=== PATIENT | female | born 1940 | race Caucasian/White ===

== ENCOUNTER 2018-09-24 04:52 | Inpatient (IN) ==
[2018-09-24] MEDS ORDERED: Dexmedetomidine Inj 200 MCG in Sodium Chlor 0.9% Inj 48 ML IV.CONT PRN (05:09)
[2018-09-24] MEDS ORDERED: Etomidate Inj 40 MG/20 ML Vial IV.PUSH ONE (05:09)
[2018-09-24 05:28] LABS: Baso # (Auto) 0.1 th/mm3 (0.0-0.2); Baso % (Auto) 0.2 % (0.0-2.0); Eos # (Auto) 0.9 th/mm3 (0.0-0.4); Eos % (Auto) 2.9 % (0.0-4.0); Hematocrit 51.9 % (35.0-46.0); Hemoglobin 15.9 gm/dL (11.6-15.3); Lymph # (Auto) 2.9 th/mm3 (1.0-4.8); Lymph % (Auto) 9.6 % (9.0-44.0); Mean Corpuscular Hemoglobin 23.1 pg (27.0-34.0); Mean Corpuscular Volume 75.7 fL (80.0-100.0); Mean Platelet Volume 8.3 fL (7.0-11.0); Mono # (Auto) 1.5 th/mm3 (0.0-0.9); Mono % (Auto) 4.8 % (0.0-8.0); Neut # (Auto) 25.3 th/mm3 (1.8-7.7); Neut % (Auto) 82.5 % (16.0-70.0); Platelet Count 665 th/mm3 (150-450); Red Blood Count 6.86 mil/mm3 (4.00-5.30); Red Cell Distribution Width 20.4 % (11.6-17.2); White Blood Count 30.7 th/mm3 (4.0-11.0)
[2018-09-24 05:34] LABS: Mean Corpuscular HGB Conc 30.5 % (32.0-36.0)
--- NOTE | 2018-09-24 05:43 | XR ---
EXAM DATE: 09/24/2018 5:40 AM EST AGE/SEX: 77 years / Female INDICATIONS: Cough. CLINICAL DATA: This is the patient's initial encounter. Patient reports that signs and symptoms have been present for 1 day and indicates a pain score of Nonresponsive. MEDICAL/SURGICAL HISTORY: . Carcinoma, breast. Chronic obstructive pulmonary disease. Hypertens ion. . Mastectomy, bilateral. COMPARISON: No prior exams available for comparison. FINDINGS: Single AP view the chest. Bilateral lower lung zone opacity right greater than left indicating either consolidation or asymmetric pulmonary edema. Mildly enlarged cardiac silhouette. No evidence of pleu ral effusion or pneumothorax. CONCLUSION: 1. Mild right greater than left lower lung zone pulmonary opacity. 2. Mild cardiac silhouette enlargement. Electronically signed by: Magdi Chin MD 09/24/2018 5:42 AM EST
[2018-09-24] MEDS ORDERED: Piperacil/Tazo 4.5 GM Premix 4.5 GM/100 ML BAG IV.SIG STA (05:44)
[2018-09-24 05:47] LABS: ABG Base Excess -2.1 mmol/L (-2-2); ABG PCO2 53 mmHg (38-42); ABG PO2 97 mmHg (61-120)
[2018-09-24 05:48] LABS: Alkaline Phosphatase 148 U/L (45-117); Total Protein 6.9 g/dL (6.4-8.2); Troponin I 0.08 ng/mL (0.02-0.05)
[2018-09-24] MEDS ORDERED: Sod Chloride 0.9% Inj 1,000 ML IV.SIG SCH ×2 (06:00→06:15)
[2018-09-24 06:01] LABS: Alanine Aminotransferase 65 U/L (10-53); Albumin 3.5 g/dL (3.4-5.0); Anion Gap 11 meq/L (5-15); Aspartate Aminotransferase 53 U/L (15-37); Blood Urea Nitrogen 10 mg/dL (7-18); Calcium 8.5 mg/dL (8.5-10.1); Carbon Dioxide 24.2 meq/L (21.0-32.0); Chloride 101 meq/L (98-107); Glomerular Filtration Rate 72 mL/min (>89); Glucose,Random 244 mg/dL (74-106); Potassium 4.4 meq/L (3.5-5.1); Sodium 136 meq/L (136-145)
[2018-09-24] MEDS ORDERED: Sod Chloride 0.9% Inj 100 ML IV.SIG SCH (06:15)
--- NOTE | 2018-09-24 06:23 | ED ---
HPI General Chief Complaint: Respiratory Symptoms Stated Complaint: resp Time Seen by Provider: 09/24/18 05:08 Source: patient and EMS Mode of arrival: EMS Limitations: other History of Present Illness Patient is a 77-year-old female, past medical history significant for COPD not on oxygen at home, who presents with complaint of several days of shortness of breath. She denies any chest or abdominal pain. She denies any fever or chills. EMS states that on their arrival her pulse ox was in the 70s on room air. They gave her 2 duo nebs and one albuterol en route in addition to 125 mg of Solu-Medrol. They state that she has started to appear slightly more comfortable. Patient answers yes or no to questions but is too dyspneic to provide much other information. She denies immobilization or leg swelling. MD Complaint: Reports shortness of breath and anxiety Onset (ago): day(s) Severity: severe Consistency/Duration: constant Relieving factors: nothing Exacerbating factors: nothing Known history of: Reports COPD Treatment prior to arrival: Reports bronchodilator and other Related Data Home Medications Medication Instructions Recorded Confirmed amlodipine 2.5 mg PO DAILY 09/24/18 09/24/18 aspirin 325 mg PO DAILY 09/24/18 09/24/18 atorvastatin 10 mg PO DAILY 09/24/18 09/24/18 calcium carbonate-vitamin D3 1 tab PO QAM 09/24/18 09/24/18 [Calcium 600 + D(3)] fluticasone 1 inh INHALATION Q12H 09/24/18 09/24/18 letrozole 2.5 mg PO DAILY 09/24/18 09/24/18 losartan 50 mg PO BID 09/24/18 09/24/18 magnesium oxide 40 mg PO DAILY 09/24/18 09/24/18 nebivolol [Bystolic] 5 mg PO DAILY 09/24/18 09/24/18 nitroglycerin 0.4 mg SUBLINGUAL Q5-15M PRN 09/24/18 09/24/18 omega 5-zpe-gby-fish oil [Fish Oil] 1,200 mg PO DAILY 09/24/18 09/24/18 pantoprazole [Protonix] 40 mg PO DAILY 09/24/18 09/24/18 polyethylene glycol 3350 [Miralax] 17 g PO DAILY PRN 09/24/18 09/24/18 umeclidinium-vilanterol [Anoro 1 inh INHALATION Q24H 09/24/18 09/24/18 Ellipta] wheat dextrin [Benefiber Sugar 1 packet PO DAILY 09/24/18 09/24/18 Free (dextrin)] Allergies Allergy/AdvReac Type Severity Reaction Status Date / Time No Known Allergies Allergy Uncoded 05/30/15 10:00 Review of Systems ROS Unobtainable ROS Unobtainable: other (unobtainable due to respiratory distress) [facility] Medical History Medical History COPD (chronic obstructive pulmonary disease) (Acute) Diabetes (Acute) HTN (hypertension) (Acute) Surgical History Surgical History H/O mastectomy (Acute) Social History Social History Substance History: Unable to Obtain Smoking Status: Unknown if ever smoked How Often Do You Have a Drink Containing Alcohol: Unable to Obtain Recent Travel in [facility] within the Last 8 Weeks: No Recent Out of Country Travel within the Last 8 Weeks: No Immunization History Tetanus Immunization: Unable to Assess Exam Narrative Exam Narrative: GENERAL: Elderly female in respiratory distress, sitting up and forward SKIN: Focused skin assessment warm. Diaphoretic. HEAD: Atraumatic. Normocephalic. EYES: Pupils equal and round. No scleral icterus. No injection or drainage. ENT: No nasal bleeding or discharge. Mucous membranes pink and moist. NECK: Trachea midline. No JVD. CARDIOVASCULAR: Tachycardic but regular. Intact and equal peripheral pulses. RESPIRATORY: Diminished breath sounds throughout GASTROINTESTINAL: Abdomen soft, non-tender, nondistended. Hepatic and splenic margins not palpable. MUSCULOSKELETAL: No obvious deformities. No clubbing. No cyanosis. No edema. NEUROLOGICAL: Awake and alert. No obvious cranial nerve deficits. Motor grossly within normal limits. PSYCHIATRIC: Anxious Course Initial Documented Vital Signs Pulse Rate 132 H 09/24/18 05:15 Respiratory Rate 30 H 09/24/18 05:15 Pulse Oximetry 99 09/24/18 05:15 Last Documented Vital Signs Pulse Rate 125 H 09/24/18 05:22 Respiratory Rate 30 H 09/24/18 05:22 Blood Pressure 142/95 H 09/24/18 05:22 Pulse Oximetry 97 09/24/18 05:22 Critical Care Time Critical Care Time: Yes Total Critical Care Time: 35 Attestation: Aggregate critical care time was 35 minutes. Time to perform other separately billable procedures was not included in the critical care time. My time did not include minutes spent treating any other patients simultaneously or on activities that did not directly contribute to the patient's treatment. The services I provided to this patient were to treat and/or prevent clinically significant deterioration that could result in: , disability I provided critical care services requiring my management, as noted below: Chart data review, documentation time, medication orders and management, vital sign assessments/reviewing monitor data, ordering and reviewing lab tests, ordering and interpreting/reviewing x-rays and diagnostic studies, care of the patient and discussion of the patient with the admitting physicians. Medical Decision Making MDM Narrative Medical decision making narrative: Patient is a 77-year-old female who presents in respiratory distress. She was received 3 breathing treatments and 125 mg Solu-Medrol with EMS. On arrival she continued to be in respiratory distress and when taken off oxygen brief relief from what I pressed to another her oxygen saturation dropped into the 70s and 80s. She was immediately placed on BiPAP but was exceedingly anxious. She was given 0.5 mg of Ativan after which she tolerated the BiPAP much better. She was then started on a Precedex drip. Labs revealed a markedly elevated leukocytosis and chest x-ray is concerning for pneumonia. Sepsis protocol was initiated. She has not been admitted to the hospital in the last 3 months and thus was given Zosyn for ICU community- acquired pneumonia. She has been admitted to the ICU. Medical Screen Exam Complete: Yes Emergency Medical Condition: Yes Differential Diagnosis Differential Diagnosis: Differential diagnosis includes but is not limited to pneumonia, COPD exacerbation, pulmonary edema, CHF exacerbation, acute coronary syndrome. Medical Records Medical records reviewed: Yes I reviewed the patient's medical records. Lab Data Result diagrams: 09/24/18 05:15 09/24/18 05:15 Lab Results 09/24/18 09/24/18 09/24/18 Range/Units 05:15 05:15 05:15 WBC 30.7 H (4.0-11.0) th/mm3 RBC 6.86 H (4.00-5.30) mil/mm3 Hgb 15.9 H (11.6-15.3) gm/dL Hct 51.9 H (35.0-46.0) % MCV 75.7 L (80.0-100.0) fL MCH 23.1 L (27.0-34.0) pg MCHC 30.5 L (32.0-36.0) % RDW 20.4 H (11.6-17.2) % Plt Count 665 H (150-450) th/mm3 MPV 8.3 (7.0-11.0) fL Prelim Diff (Auto) Slide review pending Neut % (Auto) 82.5 H (16.0-70.0) % Lymph % (Auto) 9.6 (9.0-44.0) % Orange % (Auto) 4.8 (0.0-8.0) % Eos % (Auto) 2.9 (0.0-4.0) % Baso % (Auto) 0.2 (0.0-2.0) % Neut # (Auto) 25.3 H (1.8-7.7) th/mm3 Lymph # (Auto) 2.9 (1.0-4.8) th/mm3 Orange # (Auto) 1.5 H (0.0-0.9) th/mm3 Eos # (Auto) 0.9 H (0.0-0.4) th/mm3 Baso # (Auto) 0.1 (0.0-0.2) th/mm3 Differential Comment . Puncture Site Patient Temperature O2 Saturation (90-100) % ABG pH (7.380-7.420) ABG pCO2 (38-42) mmHg ABG pO2 (61-120) mmHg ABG HCO3 (22-26) mmol/L ABG O2 Content (12.0-20.0) Vol % ABG Base Excess (-2-2) mmol/L ABG Methemoglobin (0-2) % Jorge Test Hemoglobin (12.0-16.0) G/DL Carboxyhemoglobin (0-4) % O2 Delivery Device Vent Setting Inspired O2 % Critical Value Sodium 136 (136-145) meq/L Potassium 4.4 (3.5-5.1) meq/L Chloride 101 (98-107) meq/L Carbon Dioxide 24.2 (21.0-32.0) meq/L Anion Gap 11 (5-15) meq/L BUN 10 (7-18) mg/dL Creatinine 0.78 (0.50-1.00) mg/dL Estimated GFR 72 L (>89) mL/min Random Glucose 244 H (74-106) mg/dL Calcium 8.5 (8.5-10.1) mg/dL Magnesium 2.0 (1.5-2.5) mg/dL Total Bilirubin 0.8 (0.2-1.0) mg/dL AST 53 H (15-37) U/L ALT 65 H (10-53) U/L Alkaline Phosphatase 148 H (45-117) U/L Troponin I 0.08 H (0.02-0.05) ng/mL B-Natriuretic Peptide 194 H (0-100) pg/mL Total Protein 6.9 (6.4-8.2) g/dL Albumin 3.5 (3.4-5.0) g/dL 09/24/18 Range/Units 05:36 WBC (4.0-11.0) th/mm3 RBC (4.00-5.30) mil/mm3 Hgb (11.6-15.3) gm/dL Hct (35.0-46.0) % MCV (80.0-100.0) fL MCH (27.0-34.0) pg MCHC (32.0-36.0) % RDW (11.6-17.2) % Plt Count (150-450) th/mm3 MPV (7.0-11.0) fL Prelim Diff (Auto) Neut % (Auto) (16.0-70.0) % Lymph % (Auto) (9.0-44.0) % Orange % (Auto) (0.0-8.0) % Eos % (Auto) (0.0-4.0) % Baso % (Auto) (0.0-2.0) % Neut # (Auto) (1.8-7.7) th/mm3 Lymph # (Auto) (1.0-4.8) th/mm3 Orange # (Auto) (0.0-0.9) th/mm3 Eos # (Auto) (0.0-0.4) th/mm3 Baso # (Auto) (0.0-0.2) th/mm3 Differential Comment Puncture Site Right radial Patient Temperature 98.6 O2 Saturation 94 (90-100) % ABG pH 7.27 L* (7.380-7.420) ABG pCO2 53 H* (38-42) mmHg ABG pO2 97 (61-120) mmHg ABG HCO3 24 (22-26) mmol/L ABG O2 Content 20.5 H (12.0-20.0) Vol % ABG Base Excess -2.1 L (-2-2) mmol/L ABG Methemoglobin 0.7 (0-2) % Jorge Test Present Hemoglobin 15.5 (12.0-16.0) G/DL Carboxyhemoglobin 1.1 (0-4) % O2 Delivery Device Bipap Vent Setting Cpap 7 Inspired O2 40 % Critical Value Yes Sodium (136-145) meq/L Potassium (3.5-5.1) meq/L Chloride (98-107) meq/L Carbon Dioxide (21.0-32.0) meq/L Anion Gap (5-15) meq/L BUN (7-18) mg/dL Creatinine (0.50-1.00) mg/dL Estimated GFR (>89) mL/min Random Glucose (74-106) mg/dL Calcium (8.5-10.1) mg/dL Magnesium (1.5-2.5) mg/dL Total Bilirubin (0.2-1.0) mg/dL AST (15-37) U/L ALT (10-53) U/L Alkaline Phosphatase (45-117) U/L Troponin I (0.02-0.05) ng/mL B-Natriuretic Peptide (0-100) pg/mL Total Protein (6.4-8.2) g/dL Albumin (3.4-5.0) g/dL Imaging Data Attestation: I personally reviewed and interpreted this imaging study as follows : My impression: Lung space opacity. Radiologist's impression: Chest X-Ray 09/24/18 05:08 CONCLUSION: 1. Mild right greater than left lower lung zone pulmonary opacity. 2. Mild cardiac silhouette enlargement. ECG Data EKG Prior to Arrival: No Attestation: I personally reviewed and interpreted this ECG as follows: (Sinus tachycardia at a rate of [address] or T wave changes. ) Discharge Plan Discharge Disposition Patient Disposition: 30 Still Patient Discharge Condition Condition: Serious Discharge Details Diagnosis: Respiratory failure, Acute exacerbation of chronic obstructive pulmonary disease (COPD), Pneumonia, Sepsis Physicians Team ED Provider: Carolina Canela Primary Care Provider: Pawel Rodriguez Attending Provider: Yolis Castellano Discharge Interventions Interventions: Vital Signs Last Done: 09/24/18 05:22 Status ED Status: Admitted Patient
[2018-09-24] MEDS ORDERED: Potassium Chlor 20 mEq Premix 20 MEQ/100 ML PIGGYBACK IV.SIG PRN ×2 (06:50)
[2018-09-24] MEDS ORDERED: Potassium Phosphate Inj 30 MMOL in Sodium Chlor 0.9% Inj 250 ML IV.SIG PRN (06:50)
[2018-09-24] MEDS ORDERED: Sodium Phosphate Inj 30 MMOL in Sodium Chlor 0.9% Inj 250 ML IV.SIG PRN (06:50)
[2018-09-24] MEDS ORDERED: Bisacodyl 10 MG Supp RECTAL PRN (06:50)
[2018-09-24] MEDS ORDERED: Magnesium Sulfate Inj 4 GM in Sodium Chlor 0.9% Inj 92 ML IV.SIG PRN (06:50)
[2018-09-24] MEDS ORDERED: Potassium Phosphate 500 MG Soluble Tablet PO PRN ×2 (06:50)
[2018-09-24] MEDS ORDERED: Potassium Chlor 40 mEq Premix 40 MEQ/100 ML PIGGYBACK IV.SIG PRN ×2 (06:50)
[2018-09-24] MEDS ORDERED: Magnesium Sulfate Inj 2 GM in Sodium Chlor 0.9% Inj 96 ML IV.SIG PRN (06:50)
[2018-09-24] MEDS ORDERED: Magnesium Oxide 400 MG Tablet PO PRN (06:50)
[2018-09-24] MEDS ORDERED: Potassium Chloride 25 MEQ Effervescent Tablet PO PRN (06:50)
[2018-09-24 06:54] LABS: Metamyelocytes 1 % (0-1); Monocytes 3 % (0-8)
[2018-09-24 06:55] LABS: Acanthocytes Occ; Lymphocytes 11 % (9-44); Ovalocytes 1+
[2018-09-24 06:56] LABS: Platelet Morphology Normal (Normal)
[2018-09-24] MEDS ORDERED: Magnesium Sulfate Inj 2 GM in Sodium Chlor 0.9% Inj 96 ML IV.SIG ONE (06:56)
--- NOTE | 2018-09-24 07:24 | P.HPCC ---
History of Present Illness Service: [facility] [place] Primary Care Physician: Pawel Rodriguez MD Chief Complaint: Shortness of breath History of Present Illness: 77yF presenting to the Emergency Department via EMS with complaint of shortness of breath and cough x 2-3 days. The patient states that she's had a productive cough and is dyspneic both and rest and on exertion, denies fever or chills, chest pain, palpitations, nausea, or myalgias. On EMS arrival, she was found to have a pulse ox in the 70s on room air, was given 125 mg solumedrol and 2 duonebs prior to arrival. In the ED, the patient was tachypneic and somewhat distressed, found to have pH of 7.27 and pCO2 of 53, bibasilar pneumonia (R>L), and appeared anxious. She was placed on bipap but had difficulty tolerating the mask due to anxiety, was given low-dose ativan and started on low-dose precedex drip with relief of anxiety and respiratory distress. No known recent sick contacts or travel. She has a history of COPD, not on home O2, not on chronic or frequent steroids, with home nebulizer/ inhalers, does not use CPAP/ BiPAP, does not follow with a pitch flaker, 1 admission for COPD in the past (no previous ICU admissions), no previous intubations. Former smoking history, quit 40 years ago. Lives at home, no hospitalizations within the past 3 months. Family history is non-contributory. - Diagnosis (1) Community acquired pneumonia (2) Respiratory failure (3) Acute exacerbation of chronic obstructive pulmonary disease (COPD) (4) Sepsis Inpatient Certification: I certify that the inpatient services were ordered in accordance with Medicare regulations governing the order. This includes certification that hospital inpatient services are reasonable and necessary and in the case of services not specified as inpatient-only under 42 CFR 419.22(n), that they are appropriately provided as inpatient services in accordance to with the 2-midnight benchmark under 43 CFR 412.3(e) Estimated Total Length of Stay (Days): 4 Plans for Post Hospital Care: Home Review of Systems All other systems reviewed negative except as stated in HPI Constitutional: Denies fever(s) Ears, Nose, Mouth, and Throat: Reports nasal congestion Cardiovascular: Denies chest pain Respiratory: Reports cough, Reports shortness of breath Gastrointestinal: Denies abdominal pain, Denies nausea Genitourinary: Denies painful urination Musculoskeletal: Denies body aches Neurologic: Denies confusion Psychiatric: Denies confusion [facility] - History History Provided By: Patient, It Operations Manager / EMT - Medical History Medical History: Medical History (Last Reviewed 09/24/18 @ 07:01 by Yolis Castellano DO) COPD (chronic obstructive pulmonary disease) Diabetes HTN (hypertension) - Surgical History Surgical History: Surgical History (Last Reviewed 09/24/18 @ 07:01 by Yolis Castellano DO) H/O mastectomy - Social History I have reviewed the patient's Social History: Yes - Tobacco History Tobacco Use In Past 30 Days: No Smoking Status: Former smoker Tobacco Type: Cigarettes - Alcohol History How Often Do You Have a Drink Containing Alcohol: 2 to 4 times a month - Substance Use History Substance History: No History of Abuse, Unable to Obtain - Travel History History of Recent Travel: No Recent Travel in the [place] Within the Last 8 Weeks: No Recent Travel Out of the Country Within the Last 8 Weeks: No - Immunization History Tetanus Immunization: Unable to Assess Medications and Allergies Active Medications: Active Medications Acetaminophen (Tylenol) 650 mg PO Q6H PRN PRN Reason: PAIN 1-10 AND/OR FEVER >101F Al Hydroxide/Mg Hydroxide (Milk Of Magnlisa Liq) 30 ml PO Q12H PRN PRN Reason: Mild Constipation Albuterol (Albuterol Neb (Ruben)) 2.5 mg NEB Q2HR NEB PRN PRN Reason: SHORTNESS OF BREATH/WHEEZING Albuterol (Duoneb Neb (Prn)) 1 ampul NEB Q4HR NEB [facility] Aspirin (Aspirin) 325 mg PO DAILY [facility] Atorvastatin Calcium (Lipitor) 10 mg PO DAILY [facility] Bisacodyl (Dulcolax Supp) 10 mg RECTAL DAILY PRN PRN Reason: SEVERE CONSITIPATION Chlorhexidine Gluconate (Chlorhexidine 2% Cloth) 3 pack TOPICAL DAILY@0400 RUBEN Stop: 09/30/18 03:59 Chlorhexidine Gluconate (Chlorhexidine 2% Cloth) 3 pack TOPICAL DAILY@0400 PRN PRN Reason: Extra cloth needed Stop: 09/30/18 03:59 Enoxaparin Sodium (Lovenox Inj) 40 mg SQ Q24H [facility] Dexmedetomidine HCl 200 mcg/ (Sodium Chloride) 50 mls @ 3.25 mls/hr IV.CONT TITRATE PRN; Protocol PRN Reason: Per Protocol Last Admin: 09/24/18 05:37 Dose: 0.2 mcg/kg/hr, 3.25 mls/hr Sodium Chloride (Ns Inj) 1,000 mls @ 0 mls/hr IV.SIG .Q0M RUBEN Sodium Chloride (Ns Inj) 1,000 mls @ 0 mls/hr IV.SIG .Q0M RUBEN Sodium Chloride (Ns Inj) 100 mls @ 0 mls/hr IV.SIG .Q0M RUBEN Magnesium Sulfate 4 gm/ Sodium (Chloride) 100 mls @ 50 mls/hr IV.SIG UNSCH PRN PRN Reason: For Magnesium 0.9 - 1.1 mg/dL Potassium Chloride (Kcl 40 Meq Premix Inj) 40 meq in 100 mls @ 25 mls/hr IV.SIG Q2H PRN PRN Reason: For Potassium 2.8 - 3.2 mEq/L Potassium Chloride (Kcl 20 Meq Premix Inj) 20 meq in 100 mls @ 50 mls/hr IV.SIG Q2H PRN PRN Reason: For Potassium 3.3 - 3.5 mEq/L Potassium Chloride (Kcl 20 Meq Premix Inj) 20 meq in 100 mls @ 50 mls/hr IV.SIG Q2H PRN PRN Reason: For Potassium 2.8 - 3.2 mEq/L Potassium Phosphate 30 mmol/ (Sodium Chloride) 260 mls @ 42 mls/hr IV.SIG UNSCH PRN PRN Reason: SEE LABEL COMMENTS Sodium Phosphate 30 mmol/ (Sodium Chloride) 260 mls @ 42 mls/hr IV.SIG UNSCH PRN PRN Reason: For Phosphorus < 2.5 mg/dL Magnesium Sulfate 2 gm/ Sodium (Chloride) 100 mls @ 50 mls/hr IV.SIG UNSCH PRN PRN Reason: For Magnesium 1.2 - 1.6 mg/dL Potassium Chloride (Kcl 40 Meq Premix Inj) 40 meq in 100 mls @ 25 mls/hr IV.SIG UNSCH PRN PRN Reason: For Potassium 3.3 - 3.5 mEq/L Magnesium Sulfate 2 gm/ Sodium (Chloride) 100 mls @ 50 mls/hr IV.SIG ONCE ONE Stop: 09/24/18 08:55 Ipratropium Parsons (Atrovent Neb) 0.5 mg NEB Q2HR NEB PRN PRN Reason: WHEEZING Lactulose (Lactulose Liq) 30 ml PO DAILY PRN PRN Reason: SEVERE CONSITIPATION Losartan Potassium (Cozaar) 50 mg PO BID [facility] Magnesium Oxide (Mag-Ox) 800 mg PO UNSCH PRN PRN Reason: For Magnesium 1.2 - 1.6 mg/dL Nebivolol (Bystolic) 5 mg PO DAILY [facility] Nitroglycerin (Nitrostat Sl (Override)) 0.4 mg SL Q5-15M PRN PRN Reason: Constipation Non-Formulary Medication (Amlodipine [Amlodipine]) 2.5 mg PO DAILY RUBEN Non-Formulary Medication (Fluticasone [Fluticasone]) 1 inh INHALATION Q12H RUBEN Non-Formulary Medication (Letrozole [Letrozole]) 2.5 mg PO DAILY [facility] Ondansetron HCl (Zofran Inj) 4 mg IV.PUSH Q6H PRN PRN Reason: NAUSEA OR VOMITING Potassium Bicarb/Potassium Chloride (K-Lyte Cl Eff) 50 meq PO UNSCH PRN PRN Reason: For Potassium 3.3 - 3.5 mEq/L Potassium Phosphate (K-Phos Original) 2,000 mg PO Q4H PRN PRN Reason: Phosphorus Less Than 2.5 mg/dL Potassium Phosphate (K-Phos Original) 2,000 mg PO UNSCH PRN PRN Reason: SEE LABEL COMMENTS Senna/Docusate Sodium (Ita-Colace) 1 tab PO BID [facility] Sennosides (Senokot) 17.2 mg PO Q12H PRN PRN Reason: Moderate Constipation Sodium Chloride (Ns Flush) 2 ml IV.FLUSH BID [facility] Sodium Chloride (Ns Flush) 2 ml IV.FLUSH PRN PRN PRN Reason: FLUSH AFTER USING IV ACCESS Umeclidinium/Vilanterol (Anoro-Ellipta 62.5/25 Mcg Inh) inhalation INH Q24H [facility] Allergies Allergy/AdvReac Type Severity Reaction Status Date / Time No Known Allergies Allergy Uncoded 05/30/15 10:00 Home Medications Medication Instructions Recorded Confirmed Type amlodipine 2.5 mg PO DAILY 09/24/18 09/24/18 History aspirin 325 mg PO DAILY 09/24/18 09/24/18 History atorvastatin 10 mg PO DAILY 09/24/18 09/24/18 History calcium carbonate-vitamin D3 1 tab PO QAM 09/24/18 09/24/18 History [Calcium 600 + D(3)] fluticasone 1 inh INHALATION Q12H 09/24/18 09/24/18 History letrozole 2.5 mg PO DAILY 09/24/18 09/24/18 History losartan 50 mg PO BID 09/24/18 09/24/18 History magnesium oxide 40 mg PO DAILY 09/24/18 09/24/18 History nebivolol [Bystolic] 5 mg PO DAILY 09/24/18 09/24/18 History nitroglycerin 0.4 mg SUBLINGUAL Q5-15M PRN 09/24/18 09/24/18 History omega 0-gic-oxy-fish oil [Fish Oil] 1,200 mg PO DAILY 09/24/18 09/24/18 History pantoprazole [Protonix] 40 mg PO DAILY 09/24/18 09/24/18 History polyethylene glycol 3350 [Miralax] 17 g PO DAILY PRN 09/24/18 09/24/18 History umeclidinium-vilanterol [Anoro 1 inh INHALATION Q24H 09/24/18 09/24/18 History Ellipta] wheat dextrin [Benefiber Sugar 1 packet PO DAILY 09/24/18 09/24/18 History Free (dextrin)] Results - Labs CBC & Chem 7: 09/24/18 05:15 09/24/18 05:15 Labs: Short CBC 09/24/18 Range/Units 05:15 WBC 30.7 H (4.0-11.0) th/mm3 Hgb 15.9 H (11.6-15.3) gm/dL Hct 51.9 H (35.0-46.0) % Plt Count 665 H (150-450) th/mm3 BMP 09/24/18 05:15 Sodium 136 Potassium 4.4 Chloride 101 Carbon Dioxide 24.2 BUN 10 Creatinine 0.78 Calcium 8.5 Cardiac Enzymes 09/24/18 Range/Units 05:15 Troponin I 0.08 H (0.02-0.05) ng/mL Liver Function 09/24/18 Range/Units 05:15 Total Bilirubin 0.8 (0.2-1.0) mg/dL AST 53 H (15-37) U/L ALT 65 H (10-53) U/L Alkaline Phosphatase 148 H (45-117) U/L Albumin 3.5 (3.4-5.0) g/dL - Imaging Impressions Chest X-Ray 09/24/18 05:08 CONCLUSION: 1. Mild right greater than left lower lung zone pulmonary opacity. 2. Mild cardiac silhouette enlargement. - ABG ABG results: 7.27/53/97/24/-2.1 Attestation: I personally reviewed and interpreted this ABG as follows: Interpretation: Acute respiratory acidosis Exam Vital signs: Vital Signs 09/24/18 05:15 09/24/18 05:22 Pulse Rate 132 H 125 H Respiratory Rate 30 H 30 H Blood Pressure 142/95 H Pulse Oximetry 99 97 Intake & Output 09/23/18 09/23/18 09/24/18 06:59 18:59 06:59 Weight 65 kg Narrative: GEN: Elderly female resting comfortably on bipap, no acute distress HEENT: NCAT, pupils 3 mm and reactive NECK: Trachea midline, no JVD CARDIO: Borderline tachy in 100s, regular, no murmurs PULM: Diminished breath sounds bilaterally, prolonged expiratory phase, no audible wheeze, mildly tachypneic but speaking in complete sentences, tolerating bipap well ABD/GI: Soft, non-tender in all quadrants, non-distended EXT/MSK: No peripheral edema SKIN: Warm and well-perfused NEURO: GCS 15, speech clear and fluent, no focal deficits PSYCH: Appears calm, currently on precedex @ 0.2 mcg/kg/min Caprini VTE Risk Assessment Caprini VTE Risk Assessment: Moderate/High Risk (score >= 2) Caprini Risk Assessment Model: Point Value = 1 Point Value = 2 Point Value = 3 Point Value = 5 Age 41-60 Minor surgery BMI > 25 kg/m2 Swollen legs Varicose veins or History of unexplained or recurrent spontaneous Oral contraceptives or hormone replacement Sepsis (< 1 month) Serious lung disease, including pneumonia (< 1 month) Abnormal pulmonary function Acute myocardial infarction Congestive heart failure (< 1 month) History of inflammatory bowel disease Medical patient at bed rest Age 61-74 Arthroscopic surgery Major open surgery (> 45 min) Laparoscopic surgery (> 45 min) Malignancy Confined to bed (> 72 hours) Immobilizing plaster cast Central venous access Age >= 75 History of VTE Family history of VTE Factor V Leiden Prothrombin [id number] Lupus anticoagulant Anticardiolipin antibodies Elevated serum homocysteine Heparin-induced thrombocytopenia Other congenital or acquired thrombophilia Stroke (< 1 month) Elective arthroplasty Hip, pelvis, or leg fracture Acute spinal cord injury (< 1 month) Prophylaxis Regimen: Total Risk Factor Score Risk Level Prophylaxis Regimen 0-1 Low Early ambulation 2 Moderate Order ONE of the following: *Sequential Compression Device (SCD) *Heparin 5000 units SQ BID 3-4 Higher Order ONE of the following medications: *Heparin 5000 units SQ TID *Enoxaparin/Lovenox 40 mg SQ daily (WT < 150 kg, CrCl > 30 mL/min) *Enoxaparin/Lovenox 30 mg SQ daily (WT < 150 kg, CrCl > 10-29 mL/min) *Enoxaparin/Lovenox 30 mg SQ BID (WT < 150 kg, CrCl > 30 mL/min) AND/OR *Sequential Compression Device (SCD) 5 or more Highest Order ONE of the following medications: *Heparin 5000 units SQ TID (Preferred with Epidurals) *Enoxaparin/Lovenox 40 mg SQ daily (WT < 150 kg, CrCl > 30 mL/min) *Enoxaparin/Lovenox 30 mg SQ daily (WT < 150 kg, CrCl > 10-29 mL/min) *Enoxaparin/Lovenox 30 mg SQ BID (WT < 150 kg, CrCl > 30 mL/min) AND *Sequential Compression Device (SCD) Assessment and Plan - Problem List (1) Community acquired pneumonia Code(s): J18.9 - Pneumonia, unspecified organism Status: Acute (2) Respiratory failure Code(s): J96.90 - Respiratory failure, unspecified, unspecified whether with hypoxia or hypercapnia Status: Acute (3) Acute exacerbation of chronic obstructive pulmonary disease (COPD) Code(s): J44.1 - Chronic obstructive pulmonary disease with (acute) exacerbation Status: Acute (4) Sepsis Code(s): A41.9 - Sepsis, unspecified organism Status: Acute - Assessment and Plan Plan: 77yF presenting with acute COPD exacerbation, sepsis secondary to community acquired pneumonia of bilateral lower lobes, acute hypoxic and hypercapneic respiratory failure requiring non-invasive ventilation NEURO: -Currently on low-dose precedex gtt for anxiety, tolerating bipap without difficulty, wean as tolerated -Delirium precautions CARDIO: -Initial trop 0.08, EKG reviewed- sinus tachycardia at 107 BPM, normal axis, normal intervals, QTc 425 ms, Q waves in V2, no T wave inversions, no ST or T wave changes -Trend trops -BNP 200, monitor for signs of fluid overload -Patient takes 324 mg aspirin daily at home, continue -Continue home doses of amlodipine, nevibolol, losartan, atorvastatin -quality assurance monitor PULM: -Given 125 mg solumedrol by EMS prior to arrival, continue 40 mg q6h -Continue PRN and scheduled nebs -Bipap for now, recheck ABG this morning * If CO2 is improved, will trial off bipap so patient can eat lunch, will place her back on bipap this afternoon/ overnight -Will give 1 time dose of MgSO4 now for smooth muscle relaxation -Incentive spirometry when not on bipap F/E/N: -Given 30 cc/kg crystalloid bolus in ED -Will hold off on maintenance fluids for now -Electrolyte replacement protocol -Cardiac diet when off bipap ID: -Community acquired pneumonia: given zosyn in ED, continue zosyn/ azithromycin for ICU CAP -Blood cultures sent and pending -UA with reflex culture pending, check urine legionella -Lactic acid 1.5 -WBCs 30K, 6% bands, trend PROPHY: -PPI (patient is on protonix at home) -SCDs, lovenox OVERALL: This patient is critically ill with sepsis secondary to community acquired pneumonia, COPD with acute exacerbation, and acute hypoxic and hypercapneic respiratory failure requiring non-invasive ventilation. She requires ICU level of care. Counseling/ Coordination of Care: This patient is critically ill with impairment of one or more vital organ systems with a high probability of imminent or life-threatening deterioration. High-complexity medical decision making was required to support vital organ function and/ or prevent deterioration in the patient's condition. Total critical care time spent is 62 minutes giving full attention to this patient. This includes examining the patient, gathering history from someone other than the patient (i.e. chart review), discussing the patient's care with other providers, managing the patient's bipap settings, reviewing radiologic studies, ordering and interpreting laboratory values, managing the patient's sedation requirements, re-evaluation at frequent intervals, and documentation. Amount of time is separate from teaching, counseling the patient and/or family, and exclusive of procedures. Code Status: Full (1) Community acquired pneumonia Qualifiers: Lung location: lower lobe of lung (2) Respiratory failure Qualifiers: Chronicity: acute on chronic Respiratory failure complication: hypoxia and hypercapnia Qualified Code(s): J96.21 - Acute and chronic respiratory failure with hypoxia; J96.22 - Acute and chronic respiratory failure with hypercapnia (4) Sepsis Qualifiers: Sepsis type: sepsis due to unspecified organism Qualified Code(s): A41.9 - Sepsis, unspecified organism
[2018-09-24 08:01] LABS: ABG Base Excess -1.9 mmol/L (-2-2); ABG PCO2 44 mmHg (38-42); ABG PO2 87 mmHg (61-120)
[2018-09-24] MEDS: Enoxaparin Inj 40 MG/0.4 ML Syringe SQ SCH (08:11)
[2018-09-24] MEDS: Azithromycin Inj 500 MG in Sodium Chlor 0.9% Inj 250 ML IV.SIG SCH (08:20)
[2018-09-24] MEDS ORDERED: LETROZOLE 2.5 MG PO SCH (09:00)
[2018-09-24] MEDS: amLODIPine 5 MG Tablet PO SCH (09:51)
[2018-09-24] MEDS: Aspirin 325 MG Tablet PO SCH (10:50)
[2018-09-24] MEDS: Senna/Docusate Sodium 8.6/50 MG Tablet PO SCH ×2 (10:56→21:06)
[2018-09-24] MEDS: Umeclindinium 62.5 MCG/Vilanterol 25 MCG Inhaler INH SCH (11:18)
[2018-09-24] MEDS: Acetaminophen 325 MG Tablet PO PRN (12:48)
[2018-09-24] MEDS: Piperacil/Tazo 4.5 GM Premix 4.5 GM/100 ML BAG IV.SIG SCH ×2 (12:49→18:01)
[2018-09-24] MEDS: MethylPREDNISolone Sod Succinate Inj 40 MG/ML Vial IV.PUSH SCH ×2 (12:50→17:56)
[2018-09-24] MEDS ORDERED: Dextrose 50% in Water 50 ML Vial IV.PUSH PRN (13:22)
[2018-09-24] MEDS ORDERED: Melatonin 5 MG Tablet PO PRN (13:23)
--- NOTE | 2018-09-24 15:13 | ECG ---
Date Performed: 09/24/2018 Time Performed: 05:16:01 PTAGE: 77 years EKG: SINUS TACHYCARDIA POOR R WAVE PROGRESSION, CANNOT EXCLUDE SEPTAL INFARCT VS LEAD PLACEMENT VENTRICULAR PREMATURE COMPLEXES NONSPECIFIC ST ABNORMALITY Compared to previous tracing, there has be en loss of R-wave in V2, but that could be lead placement. Sinus rate has increased. The ectopy is ne w. ABNORMAL ECG PREVIOUS TRACING : 05/30/2015 15.37 DOCTOR: Ruel Street Interpretating Date/Time 09/24/2018 15:13:36
--- NOTE | 2018-09-24 15:15 | ECG ---
Date Performed: 09/24/2018 Time Performed: 06:26:40 PTAGE: 77 years EKG: SINUS TACHYCARDIA SEPTAL MYOCARDIAL INFARCTION Mild nonspecific ST abnormality laterally Po ssible poor R-wave progression vs. septal infarct No change from prior tracing. ABNORMAL ECG PREVIOUS TRACING : 09/24/2018 05.16 DOCTOR: Ruel Street Interpretating Date/Time 09/24/2018 15:14:42
[2018-09-24 16:41] LABS: Bilirubin,Urine Negative (Negative); Clarity,Urine Clear (Clear); Color,Urine Yellow (Yellw/Straw); Glucose,Urine (UA) 500 or Greater mg/dL (Negative); Leukocyte Esterase,Urine Negative (Negative); Mucus,Urine Few /lpf (Occasional); Nitrite,Urine Negative (Negative); Specific Gravity,Urine 1.028 (1.002-1.035); Squamous Epithelial Cell,Urine 1 /hpf (0-5); Transitional Epi Cells,Urine <1 /hpf
--- NOTE | 2018-09-24 17:51 | ECHRPT ---
Indication: SOB, COPD, SEPSIS CONCLUSIONS Normal left ventricular size. Wall thickness is normal. The left ventricular systolic function is low normal with an estimated ejection fraction in the rang e of 50- 55%. There are distinct regional wall motion abnormalities. Mild thickening of the mitral valve leaflets. Trace mitral valve regurgitation. There is trace tricuspid valve regurgitation. The estimated pulmonary arterial pressure is 35 mmHg. There is less than 50% respiratory change in dimension of the inferior vena cava (abnormal). BP: / HR: Rhythm: Sinus MEASUREMENTS (Male / Female) Normal Values Technical Quality:Fair 2D ECHO LV Diastolic Diameter PLAX 5.1 cm 4.2 - 5.9 / 3.9 - 5.3 cm LV Systolic Diameter PLAX 4.0 cm IVS Diastolic Thickness 0.9 cm 0.6 - 1.0 / 0.6 - 0.9 cm LVPW Diastolic Thickness 0.9 cm 0.6 - 1.0 / 0.6 - 0.9 cm LV Relative Wall Thickness 0.4 RV Internal Dim ED PLAX 3.6 cm LVOT Diameter 2.1 cm Aortic Root Diameter 3.8 cm LA Systolic Diameter LX 3.6 cm 3.0 - 4.0 / 2.7 - 3.8 cm M-MODE AV Cusp Separation MM 2.2 cm DOPPLER AV Peak Velocity 96.5 cm/s AV Peak Gradient 3.7 mmHg AV Mean Gradient 2.0 mmHg AV Velocity Time Integral 17.5 cm LVOT Peak Velocity 82.7 cm/s LVOT Peak Gradient 2.7 mmHg LVOT Velocity Time Integral 15.4 cm AV Area Cont Eq vti 3.0 cm AV Area Cont Eq pk 3.0 cm LV E' Lateral Velocity 7.5 cm/s LV E' Septal Velocity 4.2 cm/s TR Peak Velocity 250.0 cm/s TR Peak Gradient 25.0 mmHg Right Atrial Pressure 10.0 mmHg Pulmonary Artery Systolic Pressu 35.0 mmHg Right Ventricular Systolic Press 35.0 mmHg PV Peak Velocity 56.0 cm/s PV Peak Gradient 1.3 mmHg FINDINGS LEFT VENTRICLE Normal left ventricular size. Wall thickness is normal. The left ventricular systolic function is low normal with an estimated ejection fraction in the rang e of 50- 55%. There are distinct regional wall motion abnormalities. RIGHT VENTRICLE Normal right ventricular size and systolic function. LEFT ATRIUM The left atrial size is normal. RIGHT ATRIUM The right atrial size is normal. ATRIAL SEPTUM No atrial level shunt is demonstrated by color flow Doppler interrogation. AORTA The aortic root and proximal ascending aorta are normal in size on limited imaging. MITRAL VALVE Mild thickening of the mitral valve leaflets. Trace mitral valve regurgitation. AORTIC VALVE Trileaflet aortic valve. No aortic valve stenosis or regurgitation. TRICUSPID VALVE There is trace tricuspid valve regurgitation. The estimated pulmonary arterial pressure is 35 mmHg. PULMONARY VALVE No pulmonary valve regurgitation or stenosis. VESSELS There is less than 50% respiratory change in dimension of the inferior vena cava (abnormal). PERICARDIUM No pericardial effusion. Brendon Maria MD, FACC, [facility] [place] (Electronically Signed) Final Date:24 September 2018 17:49
[2018-09-24] MEDS: Insulin NovoLIN Regular Correctional Sugar Inj SQ SCH ×2 (17:55→21:19)
[2018-09-25] MEDS ORDERED: Chlorhexidine Gluconate 2% 1 Pack (2 Cloths) TOPICAL PRN (04:00)
[2018-09-25] MEDS: MethylPREDNISolone Sod Succinate Inj 40 MG/ML Vial IV.PUSH SCH ×5 (04:16→23:55)
[2018-09-25] MEDS: Chlorhexidine Gluconate 2% 1 Pack (2 Cloths) TOPICAL SCH (04:17)
[2018-09-25] MEDS: Piperacil/Tazo 4.5 GM Premix 4.5 GM/100 ML BAG IV.SIG SCH ×4 (04:17→18:06)
[2018-09-25 04:36] LABS: Baso % (Auto) 0.2 % (0.0-2.0); Eos % (Auto) 0.1 % (0.0-4.0); Hematocrit 45.6 % (35.0-46.0); Hemoglobin 14.4 gm/dL (11.6-15.3); Lymph # (Auto) 0.5 th/mm3 (1.0-4.8); Lymph % (Auto) 2.5 % (9.0-44.0); Mean Corpuscular HGB Conc 31.6 % (32.0-36.0); Mean Corpuscular Hemoglobin 23.5 pg (27.0-34.0); Mean Corpuscular Volume 74.5 fL (80.0-100.0); Mean Platelet Volume 8.6 fL (7.0-11.0); Mono # (Auto) 0.5 th/mm3 (0.0-0.9); Mono % (Auto) 2.7 % (0.0-8.0); Neut # (Auto) 19.4 th/mm3 (1.8-7.7); Neut % (Auto) 94.5 % (16.0-70.0); Platelet Count 456 th/mm3 (150-450); Red Blood Count 6.12 mil/mm3 (4.00-5.30); Red Cell Distribution Width 19.4 % (11.6-17.2); White Blood Count 20.5 th/mm3 (4.0-11.0)
[2018-09-25 05:04] LABS: Albumin 3.2 g/dL (3.4-5.0); Anion Gap 10 meq/L (5-15); Aspartate Aminotransferase 69 U/L (15-37); Blood Urea Nitrogen 10 mg/dL (7-18); Calcium 8.5 mg/dL (8.5-10.1); Carbon Dioxide 24.5 meq/L (21.0-32.0); Chloride 101 meq/L (98-107); Glomerular Filtration Rate 74 mL/min (>89); Glucose,Random 210 mg/dL (74-106); Sodium 135 meq/L (136-145)
[2018-09-25 05:06] LABS: Alanine Aminotransferase 110 U/L (10-53); Phosphorus 2.6 mg/dL (2.5-4.9)
[2018-09-25 05:09] LABS: Alkaline Phosphatase 130 U/L (45-117); Total Protein 6.3 g/dL (6.4-8.2); Troponin I 0.42 ng/mL (0.02-0.05)
[2018-09-25] MEDS: Azithromycin Inj 500 MG in Sodium Chlor 0.9% Inj 250 ML IV.SIG SCH (08:06)
[2018-09-25] MEDS: Insulin NovoLIN Regular Correctional Sugar Inj SQ SCH ×4 (08:07→20:42)
[2018-09-25] MEDS: Umeclindinium 62.5 MCG/Vilanterol 25 MCG Inhaler INH SCH (08:07)
[2018-09-25] MEDS: Enoxaparin Inj 40 MG/0.4 ML Syringe SQ SCH (08:08)
[2018-09-25] MEDS: Aspirin 325 MG Tablet PO SCH (08:12)
[2018-09-25] MEDS: Senna/Docusate Sodium 8.6/50 MG Tablet PO SCH ×2 (08:12→20:15)
[2018-09-25] MEDS: amLODIPine 5 MG Tablet PO SCH (08:15)
--- NOTE | 2018-09-25 13:26 | P.PNCC ---
Subjective Subjective Remarks/Hospital Course: 77yF presenting to the Emergency Department via EMS with complaint of shortness of breath and cough x 2-3 days. The patient states that she's had a productive cough and is dyspneic both and rest and on exertion, denies fever or chills, chest pain, palpitations, nausea, or myalgias. On EMS arrival, she was found to have a pulse ox in the 70s on room air, was given 125 mg solumedrol and 2 duonebs prior to arrival. In the ED, the patient was tachypneic and somewhat distressed, found to have pH of 7.27 and pCO2 of 53, bibasilar pneumonia (R>L), and appeared anxious. She was placed on bipap but had difficulty tolerating the mask due to anxiety, was given low-dose ativan and started on low-dose precedex drip with relief of anxiety and respiratory distress. No known recent sick contacts or travel. 09/25: Patient eating lunch, on nasal cannula, reports that she slept well last night and offers no complaints. Objective Vital Signs / I&O: Vital Signs 09/24/18 14:00 09/24/18 15:00 09/24/18 16:00 Temperature 98.6 F Pulse Rate 98 H 90 91 H Respiratory Rate 39 H 23 41 H Blood Pressure 133/82 130/86 140/86 Pulse Oximetry 98 96 96 09/24/18 17:00 09/24/18 18:00 09/24/18 20:00 Temperature 98.2 F Pulse Rate 95 H 87 92 H Respiratory Rate 29 H 38 H 23 Blood Pressure 138/83 128/83 129/76 Pulse Oximetry 97 97 97 09/24/18 20:52 09/24/18 22:00 09/24/18 23:00 Temperature Pulse Rate 84 83 77 Respiratory Rate 19 18 25 H Blood Pressure 116/69 102/53 L Pulse Oximetry 95 94 L 95 09/25/18 00:00 09/25/18 00:48 09/25/18 01:00 Temperature Pulse Rate 89 90 93 H Respiratory Rate 16 24 25 H Blood Pressure 99/58 L 126/74 Pulse Oximetry 96 96 09/25/18 02:00 09/25/18 04:00 09/25/18 05:00 Temperature Pulse Rate 90 87 74 Respiratory Rate 17 17 Blood Pressure 114/59 L 98/54 L Pulse Oximetry 94 L 96 09/25/18 06:00 09/25/18 07:00 09/25/18 07:42 Temperature Pulse Rate 73 70 89 Respiratory Rate 17 16 36 H Blood Pressure 109/57 L 102/58 L Pulse Oximetry 96 97 96 09/25/18 08:00 09/25/18 08:10 09/25/18 08:11 Temperature 98.7 F Pulse Rate 86 89 Respiratory Rate 36 H Blood Pressure 107/71 Pulse Oximetry 96 93 L 09/25/18 09:00 09/25/18 10:00 09/25/18 11:00 Temperature Pulse Rate 78 83 76 Respiratory Rate 27 H 35 H 29 H Blood Pressure 137/64 122/71 123/63 Pulse Oximetry 96 97 96 09/25/18 11:16 09/25/18 12:00 09/25/18 13:00 Temperature 98.9 F Pulse Rate 77 91 H 84 Respiratory Rate 20 26 H 23 Blood Pressure 116/61 119/66 Pulse Oximetry 94 L 93 L 96 Intake & Output 09/24/18 09/25/18 09/25/18 18:59 06:59 18:59 Intake Total 650 / 650 340 / 340 400 / 400 Balance 650 / 650 340 / 340 400 / 400 Weight 79.5 kg Intake: IV 650 / 650 100 / 100 400 / 400 Precedex Inj 200 MCG In NS Inj 50 / 50 48 ML @ 0.2 MCG/KG/HR 3.25 mls/ hr IV.CONT TITRATE PRN Rx#: [id number] Azithromycin Inj 500 MG In NS 250 / 250 250 / 250 Inj 250 ML @ 250 mls/hr IV.SIG Q24H [facility] Rx#:[id number] Magnesium Sulfate Inj 2 GM In 100 / 100 NS Inj 96 ML @ 50 mls/hr IV.SIG ONCE ONE Rx#:[id number] Zosyn 4.5 GM Premix 4.5 gm In 300 / 300 100 / 100 100 / 100 100 ml @ 200 mls/hr IV.SIG Q6H [facility] Rx#:[id number] Oral 240 / 240 Other: # Voids 2 2 Date of Last Bowel Movement 09/23/18 09/24/18 09/24/18 # Bowel Movements 0 Result Diagrams: 09/25/18 02:57 09/25/18 02:57 Objective Remarks: GEN: Elderly female sitting up at side of bed, no acute distress HEENT: NCAT, PERRL NECK: Trachea midline CARDIO: Regular rate and rhythm PULM: Improved air entry bilaterally, no respiratory distress, no wheezing or rhonchi, normal work of breathing ABD/GI: Soft, non-tender in all quadrants, non-distended EXT/MSK: No peripheral edema SKIN: Warm and well-perfused NEURO: GCS 15, speech clear and fluent, no focal deficits PSYCH: Calm, no agitation Assessment and Plan - Problem List (1) Community acquired pneumonia Code(s): J18.9 - Pneumonia, unspecified organism Status: Acute (2) Respiratory failure Code(s): J96.90 - Respiratory failure, unspecified, unspecified whether with hypoxia or hypercapnia Status: Acute (3) Acute exacerbation of chronic obstructive pulmonary disease (COPD) Code(s): J44.1 - Chronic obstructive pulmonary disease with (acute) exacerbation Status: Acute (4) Sepsis Code(s): A41.9 - Sepsis, unspecified organism Status: Acute - Assessment and Plan Plan: 77yF presenting with acute COPD exacerbation, sepsis secondary to community acquired pneumonia of bilateral lower lobes, acute hypoxic and hypercapneic respiratory failure requiring non-invasive ventilation NEURO: -Off precedex, no agitation -Delirium precautions CARDIO: -Trop peaked at 0.77, now trending down, no ST/T wave changes on EKG, likely Type 2 NSTEMI/ demand ischemia secondary to PNA and COPD exacerbation -Echo shows EF 50-55%, trace MR/TR, PAP 35 mmHg, with wall motion abnormalities noted * Will consult cardio as patient may need ischemic workup prior to discharge or as outpatient -Patient takes 324 mg aspirin daily at home, continue -Continue home doses of amlodipine, nevibolol, losartan, atorvastatin -satellite project site monitor PULM: -Given 125 mg solumedrol by EMS prior to arrival, continue 40 mg q6h -Continue PRN and scheduled nebs -Incentive spirometry -Supplemental O2 PRN, check ambulatory pulse ox F/E/N: -Electrolyte replacement protocol -Cardiac diet ID: -Community acquired pneumonia: given zosyn in ED, continue zosyn/ azithromycin for ICU CAP, narrow based on culture results -Blood cultures- no growth at 1 day -UA negative -Urine legionella antigen negative -Leukocytosis improving, afebrile overnight PROPHY: -PPI (patient is on protonix at home) -SCDs, lovenox OVERALL: Patient is overall much improved, no respiratory distress at present, can be transferred to hospitalist service/ out of [facility] Level 2 follow up To help prompt me to consider important information that might be impacting today's encounter and assessment, information from prior notes written by myself or my colleagues may have been "brought forward" into today's note. My signature on this note, however, is an attestation that I personally performed the exam, history, and/or decision-making noted today, and, unless otherwise indicated, the interactions with patient, family, and staff as well as the review of records all occurred today. I also attest that the listed assessment and stated plan reflect my best clinical judgment today based on the combination of historical information, prior notes, and today's exam/ interactions. Code Status: Full (1) Community acquired pneumonia Qualifiers: Lung location: lower lobe of lung (2) Respiratory failure Qualifiers: Chronicity: acute on chronic Respiratory failure complication: hypoxia and hypercapnia Qualified Code(s): J96.21 - Acute and chronic respiratory failure with hypoxia; J96.22 - Acute and chronic respiratory failure with hypercapnia (4) Sepsis Qualifiers: Sepsis type: sepsis due to unspecified organism Qualified Code(s): A41.9 - Sepsis, unspecified organism
--- NOTE | 2018-09-25 17:34 | MB ---
cc: Ruel Street MD DATE: 09/25/2018 REASON FOR CONSULTATION: Evaluation of elevated troponin. HISTORY OF PRESENT ILLNESS: Rajni Randolph is a 77-year-old woman admitted with severe COPD exacerbation. She had saturations on room air down to the 70s and was profoundly short of breath. She has a history of shortness of breath walking just minimal distances. She has COPD, having quit smoking 35-40 years ago, but had radiation therapy extensively a few years ago. She has dyspnea with minimal exertion. She has other risk factors including diabetes, hypertension, family history of aneurysm and elevated cholesterol, for which she takes medications. She really does not have any typical angina. She had a little heaviness in her chest apparently yesterday, does not have any today. With her physical activity she gets short of breath, but no chest pain. Her troponin was significantly elevated when she came in, but as mentioned, she was severely hypoxic. PAST MEDICAL HISTORY: She has had lung cancer with bilateral mastectomy, which was radical on the left side. She had 6 chemotherapy treatments and 33 radiation therapy treatments. She has diabetes, hypertension, COPD. There is also a history of cerebral aneurysm. SOCIAL HISTORY: She quit smoking 35-40 years ago. 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 FAMILY HISTORY: Mother of abdominal aortic aneurysm. Father of leukemia. PHYSICAL EXAMINATION: GENERAL: Well-developed, well-nourished female, in no acute distress. She is wearing oxygen nasal cannula. VITAL SIGNS: Charted. Her amlodipine was held due to low blood pressures. HEENT: Unremarkable. NECK: Negative for JVD or bruits. CHEST: Shows severely diminished breath sounds throughout. CARDIAC: Shows distant S1, S2. Regular rate and rhythm without murmurs or gallops. ABDOMEN: Obese, soft, nontender. EXTREMITIES: Show no peripheral edema. I can feel her left posterior tibial pulse easily. I could not feel any of the other pedal pulses well. Femoral pulses, however, strong with no bruits. Radial artery pulses are strong. Her echocardiogram was reported as showing preserved LV function. EKG shows sinus rhythm, poor R-wave progression, cannot exclude anteroseptal SC with nonspecific ST-T wave changes. LABORATORY DATA: Troponin was 0.77 yesterday afternoon and has subsequently come down some. It was 0.27 last night, 0.42 earlier this morning. AST and ALT are elevated at 69 and 110 respectively. Alkaline phosphatase is elevated. Albumin is only 3.2, creatinine 0.76. CBC was notable for polycythemia on admission, hematocrit 51.9, now normal at 45.6. White count was markedly elevated. IMPRESSION: A 77-year-old female with very severe lung disease, oxygen level was only in the 70s when she presented. Troponins are elevated, but seems most likely to be a type 2 infarct from the hypoxia. Likelihood of having underlying coronary disease is elevated; however, she is not particularly troubled by angina. We discussed the options of treating her conservatively, doing a nuclear stress test or going so far as doing a cardiac catheterization. My bias would be to treat her medically, considering the severity of her lung disease, but I did give her the option of cardiac catheterization. For now, she would like to try medical management. I am going to check a lipid profile, but currently can not go up on her statin because of the elevated liver tests. I am going to add Imdur 30 mg more every morning to her regimen. The amlodipine was held due to low blood pressure. I will put parameters on it, but I suspect she will not be able to receive this due to low blood pressure readings. Further therapy to be determined. MD ALAP Hill/lenard/holly , 04:56 PM , 05:04 PM
--- NOTE | 2018-09-25 22:37 | ECG ---
Date Performed: 09/25/2018 Time Performed: 07:36:01 PTAGE: 77 years EKG: Sinus rhythm WITH FIRST DEGREE AV BLOCK WITH OCCASIONAL VENTRICULAR PREMATURE COMPLEXES ANTEROSEPTAL MYOCARDIAL I NFARCTION , OF INDETERMINATE AGE MODERATE T-WAVE ABNORMALITY, CONSIDER LATERAL ISCHEMIA ABNORMAL ECG PREVIOUS TRACING : 09/24/2018 20.56 DOCTOR: Gurpreet Storey Interpretating Date/Time 09/25/2018 22:35:58
--- NOTE | 2018-09-25 23:14 | ECG ---
Date Performed: 09/24/2018 Time Performed: 20:56:31 PTAGE: 77 years EKG: Sinus rhythm WITH OCCASIONAL VENTRICULAR PREMATURE COMPLEXES ANTEROSEPTAL MYOCARDIAL INFARCTION , OF INDETERMINAT E AGE ABNORMAL ECG PREVIOUS TRACING : 09/24/2018 17.28 Since the previous tracing, no significant change noted DOCTOR: Gurpreet Storey Interpretating Date/Time 09/25/2018 23:12:05
--- NOTE | 2018-09-25 23:18 | ECG ---
Date Performed: 09/24/2018 Time Performed: 17:28:18 PTAGE: 77 years EKG: Sinus rhythm LOW QRS VOLTAGE IN EXTREMITY LEADS ANTEROSEPTAL MYOCARDIAL INFARCTION , OF INDETERMINATE AGE ABNORMA L ECG PREVIOUS TRACING : 09/24/2018 14.15 DOCTOR: Gurpreet Storey Interpretating Date/Time 09/25/2018 23:17:59
[2018-09-26] MEDS ORDERED: Digoxin Inj 500 MCG/2 ML Ampul IV.PUSH ONE ×2 (00:57→07:00)
[2018-09-26] MEDS: Chlorhexidine Gluconate 2% 1 Pack (2 Cloths) TOPICAL SCH (04:06)
[2018-09-26 04:51] LABS: Baso # (Auto) 0.1 th/mm3 (0.0-0.2); Baso % (Auto) 0.3 % (0.0-2.0); Eos % (Auto) 0.1 % (0.0-4.0); Hematocrit 45.1 % (35.0-46.0); Hemoglobin 14.2 gm/dL (11.6-15.3); Lymph # (Auto) 0.5 th/mm3 (1.0-4.8); Lymph % (Auto) 1.9 % (9.0-44.0); Mean Corpuscular HGB Conc 31.5 % (32.0-36.0); Mean Corpuscular Hemoglobin 23.3 pg (27.0-34.0); Mean Corpuscular Volume 73.9 fL (80.0-100.0); Mean Platelet Volume 8.2 fL (7.0-11.0); Mono # (Auto) 0.4 th/mm3 (0.0-0.9); Mono % (Auto) 1.6 % (0.0-8.0); Neut # (Auto) 24.7 th/mm3 (1.8-7.7); Neut % (Auto) 96.1 % (16.0-70.0); Platelet Count 521 th/mm3 (150-450); Red Cell Distribution Width 20.3 % (11.6-17.2); White Blood Count 25.7 th/mm3 (4.0-11.0)
[2018-09-26 05:09] LABS: Calcium 8.9 mg/dL (8.5-10.1); Carbon Dioxide 27.7 meq/L (21.0-32.0); Magnesium 2.1 mg/dL (1.5-2.5); Potassium 4.4 meq/L (3.5-5.1)
[2018-09-26 05:11] LABS: Chol/HDL Ratio 2.98 Ratio; HDL Cholesterol 47.9 mg/dL (40.0-60.0)
--- NOTE | 2018-09-26 07:22 | ECG ---
Date Performed: 09/24/2018 Time Performed: 14:15:36 PTAGE: 77 years EKG: Sinus rhythm WITH OCCASIONAL VENTRICULAR PREMATURE COMPLEXES ANTEROSEPTAL MYOCARDIAL INFARCTION , OF INDETERMINAT E AGE ABNORMAL ECG PREVIOUS TRACING : 09/24/2018 11.40 DOCTOR: Gurpreet Storey Interpretating Date/Time 09/26/2018 07:22:01
--- NOTE | 2018-09-26 07:36 | ECG ---
Date Performed: 09/24/2018 Time Performed: 11:40:49 PTAGE: 77 years EKG: Sinus rhythm WITH OCCASIONAL SUPRAVENTRICULAR PREMATURE COMPLEXES LOW QRS VOLTAGE IN LIMB LEADS POSSIBLE ANTERIOR MYOCARDIAL INFARCTION ABNORMAL ECG PREVIOUS TRACING : 09/24/2018 09.05 Compared to previous tracing, low QRS voltage in limb leads is new DOCTOR: Gurpreet Storey Interpretating Date/Time 09/26/2018 07:36:34
--- NOTE | 2018-09-26 07:41 | ECG ---
Date Performed: 09/24/2018 Time Performed: 09:05:16 PTAGE: 77 years EKG: Sinus rhythm ANTEROSEPTAL MYOCARDIAL INFARCTION ABNORMAL ECG PREVIOUS TRACING : 09/24/2018 06.26 Since the previous tracing, no significant change noted DOCTOR: Gurpreet Storey Interpretating Date/Time 09/26/2018 07:40:20
[2018-09-26] MEDS: Azithromycin Inj 500 MG in Sodium Chlor 0.9% Inj 250 ML IV.SIG SCH (08:28)
[2018-09-26] MEDS: Enoxaparin Inj 40 MG/0.4 ML Syringe SQ SCH (08:28)
[2018-09-26] MEDS: Piperacil/Tazo 4.5 GM Premix 4.5 GM/100 ML BAG IV.SIG SCH ×3 (08:28→17:57)
[2018-09-26] MEDS: Isosorbide Mononitrate 30 MG ER 24HR Tablet (Imdur) PO SCH (08:30)
[2018-09-26] MEDS: Senna/Docusate Sodium 8.6/50 MG Tablet PO SCH ×2 (08:30→20:28)
[2018-09-26] MEDS: amLODIPine 5 MG Tablet PO SCH (08:31)
[2018-09-26] MEDS: Umeclindinium 62.5 MCG/Vilanterol 25 MCG Inhaler INH SCH (08:33)
[2018-09-26] MEDS: Insulin NovoLIN Regular Correctional Sugar Inj SQ SCH ×4 (08:42→20:42)
--- NOTE | 2018-09-26 14:04 | P.PNIM ---
Subjective Interval history: Patient reports she is feeling better today. Still has shortness of breath with minimal activities. Physical Exam Vital signs: Vital Signs 09/25/18 15:00 09/25/18 16:00 09/25/18 17:00 Temperature 97.9 F Pulse Rate 86 77 89 Respiratory Rate 28 H 26 H 33 H Blood Pressure 130/73 128/70 133/95 H Pulse Oximetry 95 96 97 09/25/18 17:25 09/25/18 18:00 09/25/18 19:00 Temperature 98.7 F Pulse Rate 62 85 87 Respiratory Rate 16 31 H 23 Blood Pressure 131/60 Pulse Oximetry 95 35 L 09/25/18 19:23 09/25/18 19:37 09/25/18 20:00 Temperature 98.6 F Pulse Rate 98 H 96 H 101 H Respiratory Rate 34 H 18 31 H Blood Pressure 151/72 H Pulse Oximetry 99 96 99 09/25/18 20:20 09/25/18 21:00 09/25/18 21:20 Temperature Pulse Rate 101 H 119 H 117 H Respiratory Rate 34 H 30 H 18 Blood Pressure 136/70 130/65 Pulse Oximetry 100 99 96 09/25/18 22:00 09/25/18 22:20 09/25/18 23:00 Temperature Pulse Rate 110 H 109 H 110 H Respiratory Rate 21 17 16 Blood Pressure 111/61 Pulse Oximetry 96 98 98 09/25/18 23:01 09/25/18 23:20 09/26/18 00:00 Temperature 98.8 F Pulse Rate 109 H 102 H 103 H Respiratory Rate 16 18 26 H Blood Pressure 129/66 119/65 Pulse Oximetry 98 99 98 09/26/18 00:20 09/26/18 01:00 09/26/18 01:20 Temperature Pulse Rate 103 H 96 H 93 H Respiratory Rate 25 H 25 H 23 Blood Pressure 127/74 132/77 Pulse Oximetry 98 97 98 09/26/18 02:00 09/26/18 02:20 09/26/18 03:00 Temperature Pulse Rate 91 H 81 81 Respiratory Rate 23 21 31 H Blood Pressure 132/77 120/64 Pulse Oximetry 98 98 98 09/26/18 03:20 09/26/18 04:00 09/26/18 04:19 Temperature 98.7 F Pulse Rate 81 85 89 Respiratory Rate 30 H 34 H 28 H Blood Pressure 126/63 126/63 143/71 H Pulse Oximetry 98 98 99 09/26/18 05:00 09/26/18 05:20 09/26/18 06:00 Temperature Pulse Rate 77 78 76 Respiratory Rate 19 25 H 17 Blood Pressure 120/73 120/73 Pulse Oximetry 98 98 98 09/26/18 06:20 09/26/18 07:00 09/26/18 07:20 Temperature 98.2 F Pulse Rate 75 74 78 Respiratory Rate 31 H 22 45 H Blood Pressure 128/75 136/68 Pulse Oximetry 99 99 99 09/26/18 07:38 09/26/18 08:00 09/26/18 08:20 Temperature Pulse Rate 81 86 88 Respiratory Rate 16 25 H 32 H Blood Pressure 131/68 Pulse Oximetry 98 97 97 09/26/18 09:00 09/26/18 12:04 Temperature Pulse Rate 106 H 92 H Respiratory Rate 34 H 16 Blood Pressure Pulse Oximetry 94 L Intake & Output 09/25/18 09/26/18 09/26/18 18:59 06:59 18:59 Intake Total 500 / 500 340 / 340 Balance 500 / 500 340 / 340 Weight 75.4 kg Intake: IV 500 / 500 100 / 100 Precedex Inj 200 MCG In NS Inj 50 / 50 48 ML @ 0.2 MCG/KG/HR 3.25 mls/ hr IV.CONT TITRATE PRN Rx#: [id number] Azithromycin Inj 500 MG In NS 250 / 250 Inj 250 ML @ 250 mls/hr IV.SIG Q24H [facility] Rx#:[id number] Zosyn 4.5 GM Premix 4.5 gm In 200 / 200 100 / 100 100 ml @ 200 mls/hr IV.SIG Q6H [facility] Rx#:[id number] Oral 240 / 240 Other: # Voids 4 4 Date of Last Bowel Movement 09/24/18 09/24/18 # Bowel Movements 0 Narrative: GENERAL: Elderly female in no acute distress. CARDIOVASCULAR: Normal rate and regular rhythm without murmurs, gallops, or rubs. RESPIRATORY: Diminished breath sounds bilaterally, faint end expiratory wheezing. GASTROINTESTINAL: Abdomen soft, non-tender, non-distended. Normal active bowel sounds MUSCULOSKELETAL: Extremities without cyanosis, or edema. NEURO: Alert & Oriented x4 to person, place, time, situation. Moves all ext x4 PSYCH: Appropriate mood and affect. Results - Labs CBC & Chem 7: 09/26/18 04:06 09/26/18 04:06 Laboratory Results - last 24 hr 09/25/18 09/25/18 09/26/18 17:12 20:21 04:06 WBC 25.7 H RBC 6.10 H Hgb 14.2 Hct 45.1 MCV 73.9 L MCH 23.3 L MCHC 31.5 L RDW 20.3 H Plt Count 521 H MPV 8.2 Neut % (Auto) 96.1 H Lymph % (Auto) 1.9 L [place] % (Auto) 1.6 Eos % (Auto) 0.1 Baso % (Auto) 0.3 Neut # (Auto) 24.7 H Lymph # (Auto) 0.5 L [place] # (Auto) 0.4 Eos # (Auto) 0.0 Baso # (Auto) 0.1 WBC Differential . Differential Comment Auto diff final Sodium Potassium Chloride Carbon Dioxide Anion Gap BUN Creatinine Estimated GFR POC Glucose 188 H 216 H Random Glucose Calcium Magnesium Troponin I Triglycerides Cholesterol LDL Cholesterol, Calc HDL Cholesterol Cholesterol/HDL Ratio 09/26/18 09/26/18 09/26/18 04:06 07:35 08:35 WBC RBC Hgb Hct MCV MCH MCHC RDW Plt Count MPV Neut % (Auto) Lymph % (Auto) [place] % (Auto) Eos % (Auto) Baso % (Auto) Neut # (Auto) Lymph # (Auto) [place] # (Auto) Eos # (Auto) Baso # (Auto) WBC Differential Differential Comment Sodium 138 Potassium 4.4 Chloride 104 Carbon Dioxide 27.7 Anion Gap 6 BUN 15 Creatinine 0.65 Estimated GFR 89 POC Glucose 160 H Random Glucose 209 H Calcium 8.9 Magnesium 2.1 Troponin I 0.19 H D Triglycerides 112 Cholesterol 143 LDL Cholesterol, Calc 73 HDL Cholesterol 47.9 Cholesterol/HDL Ratio 2.98 Microbiology 09/24/18 06:11 Blood - Peripheral Aerobic Blood Culture - Preliminary No growth in 2 days 09/24/18 06:11 Blood - Peripheral Anaerobic Blood Culture - Preliminary No growth in 2 days 09/24/18 05:50 Blood - Peripheral Aerobic Blood Culture - Preliminary No growth in 2 days 09/24/18 05:50 Blood - Peripheral Anaerobic Blood Culture - Preliminary No growth in 2 days Assessment and Plan - Plan 77-year-old female admitted with acute COPD exacerbation, sepsis secondary to bilateral lower lobe pneumonia, acute hypoxemic and hypercapnic respiratory failure requiring BiPAP. Acute hypoxemic and hypercapnic respiratory failure secondary to COPD and pneumonia: - Respiratory status improved. Patient initially required BiPAP. - She is down to room air but still has significant shortness of breath with minimal activities. - Continue to treat pneumonia - Breathing treatment as needed - Switch from IV Solu-Medrol to oral prednisone. - Incentive spirometry -Home oxygen test. Community acquired pneumonia: given zosyn in ED, continue Zosyn/ azithromycin for ICU CAP, narrow based on culture results -Blood cultures- no growth at 1 day -UA negative -Urine legionella antigen negative -Leukocytosis probably worse due to steroids. Elevated troponin: -Trop peaked at 0.77, now trending down, no ST/T wave changes on EKG, likely Type 2 NSTEMI/ demand ischemia secondary to PNA and COPD exacerbation -Echo shows EF 50-55%, trace MR/TR, PAP 35 mmHg, with wall motion abnormalities noted -Patient takes 324 mg aspirin daily at home, continue -Continue home doses of amlodipine, nevibolol, losartan, atorvastatin -Appreciate input from cardiology. Agree with medical management per the patient preference. Imdur has been added. PROPHY: -PPI (patient is on protonix at home) -SCDs, lovenox Discharge Planning: Okay to transfer to floor. Anticipate discharge in 1-2 days based on clinical status. Home oxygen walk test. Will likely need home health.
[2018-09-26] MEDS ORDERED: Heparin Drip 25,000 UNIT/250 ML BAG IV.CONT PRN (15:42)
--- NOTE | 2018-09-26 15:58 | P.PNCA ---
Subjective Interval history: Patient has had 2 episodes of sharp chest pain right chest through to her back lasting about 15 minutes. Medications and Allergies Active Medications: Active Medications Acetaminophen (Tylenol) 650 mg PO Q6H PRN PRN Reason: PAIN 1-10 AND/OR FEVER >101F Last Admin: 09/24/18 12:48 Dose: 650 mg Al Hydroxide/Mg Hydroxide (Milk Of Dinah Liq) 30 ml PO Q12H PRN PRN Reason: Mild Constipation Albuterol (Albuterol Neb (Prn)) 2.5 mg NEB Q2HR NEB PRN PRN Reason: SHORTNESS OF BREATH/WHEEZING Albuterol (Duoneb Neb (Ruben)) 1 ampul NEB Q4HR NEB RUBEN Last Admin: 09/26/18 12:03 Dose: 1 ampul Amoxicillin/Clavulanate Potassium (Augmentin 875/125 Mg) 1 tab PO Q12HR RUBEN Aspirin (Aspirin Chew) 81 mg PO DAILY [facility] Atorvastatin Calcium (Lipitor) 10 mg PO DAILY [facility] Last Admin: 09/26/18 08:31 Dose: 10 mg Azithromycin (Zithromax) 500 mg PO DAILY [facility] Bisacodyl (Dulcolax Supp) 10 mg RECTAL DAILY PRN PRN Reason: SEVERE CONSITIPATION Chlorhexidine Gluconate (Chlorhexidine 2% Cloth) 3 pack TOPICAL DAILY@0400 RUBEN Stop: 09/30/18 03:59 Last Admin: 09/26/18 04:06 Dose: Not Given Chlorhexidine Gluconate (Chlorhexidine 2% Cloth) 3 pack TOPICAL DAILY@0400 PRN PRN Reason: Extra cloth needed Stop: 09/30/18 03:59 Dextrose (D50w Vial) 50 ml IV.PUSH UNSCH PRN PRN Reason: PER HYPOGLYCEMIA PROTOCOL Diltiazem HCl (Cardizem) 30 mg PO QID [facility] Fluticasone Propionate (Flonase Nasal [place]) 2 spray EACH NARE DAILY [facility] Last Admin: 09/26/18 08:33 Dose: 2 spray Glucagon (Glucagon Inj) 1 mg OTHER PRN PRN PRN Reason: for Hypoglycemia Protocol Sodium Chloride (Ns Inj) 1,000 mls @ 0 mls/hr IV.SIG .Q0M RUBEN Sodium Chloride (Ns Inj) 1,000 mls @ 0 mls/hr IV.SIG .Q0M RUBEN Sodium Chloride (Ns Inj) 100 mls @ 0 mls/hr IV.SIG .Q0M RUBEN Magnesium Sulfate 4 gm/ Sodium (Chloride) 100 mls @ 50 mls/hr IV.SIG UNSCH PRN PRN Reason: For Magnesium 0.9 - 1.1 mg/dL Potassium Chloride (Kcl 40 Meq Premix Inj) 40 meq in 100 mls @ 25 mls/hr IV.SIG Q2H PRN PRN Reason: For Potassium 2.8 - 3.2 mEq/L Potassium Chloride (Kcl 20 Meq Premix Inj) 20 meq in 100 mls @ 50 mls/hr IV.SIG Q2H PRN PRN Reason: For Potassium 3.3 - 3.5 mEq/L Potassium Chloride (Kcl 20 Meq Premix Inj) 20 meq in 100 mls @ 50 mls/hr IV.SIG Q2H PRN PRN Reason: For Potassium 2.8 - 3.2 mEq/L Potassium Phosphate 30 mmol/ (Sodium Chloride) 260 mls @ 42 mls/hr IV.SIG UNSCH PRN PRN Reason: SEE LABEL COMMENTS Sodium Phosphate 30 mmol/ (Sodium Chloride) 260 mls @ 42 mls/hr IV.SIG UNSCH PRN PRN Reason: For Phosphorus < 2.5 mg/dL Magnesium Sulfate 2 gm/ Sodium (Chloride) 100 mls @ 50 mls/hr IV.SIG UNSCH PRN PRN Reason: For Magnesium 1.2 - 1.6 mg/dL Potassium Chloride (Kcl 40 Meq Premix Inj) 40 meq in 100 mls @ 25 mls/hr IV.SIG UNSCH PRN PRN Reason: For Potassium 3.3 - 3.5 mEq/L Heparin Sodium/Dextrose (Heparin/D5w 25,000 U/250 Ml) 25,000 unit in 250 mls @ 0 mls/hr IV.CONT TITRATE PRN; Protocol PRN Reason: Per Protocol Insulin Human Regular (Novolin R [employer]al Sugar Inj) 0 units SQ ACHS RUBEN; Protocol Last Admin: 09/26/18 08:42 Dose: 1 units Ipratropium Magazine (Atrovent Neb) 0.5 mg NEB Q2HR NEB PRN PRN Reason: WHEEZING Isosorbide Mononitrate (Imdur) 30 mg PO DAILY@0700 RUBEN Last Admin: 09/26/18 08:30 Dose: 30 mg Lactulose (Lactulose Liq) 30 ml PO DAILY PRN PRN Reason: SEVERE CONSITIPATION Losartan Potassium (Cozaar) 50 mg PO BID [facility] Last Admin: 09/26/18 08:31 Dose: 50 mg Magnesium Oxide (Mag-Ox) 800 mg PO UNSCH PRN PRN Reason: For Magnesium 1.2 - 1.6 mg/dL Melatonin (Melatonin) 5 mg PO HS PRN PRN Reason: INSOMNIA Last Admin: 09/25/18 20:15 Dose: 5 mg Nebivolol (Bystolic) 5 mg PO DAILY [facility] Last Admin: 09/26/18 08:30 Dose: 5 mg Nitroglycerin (Nitrostat Sl) 0.4 mg SL Q5M PRN PRN Reason: CHEST PAIN Ondansetron HCl (Zofran Inj) 4 mg IV.PUSH Q6H PRN PRN Reason: NAUSEA OR VOMITING Last Admin: 09/24/18 12:50 Dose: 4 mg Pantoprazole Sodium (Protonix) 40 mg PO DAILY [facility] Last Admin: 09/26/18 08:30 Dose: 40 mg Pt Own Med : ( (Letrozole 2.5 Mg )) 0 each PO DAILY [facility] Potassium Bicarb/Potassium Chloride (K-Lyte Cl Eff) 50 meq PO UNSCH PRN PRN Reason: For Potassium 3.3 - 3.5 mEq/L Potassium Phosphate (K-Phos Original) 2,000 mg PO Q4H PRN PRN Reason: Phosphorus Less Than 2.5 mg/dL Potassium Phosphate (K-Phos Original) 2,000 mg PO UNSCH PRN PRN Reason: SEE LABEL COMMENTS Prednisone (Deltasone) 20 mg PO BID [facility] Senna/Docusate Sodium (Ita-Colace) 1 tab PO BID [facility] Last Admin: 09/26/18 08:30 Dose: 1 tab Sennosides (Senokot) 17.2 mg PO Q12H PRN PRN Reason: Moderate Constipation Sodium Chloride (Ns Flush) 2 ml IV.FLUSH BID [facility] Last Admin: 09/26/18 08:32 Dose: Not Given Sodium Chloride (Ns Flush) 2 ml IV.FLUSH PRN PRN PRN Reason: FLUSH AFTER USING IV ACCESS Umeclidinium/Vilanterol (Anoro-Ellipta 62.5/25 Mcg Inh) 1 inhalation INH Q24H [facility] Last Admin: 09/26/18 08:33 Dose: 1 inhalation Allergies Allergy/AdvReac Type Severity Reaction Status Date / Time No Known Allergies Allergy Uncoded 05/30/15 10:00 Home Medications Medication Instructions Recorded Confirmed Type amlodipine 2.5 mg PO DAILY 09/24/18 09/24/18 History aspirin 325 mg PO DAILY 09/24/18 09/24/18 History atorvastatin 10 mg PO DAILY 09/24/18 09/24/18 History calcium carbonate-vitamin D3 1 tab PO QAM 09/24/18 09/24/18 History [Calcium 600 + D(3)] fluticasone 1 inh INHALATION Q12H 09/24/18 09/24/18 History letrozole 2.5 mg PO DAILY 09/24/18 09/24/18 History losartan 50 mg PO BID 09/24/18 09/24/18 History magnesium oxide 40 mg PO DAILY 09/24/18 09/24/18 History nebivolol [Bystolic] 5 mg PO DAILY 09/24/18 09/24/18 History nitroglycerin 0.4 mg SUBLINGUAL Q5-15M PRN 09/24/18 09/24/18 History omega [id number] oil [Fish Oil] 1,200 mg PO DAILY 09/24/18 09/24/18 History pantoprazole [Protonix] 40 mg PO DAILY 09/24/18 09/24/18 History polyethylene glycol 3350 [Miralax] 17 g PO DAILY PRN 09/24/18 09/24/18 History umeclidinium-vilanterol [Anoro 1 inh INHALATION Q24H 09/24/18 09/24/18 History Ellipta] wheat dextrin [Benefiber Sugar 1 packet PO DAILY 09/24/18 09/24/18 History Free (dextrin)] Physical Exam Vital signs: Vital Signs 09/25/18 16:00 09/25/18 17:00 09/25/18 17:25 Temperature 97.9 F Pulse Rate 77 89 62 Respiratory Rate 26 H 33 H 16 Blood Pressure 128/70 133/95 H Pulse Oximetry 96 97 09/25/18 18:00 09/25/18 19:00 09/25/18 19:23 Temperature 98.7 F Pulse Rate 85 87 98 H Respiratory Rate 31 H 23 34 H Blood Pressure 131/60 151/72 H Pulse Oximetry 95 35 L 99 09/25/18 19:37 09/25/18 20:00 09/25/18 20:20 Temperature 98.6 F Pulse Rate 96 H 101 H 101 H Respiratory Rate 18 31 H 34 H Blood Pressure 136/70 Pulse Oximetry 96 99 100 09/25/18 21:00 09/25/18 21:20 09/25/18 22:00 Temperature Pulse Rate 119 H 117 H 110 H Respiratory Rate 30 H 18 21 Blood Pressure 130/65 Pulse Oximetry 99 96 96 09/25/18 22:20 09/25/18 23:00 09/25/18 23:01 Temperature Pulse Rate 109 H 110 H 109 H Respiratory Rate 17 16 16 Blood Pressure 111/61 129/66 Pulse Oximetry 98 98 98 09/25/18 23:20 09/26/18 00:00 09/26/18 00:20 Temperature 98.8 F Pulse Rate 102 H 103 H 103 H Respiratory Rate 18 26 H 25 H Blood Pressure 119/65 127/74 Pulse Oximetry 99 98 98 09/26/18 01:00 09/26/18 01:20 09/26/18 02:00 Temperature Pulse Rate 96 H 93 H 91 H Respiratory Rate 25 H 23 23 Blood Pressure 132/77 132/77 Pulse Oximetry 97 98 98 09/26/18 02:20 09/26/18 03:00 09/26/18 03:20 Temperature Pulse Rate 81 81 81 Respiratory Rate 21 31 H 30 H Blood Pressure 120/64 126/63 Pulse Oximetry 98 98 98 09/26/18 04:00 09/26/18 04:19 09/26/18 05:00 Temperature 98.7 F Pulse Rate 85 89 77 Respiratory Rate 34 H 28 H 19 Blood Pressure 126/63 143/71 H 120/73 Pulse Oximetry 98 99 98 09/26/18 05:20 09/26/18 06:00 09/26/18 06:20 Temperature Pulse Rate 78 76 75 Respiratory Rate 25 H 17 31 H Blood Pressure 120/73 128/75 Pulse Oximetry 98 98 99 09/26/18 07:00 09/26/18 07:20 09/26/18 07:38 Temperature 98.2 F Pulse Rate 74 78 81 Respiratory Rate 22 45 H 16 Blood Pressure 136/68 Pulse Oximetry 99 99 98 09/26/18 08:00 09/26/18 08:20 09/26/18 09:00 Temperature Pulse Rate 86 88 106 H Respiratory Rate 25 H 32 H 34 H Blood Pressure 131/68 Pulse Oximetry 97 97 94 L 09/26/18 12:04 Temperature Pulse Rate 92 H Respiratory Rate 16 Blood Pressure Pulse Oximetry Intake & Output 09/25/18 09/26/18 09/26/18 18:59 06:59 18:59 Intake Total 500 / 500 340 / 340 Balance 500 / 500 340 / 340 Weight 75.4 kg Intake: IV 500 / 500 100 / 100 Precedex Inj 200 MCG In NS Inj 50 / 50 48 ML @ 0.2 MCG/KG/HR 3.25 mls/ hr IV.CONT TITRATE PRN Rx#: [id number] Azithromycin Inj 500 MG In NS 250 / 250 Inj 250 ML @ 250 mls/hr IV.SIG Q24H RUBEN Rx#:[id number] Zosyn 4.5 GM Premix 4.5 gm In 200 / 200 100 / 100 100 ml @ 200 mls/hr IV.SIG Q6H RUBEN Rx#:[id number] Oral 240 / 240 Other: # Voids 4 4 Date of Last Bowel Movement 09/24/18 09/24/18 # Bowel Movements 0 Narrative: Alert, NAD Chest: diminished BS CV S1S2 irr irr Tele: new onset AF EKG's: new AF. New T wave inversion c/w LAD ischemia Ext no edema. Good femoral and radial pulses Results 09/26/18 04:06 09/26/18 04:06 Cardiac Enzymes 09/24/18 09/24/18 09/24/18 Range/Units 15:24 19:12 22:06 AST (15-37) U/L Troponin I 0.77 H* D 0.54 H D 0.27 H D (0.02-0.05) ng/mL 09/25/18 09/26/18 Range/Units 02:57 07:35 AST 69 H (15-37) U/L Troponin I 0.42 H D 0.19 H D (0.02-0.05) ng/mL Lipids 09/26/18 Range/Units 04:06 Triglycerides 112 (42-150) mg/dL Cholesterol 143 (120-200) mg/dL HDL Cholesterol 47.9 (40.0-60.0) mg/dL Cholesterol/HDL Ratio 2.98 Ratio CBC 09/25/18 09/26/18 Range/Units 02:57 04:06 WBC 20.5 H 25.7 H (4.0-11.0) th/mm3 RBC 6.12 H 6.10 H (4.00-5.30) mil/mm3 Hgb 14.4 14.2 (11.6-15.3) gm/dL Hct 45.6 45.1 (35.0-46.0) % Plt Count 456 H D 521 H (150-450) th/mm3 Neut # (Auto) 19.4 H 24.7 H (1.8-7.7) th/mm3 Lymph # (Auto) 0.5 L 0.5 L (1.0-4.8) th/mm3 [place]verse # (Auto) 0.5 0.4 (0.0-0.9) th/mm3 Eos # (Auto) 0.0 0.0 (0.0-0.4) th/mm3 Baso # (Auto) 0.0 0.1 (0.0-0.2) th/mm3 Comprehensive Metabolic Panel 09/25/18 09/26/18 Range/Units 02:57 04:06 Sodium 135 L 138 (136-145) meq/L Potassium 4.0 4.4 (3.5-5.1) meq/L Chloride 101 104 (98-107) meq/L Carbon Dioxide 24.5 27.7 (21.0-32.0) meq/L BUN 10 15 (7-18) mg/dL Creatinine 0.76 0.65 (0.50-1.00) mg/dL Calcium 8.5 8.9 (8.5-10.1) mg/dL AST 69 H (15-37) U/L ALT 110 H (10-53) U/L Alkaline Phosphatase 130 H (45-117) U/L Total Protein 6.3 L D (6.4-8.2) g/dL Albumin 3.2 L (3.4-5.0) g/dL Intake and Output 09/26/18 09/26/18 09/26/18 06:59 14:59 22:59 Intake Total 340 / 340 Balance 340 / 340 Intake: IV 100 / 100 Zosyn 4.5 GM Premix 4.5 gm In 100 / 100 100 ml @ 200 mls/hr IV.SIG Q6H RUBEN Rx#:[id number] Oral 240 / 240 Other: # Voids 4 Date of Last Bowel Movement 09/24/18 # Bowel Movements 0 Weight 75.4 kg Assessment and Plan - Assessment (1) Non-ST elevated myocardial infarction (non-STEMI) Code(s): I21.4 - Non-ST elevation (NSTEMI) myocardial infarction Status: Acute (2) Atrial fibrillation Code(s): I48.91 - Unspecified atrial fibrillation Status: Acute (3) Acute exacerbation of chronic obstructive pulmonary disease (COPD) Code(s): J44.1 - Chronic obstructive pulmonary disease with (acute) exacerbation Status: Acute - Plan 09/26/2018: New afib with mildly increased rate started last night. Also new chest pain - has atypical features but there are new TWI anterior leads suggesting LAD ischemia/ NON-STEMI. Currently pain free. I am changing her lovenox to IV heparin. Add PO diltiazem for rate control. NPO after MN for possible heart cath tomorrow. Cancel transfer.
[2018-09-26] MEDS: dilTIAZem 30 MG Tablet PO SCH ×2 (17:10→20:33)
[2018-09-26] MEDS: MethylPREDNISolone Sod Succinate Inj 40 MG/ML Vial IV.PUSH SCH ×2 (17:57→17:58)
--- NOTE | 2018-09-26 18:31 | ECG ---
Date Performed: 09/26/2018 Time Performed: 00:36:12 PTAGE: 77 years EKG: Atrial fibrillation Possible anterior infarct - age undetermined Inferior/lateral ST-T [place] ges may be due to myocardial ischemia Low QRS voltages in limb leads Compared to previous tracing, th e atrial fibrillation is new, and the anterior T wave abnormalities are more prominent and are sugges tive of a subendocardial infarct. Abnormal ECG NO PREVIOUS TRACING DOCTOR: Ruel Street Interpretating Date/Time 09/26/2018 18:29:37
[2018-09-26] MEDS: predniSONE 20 MG Tablet PO SCH (20:33)
[2018-09-26] MEDS: Amoxicillin/Clavulanate 875/125 MG Tablet PO SCH (20:33)
[2018-09-27 05:06] LABS: Hematocrit 45.4 % (35.0-46.0); Hemoglobin 14.3 gm/dL (11.6-15.3); Mean Corpuscular HGB Conc 31.6 % (32.0-36.0); Mean Corpuscular Hemoglobin 23.4 pg (27.0-34.0); Mean Corpuscular Volume 74.3 fL (80.0-100.0); Mean Platelet Volume 8.3 fL (7.0-11.0); Platelet Count 565 th/mm3 (150-450); Red Blood Count 6.11 mil/mm3 (4.00-5.30); Red Cell Distribution Width 19.9 % (11.6-17.2); White Blood Count 24.6 th/mm3 (4.0-11.0)
[2018-09-27 05:27] LABS: Calcium 8.7 mg/dL (8.5-10.1); Carbon Dioxide 28.1 meq/L (21.0-32.0)
[2018-09-27 05:41] LABS: Digoxin 0.7 ng/mL (0.8-2.0); Troponin I 0.09 ng/mL (0.02-0.05)
[2018-09-27] MEDS: Chlorhexidine Gluconate 2% 1 Pack (2 Cloths) TOPICAL SCH (05:47)
[2018-09-27] MEDS: Isosorbide Mononitrate 30 MG ER 24HR Tablet (Imdur) PO SCH (06:16)
[2018-09-27] MEDS ORDERED: Nitroglycerin Drip Premix 50 MG/250 ML BOTTLE IV.CONT PRN (08:15)
[2018-09-27] MEDS ORDERED: Nitroglycerin Drip Premix 50 MG/250 ML BOTTLE ONE (08:16)
[2018-09-27] MEDS ORDERED: diazePAM 5 MG Tablet PO ONE (08:25)
[2018-09-27] MEDS ORDERED: Heparin/NS PF Inj 1,000 ML ONE (09:03)
[2018-09-27] MEDS ORDERED: Heparin/NS PF Inj 500 ML ONE (09:04)
[2018-09-27] MEDS ORDERED: fentaNYL Citrate Inj 100 MCG/2 ML Ampul ONE (09:04)
[2018-09-27] MEDS: Insulin NovoLIN Regular Correctional Sugar Inj SQ SCH ×4 (09:36→21:30)
[2018-09-27] MEDS ORDERED: Iohexol 350 MG/ML 50 ML Vial (for Cath Lab) IVCONTRAST ONE (09:40)
[2018-09-27] MEDS ORDERED: Iohexol 350 MG/ML 100 ML Vial (for Cath Lab) IVCONTRAST ONE (09:40)
[2018-09-27] MEDS ORDERED: Lidocaine PF 1% Inj 30 ML Vial ONE (09:49)
--- NOTE | 2018-09-27 11:08 | CATHPROC ---
[employer] HIS Report Study Information Study Number Admission Scheduled Start Study Start [id number] Sep 24 2018 6:38AM 09/27/2018 Sep 27 2018 9:05AM [place] [facility] Cardiac Catheterization Admit Source Facility Department Emergency department [facility] - [facility] Physician and Clinical Staff Initial Ruel Torres Turbogenerator Operator Deana Cedillo RN Recorder Elham Proctor,RT(R) Scrub Kat Ugalde,SAVANNAH TECH2 Procedures Performed Procedure Location (Site) Vessel Name Angiogram LV LV Ventricle Coronary Angiograms LCA Left Coronary Coronary Angiograms RCA Right Coronary L Heart Cath Wire insertion Fem Art (right) Femoral Art Equipment Time Software Sales Description Size Mfg Part Number Used/Scraped TRANSDUCER, TRUWAVE [id number] 09:10 SCHROEDER LUX * Used W/STOCKCOCK *[id number] INTRODUCER SET, [id number] 09:11 [employer] FR 4 Used MICROPUNCTURE STIFF 77 [phone] *[id number] [id number] *[id number] [phone] *[id number] [id number] *[id number] [id number] *[id number] PIGTAIL ANG. 145 INFINITI 534-652S CATHETER *[id number] 10:57 DAIG/[employer]. [employer]ICAL ANGIOSEAL, FR6 VIP FR 6 Used *[id number] 09:10 [employer] BLANKET,WARM AIR CCL * Used *[id number] 09:10 [employer] PACK, CCL CUSTOM * Used *[id number] 09:10 [employer] PACER PEN, SKIN DUAL W/ RULER * Used *[id number] 09:10 [employer] MEDICAL SHEATH, FR6.5 PRELUDE 11CM FR 6.5 038ACT Used *[id number] 09:10 [employer] MEDICAL WIRE, 3MMJ .035 180CM 180CM Used *[id number] 09:10 [employer] MANIFOLD, 4 PORT * Used *[id number] 10:05 [employer] TUBING, HIGH PRESSURE 48" 48" Used *[id number] 09:10 [employer] OMNIPAQUE, 350 MG, 150ML 150ML [id number] Used 10:01 [employer] OMNIPAQUE, 350 MG, 50ML 50ML [id number] Used [id number] 10:31 [employer] PRIME WIRE, VERRATA 185CM 185CM Used *[id number] Equipment Model, Serial, Lot Number and Expiration Data Description Model Number Serial Number Lot Number Expiration Date SIVA CLINE [id number] 04-03-2019 PRIME WIRE, VERRATA 185CM [id number] 07-04-2021 History: Current Medications Medication Dosage/Unit Route Frequency Last Date/Time Taken Statins (any) CARDIZEM ASA History: Allergies Allergy Reaction No Known Allergies History: Risk Factors Family History of Hypertension Dyslipidemia Previous OH Previous Heart Failure Premature CAD Yes No Yes Yes No Prior Valve Prior PCI Prior CABG Surgery No No No Cerebrovascular Peripheral Artery Chronic Lung On Dialysis Diabetes Disease Disease Disease No No No Yes Yes History: Symptoms/Diagnosis Selection Items SOB History: Stress Tests Stress or Imaging Studies Performed No History: Other Current Smoker Method Quit Packs a Day Years Used Pack Years No Cigarettes 40 Years Ago 1 35 35 Labs Hgb (g/dl) Hct (%) WBC (l/cumm) 11.60-17.00 35.00-51.00 4.00-11.00 14.3 45.4 24.6 Glucose (mg/dl) BUN (mg/dl) Creatinine (mg/dl) BUN:Creatinine (1:x) 74.00-106.00 7.00-18.00 0.50-1.30 10.00-20.00 193 13 0.6 21.7 Troponin I (ng/ml) CPK (u/l) 0.02-0.05 26.00-308.00 0.09 27 Medication Medication Total Dose (Bolus/Oral) Medication Total Dosage/Unit 1% XYLOCAINE 20 mL ANGIOMAX BOLUS 11 mL VERSED 2 mg Medications (Bolus/Oral) Medication Time Given Dosage/Unit Administered By Reason 09/27/2018 10:07:25 VERSED 1 mg Deana Cedillo AM 1 mg VERSED given in lab by Deana Cedillo RN in Left Forearm via Peripheral IV. Ordered by Ruel Street. 09/27/2018 10:11:09 VERSED 1 mg Deana Cedillo AM 1 mg VERSED given in lab by Deana Cedillo RN in Left Forearm via Peripheral IV. Ordered by Ruel Street. 09/27/2018 10:13:31 1% XYLOCAINE [address] AM 20 mL 1% XYLOCAINE given in lab by Ruel Street in Right Groin via Subcutaneous. 09/27/2018 10:31:08 ANGIOMAX BOLUS 11 mL Deana Cedillo AM 11 mL ANGIOMAX BOLUS given in lab by Deana Cedillo RN in Left Forearm via Peripheral IV. Ordered by Ruel Street. Medication (Drip) Medication Time Given Dosage/Unit Concentration/Unit Diluent (ml) Solution 09/27/2018 10:32:11 ANGIOMAX DRIP 1.752 mg/kg/hr 250 mg 50 NaCl .9 AM 1.752 mg/kg/hr ANGIOMAX DRIP given in lab by Deana Cedillo RN in Right Forearm via Peripheral IV. P ump/Drip Flow = 26.6 ml/hr using NaCl .9 with a concentration of 250 mg in 50 ml. Ordered by Ruel [address]. ANGIOMAX DRIP 09/27/2018 10:53:20 0 units/hr 0 STOPPED AM 0 units/hr ANGIOMAX DRIP STOPPED given in lab by Deana Cedillo RN in Right Forearm via Peripheral I V. Pump/Drip Flow = 26.6 ml/hr using [Solution Name]. Ordered by Ruel Street. HEPARIN DRIP 09/27/2018 9:45:09 AM 1100 units/hr 74704 units 250 D5W Patient arrived on 1100 units/hr HEPARIN DRIP in Left Forearm via Peripheral IV. Pump/Drip Flow = 11 ml/hr [place] D5[place] [address] units in 250 ml. 09/27/2018 10:53:21 HEPARIN DRIP STOPPED 1100 units/hr 0 AM 1100 units/hr HEPARIN DRIP STOPPED given in lab by Deana Cedillo RN in Left Forearm via Peripheral IV. Pump/Drip Flow = 0 ml/hr using [Solution Name]. Ordered by Ruel Street. IV Solutions 09/27/2018 9:48:55 AM 50 mL (IV) NaCl .9 IV Solutions given in lab by Deana Cedillo RN in Right Forearm via Peripheral IV. Pump/Drip Flow us ing NaCl .9. NITROGLYCERIN DRIP 09/27/2018 9:45:10 AM 3 mcg/min 50 mg 250 D5W Patient arrived on 3 mcg/min NITROGLYCERIN DRIP in Left Forearm via Peripheral IV. Pump/Drip Flow = 0 .9 ml/hr using D5W with a concentration of 50 mg in 250 ml. NITROGLYCERN DRIP 09/27/2018 10:53:23 0 units/hr 0 STOPPED AM 0 units/hr NITROGLYCERN DRIP STOPPED given in lab by Deana Cedillo RN in Left Forearm via Periphera l IV. Pump/Drip Flow = 0.9 ml/hr using [Solution Name]. Ordered by Ruel Street. Initial Case Assessment Cardiovascular Chest Pain 0 Edema Present Skin color Skin None Normal Warm Dry Circulatory - Right Pulses Dorsalis Pedis Femoral 1 1 Scale (0,1,2,3,4,d) Circulatory - Left Pulses Dorsalis Pedis Femoral 1 2 Scale (0,1,2,3,4,d) Neurological State Oriented to time-place- Alert Moves all extremities person Respiration - General O2 (lpm) 3 Chronological Log Time Study Chronological Log 9:40:46 Patient arrived via Bed. 9:40:51 Patient Name, D.O.B, / Armband Verified By R.N. Vitals capture started with the following parameters, Patient=Adult, Interval=5 min, Initial P wssfbot=280 mmHg, 9:43:59 Deflation Rate=5 mmHg, Cuff placed on Left Arm 9:44:32 RRUX=606/86 mmhg 9:44:43 Consent signed by the physician and the patient and verified by the [facility] staff. 9:44:56 Presedation assessment performed by Tavern Keeper RN. 9:44:57 Patient has been NPO for More than 6Hrs. 9:44:57 Skin Breakdown- none per pt 9:45:03 Patient Warmer Placed on the Table. 9:45:04 Dara Prominences Protected 9:45:05 A # 20 IV was noted in the Forearm (right). Grade = 0 9:45:08 A # 20 IV was noted in the Forearm (left). Grade = 0 Patient arrived on 1100 units/hr HEPARIN DRIP in Left Forearm via Peripheral IV. Pump/Drip Terrance w = 11 ml/hr using 9:45:09 D5[place] [address] units in 250 ml. Patient arrived on 3 mcg/min NITROGLYCERIN DRIP in Left Forearm via Peripheral IV. Pump/Drip F low = 0.9 ml/hr 9:45:10 using D5W with a concentration of 50 mg in 250 ml. 9:45:12 History and physical on the chart or being dictated. Assessment: Initial Case, Chest Pain=0, Edema=None, Color=Normal, Skin = Warm, Dry Right Pulses: Balbir Ped=1, Femoral=1 9:45:16 Left Pulses: Balbir Ped=1, Femoral=2 Neurological: State=Alert, Ox3, WADDELL Respiration: O2=3 lpm 9:48:55 IV Solutions given in lab by Deana Cedillo RN in Right Forearm via Peripheral IV. Pump/Dri p Flow using NaCl .9. 9:49:21 Bilateral groins prepped with 2% chlorhexidine, and draped after a 3 minute waiting time. 9:50:00 EO=090 bpm, UXBZ=959/87 mmhg, SpO2=94.0 %, Resp=14 B/min 9:53:39 Reference ECG taken 9:54:34 MA=672 bpm, KGPO=913/75 mmhg, SpO2=95 %, Resp=14 B/min 9:54:52 Pressure channel 1 zeroed. 9:56:08 paged 9:59:33 HR=99 bpm, CYYS=178/86 mmhg, SpO2=95 %, Resp=19 B/min 10:03:03 MD arrived. 10:04:34 JD=404 bpm, RDUR=461/78 mmhg, SpO2=95 %, Resp=17 B/min 10:07:25 1 mg VERSED given in lab by Deana Cedillo RN in Left Forearm via Peripheral IV. Ordered Ruel Cleaning. 10:09:35 HU=856 bpm, YBTL=609/84 mmhg, SpO2=95.0 %, Resp=20 B/min Time Out. Correct patient, correct procedure, correct physician, labs, allergies, and equipment verified with lift slab operator 10:09:59 team present. Fire risk assesment completed (see hard stop sheet for coding). Time Out Conc urred by and individual staff in procedure. 10:11:09 1 mg VERSED given in lab by Deana Cedillo, MARIA E in Left Forearm via Peripheral IV. Ordered Ruel Cleaning. 10:11:26 Case Start 10:13:31 20 mL 1% XYLOCAINE given in lab by Ruel Street in Right Groin via Subcutaneous. 10:14:34 CJ=540 bpm, APDK=548/87 mmhg, SpO2=95.0 %, Resp=24 B/min 10:14:49 Access site was Right Femoral Artery. A INTRODUCER SET, MICROPUNCTURE STIFF FR 4 was advanced into the Fem Art (right) using the Perc utaneous 10:14:58 technique. A SHEATH, FR6.5 PRELUDE 11CM FR 6.5 was exchanged in the Fem Art (right). This was necessary in order to 10:15:04 accomodate a larger catheter. 10:16:28 Activated Clotting Time Drawn A PIGTAIL ANG. 145 INFINITI CATHETER FR 6 was advanced over a wire. OMNIPAQUE, 350 MG, 150ML 15 0ML was 10:17:04 used for injections. Recorded Pressure: LV, HR=96, Condition=Condition 1 10:18:42 (Left Ventricle) LV 123/11/14 10:18:50 ACT (Normal Range 90-180) = 127 10:19:10 The LV was injected at 8 cc/sec for a total of 20. OMNIPAQUE, 350 MG, 50ML 50ML used. Recorded Pressure: LV, Ao, NQ=534, Condition=Condition 1 10:20:06 (Left Ventricle) LV 111/10/14, (Aorta) Ao 123/76/96 10:20:08 HR=96 bpm, LOYA=441/75 mmhg, SpO2=95.0 %, Resp=19 B/min After removing the current catheter a JL 5.0 INFINITI CATHETER FR 6 was advanced over a WIRE, 3 MMJ .035 180CM 10:20:24 180CM. Recorded Pressure: Ao, HR=95, Condition=Condition 1 10:22:17 (Aorta) Ao 118/71/92 10:22:41 The LCA was injected and visualized at various angles. OMNIPAQUE, 350 MG, 150ML 150ML used . 10:24:36 JA=733 bpm, QXRZ=480/78 mmhg, SpO2=96.0 %, Resp=20 B/min After removing the current catheter a 3DRC INFINITI CATHETER FR 6 was advanced over a WIRE, 3MM J .035 180CM 10:24:52 180CM. 10:27:37 The RCA was injected and visualized at various angles. OMNIPAQUE, 350 MG, 150ML 150ML used . 10:29:35 KY=525 bpm, RZDD=247/81 mmhg, SpO2=96.0 %, Resp=22 B/min 10:30:49 Catheter was removed 11 mL ANGIOMAX BOLUS given in lab by Deana Cedillo RN in Left Forearm via Peripheral IV. Orde red by Jad, 10:31:08 Lipscomb. 1.752 mg/kg/hr ANGIOMAX DRIP given in lab by Deana Cedillo RN in Right Forearm via Peripheral IV. Pump/Drip 10:32:11 Flow = 26.6 ml/hr using NaCl .9 with a concentration of 250 mg in [address]. 10:33:54 A AL 1 GUIDE CATHETER FR 6 was advanced over a wire. OMNIPAQUE, 350 MG, 150ML 150ML was use d for injections. 10:34:34 AL=698 bpm, YNAV=697/88 mmhg, SpO2=95.0 %, Resp=23 B/min After removing the current catheter a AL .75 GUIDE CATHETER FR 6 was advanced over a WIRE, 3MMJ .035 180CM 10:35:49 180CM. 10:39:34 YP=710 bpm, YYRC=326/94 mmhg, SpO2=95.0 %, Resp=20 B/min 10:41:44 A PRIME WIRE, VERRATA 185CM 185CM was inserted via Fem Art (right). 10:43:51 Flow Wire was was placed in the RCA Prox. The IFR measures 1 Percent. 10:44:39 WL=195 bpm, SVNN=736/83 mmhg, SpO2=95.0 %, Resp=20 B/min 10:47:08 Flow Wire was was placed in the RCA Dist. The IFR measures 1.02 Percent. 10:48:44 Pressure channel 1 zeroed. 10:49:38 HR=90 bpm, WEBP=356/87 mmhg, SpO2=94.0 %, Resp=24 B/min 10:50:11 Wire removed After removing the current catheter a 3DRC INFINITI CATHETER FR 6 was advanced over a WIRE, 3MM J .035 180CM 10:52:09 180CM. 0 units/hr ANGIOMAX DRIP STOPPED given in lab by Deana Cedillo RN in Right Forearm via Periph eral IV. Pump/Drip 10:53:20 Flow = 26.6 ml/hr using [Solution Name]. Ordered by Ruel Street. 1100 units/hr HEPARIN DRIP STOPPED given in lab by Deana Cedillo, RN in Left Forearm via Perip heral IV. Pump/Drip 10:53:21 Flow = 0 ml/hr using [Solution Name]. Ordered by Ruel Street. 0 units/hr NITROGLYCERN DRIP STOPPED given in lab by Deana Cedillo, RN in Left Forearm via Per ipheral IV. 10:53:23 Pump/Drip Flow = 0.9 ml/hr using [Solution Name]. Ordered by Ruel Street. 10:54:41 KC=648 bpm, RBMC=638/75 mmhg, SpO2=94.0 %, Resp=11 B/min 10:56:38 Catheter was removed 10:57:40 An injection in the Fem Art (right) was made through the SHEATH, FR6.5 PRELUDE 11CM FR 6.5. 10:59:03 ANGIOSEAL, FR6 VIP FR 6 placement in the Fem Art (right) 10:59:40 ZO=099 bpm, UOPU=293/86 mmhg, SpO2=93.0 %, Resp=15 B/min 11:00:40 Case End (Physician broke scrub) 11:01:10 Sterile dressing applied to site 11:01:11 No case complications noted. 11:01:12 Cine recording checked. 11:01:14 Bedside Report will be given. 11:01:15 Implantable Device card placed in patient's chart. 11:01:23 A Left Heart Cath was performed. 11:04:37 HR=89 bpm, REAN=976/90 mmhg, SpO2=94.0 %, Resp=19 B/min 11:07:53 Vitals capture stopped. 11:08:00 Patient moved to bed End Study - Contrast Media Used In Study Contrast Total Opened (mL) Total Used (mL) Total Wasted (mL) Omnipaque 350 200 130 70 End Study - Maximum Contrast Load Max Contrast Load (mL) 632.6 End Study - Radiation Exposure Fluoro Time (minutes) 10.1 End Study - Patient Disposition Complications Transferred To Interventional Outcome No Telemetry Bed No attempt made
[2018-09-27] MEDS: Sod Chloride 0.9% Inj 1,000 ML IV.CONT SCH ×4 (12:09→22:04)
[2018-09-27] MEDS: dilTIAZem 30 MG Tablet PO SCH (12:09)
[2018-09-27] MEDS: Senna/Docusate Sodium 8.6/50 MG Tablet PO SCH ×2 (12:12→21:57)
[2018-09-27] MEDS: dilTIAZem 60 MG Tablet PO SCH ×2 (12:15→17:59)
[2018-09-27] MEDS: Azithromycin 250 MG Tablet PO SCH (12:15)
--- NOTE | 2018-09-27 12:39 | MA ---
cc: Ruel Street MD DATE: 09/27/2018 PROCEDURES PERFORMED: 1. Left heart catheterization. 2. Left ventriculography. 3. Coronary angiography. 4. Fractional flow reserve measurement of the right coronary artery. 5. Right femoral angiography with Angio-Seal placement. BRIEF HISTORY: Rajni Randolph is a 77-year-old woman admitted with a COPD exacerbation. Her troponin was elevated, suggesting a possibility of a non-STEMI. She then later developed right-sided sharp chest pain, but also flipped her T-waves in anterior leads. With those developments, the picture appeared more suggestive of a non-STEMI. She had a nonsustained run of V-tach last night and has also gone into A-Fib. For this reason, she was advised to undergo cardiac catheterization and informed consent was obtained. DESCRIPTION OF PROCEDURE: The patient was brought to the cardiac catheterization lab in the fasting state. She was sedated with IV Versed. The right groin was prepped and draped in sterile fashion. Using a micropuncture set and fluoroscopy, a 6-Sudanese sheath was easily inserted into the right femoral artery. There was a tortuous aorta, so exchange wire technique was used. An angled pigtail catheter was then used to measure left ventricular pressure, followed by left ventriculography, and then a pullback. Coronary angiography was then completed using a left 5-Hern[place] for the left coronary artery and a 3DRC for the right coronary artery. Right coronary artery had ambiguous proximal and distal lesions. The vessel had an angulated takeoff, so I decided to do IFR measurements, and use an Amplatz catheter. A left 0.75 Amplatz also engaged fairly deeply, but acceptable to proceed. IFR was obtained of the proximal and distal right coronary artery lesions. The IFR values were 1.0, indicating no significant obstructions. No intervention was performed. The catheter was then removed. A followup angiogram was obtained with 3DRC catheter to make sure the ostium was unharmed, which it was. At that point, angiography was then obtained of the right femoral artery via the sheath, followed by uncomplicated Angio-Seal placement with good hemostasis. There were no complications. FINDINGS: HEMODYNAMICS: Left ventricular pressure is 111/10 with an end-diastolic pressure of 14. Aortic pressure is 118/71 with a mean of 92. During pullback from left ventricle to the aorta, there was no gradient measured. LEFT VENTRICULOGRAPHY: Left ventriculography shows mild global hypokinesis. Estimated ejection fraction is 45%. There was no mitral regurgitation. CORONARY ANGIOGRAPHY: Coronary circulation is right dominant. Left main coronary artery is very large and normal appearing. It bifurcates into the LAD and circumflex vessels. The LAD has about a 35% smooth mid stenosis. It wraps around the apex. The circumflex artery has about 10% circumflex and marginal branch irregularities. The right coronary artery is dominant and has about 50% proximal stenosis, and a proximal bend, and about a 50%, somewhat hazy distal stenosis before the crux. IFR measurement was 1.0. RIGHT FEMORAL ANGIOGRAPHY: The right femoral artery has mild calcification in the iliac system, but no stenosis. IMPRESSION: 1. Mildly impaired left ventricular systolic function. 2. Mild nonobstructive coronary artery disease. PLAN: Medical management. MD ALPA Hill/dc , 11:11 AM , 11:21 AM
[2018-09-27] MEDS: Umeclindinium 62.5 MCG/Vilanterol 25 MCG Inhaler INH SCH (12:46)
[2018-09-27] MEDS: Acetaminophen 325 MG Tablet PO PRN (12:46)
[2018-09-27] MEDS: Amoxicillin/Clavulanate 875/125 MG Tablet PO SCH ×2 (12:46→21:57)
[2018-09-27] MEDS: predniSONE 20 MG Tablet PO SCH ×2 (12:47→21:57)
--- NOTE | 2018-09-27 13:44 | ECG ---
Date Performed: 09/26/2018 Time Performed: 10:13:18 PTAGE: 77 years EKG: Atrial fibrillation with PVC(s). Possible anterior infarct - age undetermined Possible left ventricular hypertrophy Inferior/lateral ST-T changes are probably due to ventricular hypertrophy Lo w QRS voltages in limb leads Abnormal ECG Since PREVIOUS TRACING , no significant change noted PREVIOUS TRACIN09/26/2018 00.36 DOCTOR: Brendon Maria Interpretating Date/Time 09/27/2018 13:43:31
--- NOTE | 2018-09-27 14:17 | P.PNIM ---
Subjective Interval history: Patient seen after heart catheterization. She is found to have mild nonobstructive CAD. She currently denies chest pain. She is concern that she may get short of breath with activities. Physical Exam Vital signs: Vital Signs 09/26/18 14:20 09/26/18 15:00 09/26/18 15:20 Temperature Pulse Rate 87 87 83 Respiratory Rate 36 H 43 H 29 H Blood Pressure 117/64 122/70 Pulse Oximetry 97 95 100 09/26/18 16:00 09/26/18 16:20 09/26/18 17:00 Temperature Pulse Rate 90 88 84 Respiratory Rate 20 22 20 Blood Pressure 137/69 Pulse Oximetry 96 95 92 L 09/26/18 17:20 09/26/18 18:00 09/26/18 18:20 Temperature Pulse Rate 87 82 92 H Respiratory Rate 26 H 24 Blood Pressure 143/77 H 147/88 H Pulse Oximetry 93 L 93 L 94 L 09/26/18 19:00 09/26/18 19:20 09/26/18 19:21 Temperature 98.7 F Pulse Rate 98 H 91 H 79 Respiratory Rate 16 Blood Pressure 122/64 Pulse Oximetry 93 L 92 L 96 09/26/18 20:00 09/26/18 20:20 09/26/18 20:30 Temperature Pulse Rate 99 H 97 H Respiratory Rate 24 Blood Pressure 116/62 Pulse Oximetry 97 91 L 97 09/26/18 21:00 09/26/18 21:20 09/26/18 22:00 Temperature Pulse Rate 82 85 81 Respiratory Rate Blood Pressure 112/58 L Pulse Oximetry 92 L 92 L 94 L 09/26/18 22:20 09/26/18 23:00 09/26/18 23:20 Temperature Pulse Rate 89 97 H 93 H Respiratory Rate 20 24 22 Blood Pressure 145/77 H 130/70 Pulse Oximetry 91 L 97 96 09/27/18 00:00 09/27/18 00:20 09/27/18 01:00 Temperature Pulse Rate 84 81 87 Respiratory Rate 22 20 Blood Pressure 124/76 Pulse Oximetry 97 98 98 09/27/18 01:20 09/27/18 02:00 09/27/18 02:20 Temperature Pulse Rate 83 90 91 H Respiratory Rate 16 27 H Blood Pressure 138/81 136/90 Pulse Oximetry 96 98 96 09/27/18 03:00 09/27/18 03:20 09/27/18 04:00 Temperature 98.3 F Pulse Rate 90 87 95 H Respiratory Rate 26 H Blood Pressure 149/74 H Pulse Oximetry 97 93 L 93 L 09/27/18 04:21 09/27/18 04:22 09/27/18 05:00 Temperature Pulse Rate 105 H 101 H 88 Respiratory Rate Blood Pressure 175/88 H Pulse Oximetry 90 L 87 L 97 09/27/18 05:20 09/27/18 06:00 09/27/18 06:20 Temperature Pulse Rate 85 85 83 Respiratory Rate 21 28 H 30 H Blood Pressure 149/85 H 141/79 H Pulse Oximetry 96 98 98 09/27/18 06:29 09/27/18 07:06 09/27/18 07:20 Temperature Pulse Rate 120 H 107 H Respiratory Rate 28 H 32 H Blood Pressure 152/86 H Pulse Oximetry 97 95 98 09/27/18 07:40 09/27/18 08:00 09/27/18 08:01 Temperature 98.5 F Pulse Rate 93 H 88 Respiratory Rate 31 H 20 Blood Pressure Pulse Oximetry 97 99 09/27/18 08:20 09/27/18 08:45 09/27/18 09:00 Temperature Pulse Rate 107 H 112 H 108 H Respiratory Rate 26 H 29 H 35 H Blood Pressure 168/100 H 169/90 H 164/77 H Pulse Oximetry 99 93 L 89 L 09/27/18 09:15 09/27/18 11:50 Temperature Pulse Rate 106 H 88 Respiratory Rate 28 H 18 Blood Pressure 155/87 H Pulse Oximetry 95 Intake & Output 09/26/18 09/27/18 09/27/18 18:59 06:59 18:59 Intake Total 1100 / 1100 120 / 120 192 / 192 Balance 1100 / 1100 120 / 120 192 / 192 Weight 75.9 kg Intake: IV 350 / 350 192 / 192 Nitroglycerin Drip Premix 50 mg 2 / 2 In 250 ml @ 0 mls/hr .ROUTE . STK-MED ONE Rx#:[id number] Sterile Water for Injection 10 10 / 10 ML @ 0 mls/hr .ROUTE .STK-MED ONE Rx#:[id number] Heparin/D5W 25,000 U/250 mL 25, 180 / 180 000 unit In 250 ml @ Per Protocol IV.CONT TITRATE PRN Rx #:[id number] Azithromycin Inj 500 MG In NS 250 / 250 Inj 250 ML @ 250 mls/hr IV.SIG Q24H MASON Rx#:[id number] Zosyn 4.5 GM Premix 4.5 gm In 100 / 100 100 ml @ 200 mls/hr IV.SIG Q6H MASON Rx#:[id number] Oral 750 / 750 120 / 120 Other: # Voids 4 4 Date of Last Bowel Movement 09/27/18 09/27/18 # Bowel Movements 2 Narrative: GENERAL: Elderly female in no acute distress. CARDIOVASCULAR: Normal rate and regular rhythm without murmurs, gallops, or rubs. RESPIRATORY: Diminished breath sounds bilaterally, faint end expiratory wheezing. GASTROINTESTINAL: Abdomen soft, non-tender, non-distended. Normal active bowel sounds MUSCULOSKELETAL: Extremities without cyanosis, or edema. NEURO: Alert & Oriented x4 to person, place, time, situation. Moves all ext x4 PSYCH: Appropriate mood and affect. Results - Labs CBC & Chem 7: 09/27/18 04:32 09/27/18 04:18 Laboratory Results - last 24 hr 09/26/18 09/26/18 09/26/18 17:00 18:12 20:36 WBC RBC Hgb Hct MCV MCH MCHC RDW Plt Count MPV APTT 25.3 Sodium Potassium Chloride Carbon Dioxide Anion Gap BUN Creatinine Estimated GFR POC Glucose 106 146 H Random Glucose Calcium Magnesium Total Creatine Kinase Troponin I Digoxin 09/26/18 09/27/18 09/27/18 23:00 04:18 04:18 WBC RBC Hgb Hct MCV MCH MCHC RDW Plt Count MPV APTT 28.2 30.8 Sodium 137 Potassium 4.0 Chloride 103 Carbon Dioxide 28.1 Anion Gap 6 BUN 13 Creatinine 0.68 Estimated GFR 84 L POC Glucose Random Glucose 193 H Calcium 8.7 Magnesium Total Creatine Kinase 27 Troponin I 0.09 H D Digoxin 0.7 L 09/27/18 09/27/18 04:18 04:32 WBC 24.6 H RBC 6.11 H Hgb 14.3 Hct 45.4 MCV 74.3 L MCH 23.4 L MCHC 31.6 L RDW 19.9 H Plt Count 565 H MPV 8.3 APTT Sodium Potassium Chloride Carbon Dioxide Anion Gap BUN Creatinine Estimated GFR POC Glucose Random Glucose Calcium Magnesium 1.9 Total Creatine Kinase Troponin I Digoxin Microbiology 09/24/18 06:11 Blood - Peripheral Aerobic Blood Culture - Preliminary No growth in 3 days 09/24/18 06:11 Blood - Peripheral Anaerobic Blood Culture - Preliminary No growth in 3 days 09/24/18 05:50 Blood - Peripheral Aerobic Blood Culture - Preliminary No growth in 3 days 09/24/18 05:50 Blood - Peripheral Anaerobic Blood Culture - Preliminary No growth in 3 days Assessment and Plan - Plan 77-year-old female admitted with acute COPD exacerbation, sepsis secondary to bilateral lower lobe pneumonia, acute hypoxemic and hypercapnic respiratory failure requiring BiPAP. Acute hypoxemic and hypercapnic respiratory failure secondary to COPD and pneumonia: - Respiratory status improved. Patient initially required BiPAP. - Continue to treat pneumonia - Breathing treatment as needed - Continue with oral prednisone. - Incentive spirometry - Home oxygen test. Community acquired pneumonia: given zosyn in ED, continue Zosyn/ azithromycin for ICU CAP, narrow based on culture results -Blood cultures- no growth so far -UA negative -Urine legionella antigen negative -transitioned to Augmentin and continue Azithromycin. 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 -Continue home doses of amlodipine, nevibolol, losartan, atorvastatin, Imdur was been added. Diltiazem per Cardiology PROPHY: -PPI (patient is on protonix at home) -SCDs, lovenox Discharge Planning: Okay to transfer to floor. Home oxygen walk test. Will likely need home health.
[2018-09-28] MEDS: Chlorhexidine Gluconate 2% 1 Pack (2 Cloths) TOPICAL SCH (04:55)
[2018-09-28] MEDS: Isosorbide Mononitrate 30 MG ER 24HR Tablet (Imdur) PO SCH (06:19)
[2018-09-28 07:04] LABS: Hemoglobin 14.1 gm/dL (11.6-15.3); Mean Corpuscular HGB Conc 31.5 % (32.0-36.0); Mean Corpuscular Hemoglobin 23.4 pg (27.0-34.0); Mean Corpuscular Volume 74.5 fL (80.0-100.0); Mean Platelet Volume 8.3 fL (7.0-11.0); Platelet Count 540 th/mm3 (150-450); Red Blood Count 6.04 mil/mm3 (4.00-5.30)
[2018-09-28 07:20] LABS: Anion Gap 9 meq/L (5-15); Blood Urea Nitrogen 9 mg/dL (7-18); Calcium 8.6 mg/dL (8.5-10.1); Carbon Dioxide 28.2 meq/L (21.0-32.0); Chloride 99 meq/L (98-107); Glomerular Filtration Rate Greater Than 89 mL/min (>89); Glucose,Random 189 mg/dL (74-106); Potassium 3.7 meq/L (3.5-5.1); Sodium 136 meq/L (136-145)
[2018-09-28] MEDS: Azithromycin 250 MG Tablet PO SCH (08:29)
[2018-09-28] MEDS: Senna/Docusate Sodium 8.6/50 MG Tablet PO SCH ×2 (08:30→21:22)
[2018-09-28] MEDS: Amoxicillin/Clavulanate 875/125 MG Tablet PO SCH ×2 (08:30→21:22)
[2018-09-28] MEDS: predniSONE 20 MG Tablet PO SCH ×2 (08:30→21:22)
[2018-09-28] MEDS: dilTIAZem 60 MG Tablet PO SCH ×3 (08:30→18:12)
[2018-09-28] MEDS: Insulin NovoLIN Regular Correctional Sugar Inj SQ SCH ×4 (08:31→21:24)
[2018-09-28] MEDS: Umeclindinium 62.5 MCG/Vilanterol 25 MCG Inhaler INH SCH (08:45)
[2018-09-28] MEDS: Sod Chloride 0.9% Inj 1,000 ML IV.CONT SCH ×2 (13:50→17:39)
--- NOTE | 2018-09-28 15:18 | P.PNIM ---
Subjective Interval history: Patient reports she is feeling better overall. She is still requiring oxygen. No chest pain. Physical Exam Vital signs: Vital Signs 09/27/18 15:26 09/27/18 16:00 09/27/18 18:00 Temperature Pulse Rate 93 H 84 75 Respiratory Rate 24 23 22 Blood Pressure 107/57 L 94/53 L Pulse Oximetry 96 97 98 Pulse Oximetry [Exertion on Room Air] Pulse Oximetry [Exertion with Oxygen] Pulse Oximetry [Resting on Room Air] 09/27/18 19:50 09/27/18 20:00 09/28/18 00:00 Temperature 97.6 F 97.4 F L Pulse Rate 65 66 77 Respiratory Rate 18 18 18 Blood Pressure 117/68 124/78 Pulse Oximetry 97 94 L 97 Pulse Oximetry [Exertion on Room Air] Pulse Oximetry [Exertion with Oxygen] Pulse Oximetry [Resting on Room Air] 09/28/18 04:00 09/28/18 04:33 09/28/18 05:50 Temperature 98.1 F Pulse Rate 87 72 66 Respiratory Rate 17 16 Blood Pressure 137/80 Pulse Oximetry 99 97 Pulse Oximetry [Exertion on Room Air] Pulse Oximetry [Exertion with Oxygen] Pulse Oximetry [Resting on Room Air] 09/28/18 08:00 09/28/18 12:00 09/28/18 14:05 Temperature 97.5 F L 97.8 F Pulse Rate 76 66 Respiratory Rate 20 20 Blood Pressure 138/81 119/71 Pulse Oximetry 93 L 94 L Pulse Oximetry [Exertion on Room Air] 87 L Pulse Oximetry [Exertion with Oxygen] 95 Pulse Oximetry [Resting on Room Air] 93 L Intake & Output 09/27/18 09/28/18 09/28/18 18:59 06:59 18:59 Intake Total 442 / 442 1000 / 1000 Balance 442 / 442 1000 / 1000 Weight 77.3 kg Intake: IV 192 / 192 1000 / 1000 Nitroglycerin Drip Premix 50 mg 2 / 2 In 250 ml @ 0 mls/hr .ROUTE . STK-MED ONE Rx#:[id number] Sterile Water for Injection 10 10 / 10 ML @ 0 mls/hr .ROUTE .STK-MED ONE Rx#:[id number] Heparin/D5W 25,000 U/250 mL 25, 180 / 180 000 unit In 250 ml @ Per Protocol IV.CONT TITRATE PRN Rx #:[id number] NS Inj 1,000 ML @ 100 mls/hr IV 1000 / 1000 .CONT .Q10H [facility] Rx#:[id number] Oral 250 / 250 Other: # Voids 3 3 Date of Last Bowel Movement 09/27/18 09/27/18 09/28/18 # Bowel Movements 1 Narrative: GENERAL: Elderly female in no acute distress. CARDIOVASCULAR: Normal rate and regular rhythm without murmurs, gallops, or rubs. RESPIRATORY: Diminished breath sounds bilaterally, faint end expiratory wheezing. GASTROINTESTINAL: Abdomen soft, non-tender, non-distended. Normal active bowel sounds MUSCULOSKELETAL: Extremities without cyanosis, or edema. NEURO: Alert & Oriented x4 to person, place, time, situation. Moves all ext x4 PSYCH: Appropriate mood and affect. Results - Labs CBC & Chem 7: 09/28/18 05:16 09/28/18 05:16 Laboratory Results - last 24 hr 09/27/18 09/28/18 09/28/18 21:11 04:30 04:31 WBC RBC Hgb Hct MCV MCH MCHC RDW Plt Count MPV Sodium Potassium Chloride Carbon Dioxide Anion Gap BUN Creatinine Estimated GFR POC Glucose 195 H 186 H 208 H Random Glucose Calcium 09/28/18 09/28/18 09/28/18 05:16 05:16 08:09 WBC 16.0 H RBC 6.04 H Hgb 14.1 Hct 45.0 MCV 74.5 L MCH 23.4 L MCHC 31.5 L RDW 20.0 H Plt Count 540 H MPV 8.3 Sodium 136 Potassium 3.7 Chloride 99 Carbon Dioxide 28.2 Anion Gap 9 BUN 9 Creatinine 0.61 Estimated GFR Greater than 89 POC Glucose 158 H Random Glucose 189 H Calcium 8.6 09/28/18 12:36 WBC RBC Hgb Hct MCV MCH MCHC RDW Plt Count MPV Sodium Potassium Chloride Carbon Dioxide Anion Gap BUN Creatinine Estimated GFR POC Glucose 164 H Random Glucose Calcium Microbiology 09/24/18 06:11 Blood - Peripheral Aerobic Blood Culture - Preliminary No growth in 4 days 09/24/18 06:11 Blood - Peripheral Anaerobic Blood Culture - Preliminary No growth in 4 days 09/24/18 05:50 Blood - Peripheral Aerobic Blood Culture - Preliminary No growth in 4 days 09/24/18 05:50 Blood - Peripheral Anaerobic Blood Culture - Preliminary No growth in 4 days Assessment and Plan - Plan 77-year-old female admitted with acute COPD exacerbation, sepsis secondary to bilateral lower lobe pneumonia, acute hypoxemic and hypercapnic respiratory failure requiring BiPAP. Acute hypoxemic and hypercapnic respiratory failure secondary to COPD and pneumonia: - Respiratory status improved. Patient initially required BiPAP. - Continue to treat pneumonia - Breathing treatment as needed - Continue with oral prednisone. - Incentive spirometry -Will likely need home oxygen. Work tests ordered. Community acquired pneumonia: given zosyn in ED, continue Zosyn/ azithromycin for ICU CAP, narrow based on culture results -Blood cultures- no growth so far -UA negative -Urine legionella antigen negative -She was transitioned to Augmentin and continue Azithromycin. 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 -Continue home doses of amlodipine, nevibolol, losartan, atorvastatin, Imdur was been added. Diltiazem per Cardiology PROPHY: -PPI (patient is on protonix at home) -SCDs, lovenox Discharge Planning: Improving. Anticipate discharge to home with home health tomorrow morning. Needs oxygen.
--- NOTE | 2018-09-28 15:20 | P.DCO ---
- Diagnosis (1) Acute exacerbation of chronic obstructive pulmonary disease (COPD) Status: Acute (2) Community acquired pneumonia Status: Acute (3) Respiratory failure Status: Acute - Home Health Nursing Order: Medical education, Oxygen administration education, Nursing assessment with vital signs - Case Management Consult Case Management Consult-Home Health: Yes - Certification I have seen patient Rajni Randolph on 09/28/18. My clinical findings support the need for the requested home health care services because: Patient has SOB I certify that my clinical findings support that this patient is homebound because: Hx COPD - exertion dyspnea/weakness (2) Community acquired pneumonia Qualifiers: Lung location: lower lobe of lung (3) Respiratory failure Qualifiers: Chronicity: acute on chronic Respiratory failure complication: hypoxia and hypercapnia Qualified Code(s): J96.21 - Acute and chronic respiratory failure with hypoxia; J96.22 - Acute and chronic respiratory failure with hypercapnia
--- NOTE | 2018-09-28 16:21 | P.PNCA ---
Subjective Interval history: No complaints. No chest pain Medications and Allergies Active Medications: Active Medications Acetaminophen (Tylenol) 650 mg PO Q6H PRN PRN Reason: PAIN 1-10 AND/OR FEVER >101F Last Admin: 09/27/18 12:46 Dose: 650 mg Al Hydroxide/Mg Hydroxide (Milk Of Dinah Liq) 30 ml PO Q12H PRN PRN Reason: Mild Constipation Albuterol (Albuterol Neb (Prn)) 2.5 mg NEB Q2HR NEB PRN PRN Reason: SHORTNESS OF BREATH/WHEEZING Amoxicillin/Clavulanate Potassium (Augmentin 875/125 Mg) 1 tab PO Q12HR [facility] Last Admin: 09/28/18 08:30 Dose: 1 tab Apixaban (Eliquis) 5 mg PO BID [facility] Last Admin: 09/28/18 08:30 Dose: 5 mg Atorvastatin Calcium (Lipitor) 10 mg PO DAILY [facility] Last Admin: 09/28/18 08:31 Dose: 10 mg Azithromycin (Zithromax) 500 mg PO DAILY [facility] Last Admin: 09/28/18 08:29 Dose: 500 mg Bisacodyl (Dulcolax Supp) 10 mg RECTAL DAILY PRN PRN Reason: SEVERE CONSITIPATION Chlorhexidine Gluconate (Chlorhexidine 2% Cloth) 3 pack TOPICAL DAILY@0400 [facility] Stop: 09/30/18 03:59 Last Admin: 09/28/18 04:55 Dose: Not Given Chlorhexidine Gluconate (Chlorhexidine 2% Cloth) 3 pack TOPICAL DAILY@0400 PRN PRN Reason: Extra cloth needed Stop: 09/30/18 03:59 Dextrose (D50w Vial) 50 ml IV.PUSH UNSCH PRN PRN Reason: PER HYPOGLYCEMIA PROTOCOL Diltiazem HCl (Cardizem) 60 mg PO TID [facility] Stop: 09/29/18 06:00 Last Admin: 09/28/18 12:50 Dose: 60 mg Diltiazem HCl (Cardizem Cd 24hr) 180 mg PO ONCE ONE Stop: 09/29/18 09:01 Fluticasone Propionate (Flonase Nasal [place]) 2 spray EACH NARE DAILY [facility] Last Admin: 09/28/18 08:31 Dose: 2 spray Glucagon (Glucagon Inj) 1 mg OTHER PRN PRN PRN Reason: for Hypoglycemia Protocol Sodium Chloride (Ns Inj) 1,000 mls @ 100 mls/hr IV.CONT .Q10H [facility] Last Admin: 09/28/18 13:50 Dose: Not Given Nitroglycerin/Dextrose (Nitroglycerin Drip Premix) 50 mg in 250 mls @ 0.9 mls/ hr IV.CONT TITRATE PRN; Protocol PRN Reason: Per Protocol Insulin Human Regular (Novolin R [place] Sugar Inj) 0 units SQ ACHS [facility]; Protocol Last Admin: 09/28/18 12:50 Dose: 1 units Ipratropium [place] (Atrovent Neb) 0.5 mg NEB Q2HR NEB PRN PRN Reason: WHEEZING Isosorbide Mononitrate (Imdur) 30 mg PO DAILY@0700 [facility] Last Admin: 09/28/18 06:19 Dose: 30 mg Lactulose (Lactulose Liq) 30 ml PO DAILY PRN PRN Reason: SEVERE CONSITIPATION Losartan Potassium (Cozaar) 50 mg PO BID [facility] Last Admin: 09/28/18 08:30 Dose: 50 mg Melatonin (Melatonin) 5 mg PO HS PRN PRN Reason: INSOMNIA Last Admin: 09/25/18 20:15 Dose: 5 mg Nebivolol (Bystolic) 5 mg PO DAILY [facility] Last Admin: 09/28/18 08:30 Dose: 5 mg Nitroglycerin (Nitrostat Sl) 0.4 mg SL Q5M PRN PRN Reason: CHEST PAIN Ondansetron HCl (Zofran Inj) 4 mg IV.PUSH Q6H PRN PRN Reason: NAUSEA OR VOMITING Last Admin: 09/24/18 12:50 Dose: 4 mg Pantoprazole Sodium (Protonix) 40 mg PO DAILY [facility] Last Admin: 09/28/18 08:30 Dose: 40 mg Pt Own Med : ( (Letrozole 2.5 Mg )) 0 each PO DAILY [facility] Prednisone (Deltasone) 20 mg PO BID [facility] Last Admin: 09/28/18 08:30 Dose: 20 mg Senna/Docusate Sodium (Ita-Colace) 1 tab PO BID [facility] Last Admin: 09/28/18 08:30 Dose: 1 tab Sennosides (Senokot) 17.2 mg PO Q12H PRN PRN Reason: Moderate Constipation Sodium Chloride (Ns Flush) 2 ml IV.FLUSH BID [facility] Last Admin: 09/28/18 08:45 Dose: 2 ml Sodium Chloride (Ns Flush) 2 ml IV.FLUSH PRN PRN PRN Reason: FLUSH AFTER USING IV ACCESS Umeclidinium/Vilanterol (Anoro-Ellipta 62.5/25 Mcg Inh) 1 inhalation INH Q24H [facility] Last Admin: 09/28/18 08:45 Dose: 1 inhalation Allergies Allergy/AdvReac Type Severity Reaction Status Date / Time No Known Allergies Allergy Uncoded 05/30/15 10:00 Home Medications Medication Instructions Recorded Confirmed Type amlodipine 2.5 mg PO DAILY 09/24/18 09/24/18 History aspirin 325 mg PO DAILY 09/24/18 09/24/18 History atorvastatin 10 mg PO DAILY 09/24/18 09/24/18 History calcium carbonate-vitamin D3 1 tab PO QAM 09/24/18 09/24/18 History [Calcium 600 + D(3)] fluticasone 1 inh INHALATION Q12H 09/24/18 09/24/18 History letrozole 2.5 mg PO DAILY 09/24/18 09/24/18 History losartan 50 mg PO BID 09/24/18 09/24/18 History magnesium oxide 40 mg PO DAILY 09/24/18 09/24/18 History nebivolol [Bystolic] 5 mg PO DAILY 09/24/18 09/24/18 History nitroglycerin 0.4 mg SUBLINGUAL Q5-15M PRN 09/24/18 09/24/18 History omega 1-lnp-vij-fish oil [Fish Oil] 1,200 mg PO DAILY 09/24/18 09/24/18 History pantoprazole [Protonix] 40 mg PO DAILY 09/24/18 09/24/18 History polyethylene glycol 3350 [Miralax] 17 g PO DAILY PRN 09/24/18 09/24/18 History umeclidinium-vilanterol [Anoro 1 inh INHALATION Q24H 09/24/18 09/24/18 History Ellipta] wheat dextrin [Benefiber Sugar 1 packet PO DAILY 09/24/18 09/24/18 History Free (dextrin)] Physical Exam Vital signs: Vital Signs 09/27/18 18:00 09/27/18 19:50 09/27/18 20:00 Temperature 97.6 F Pulse Rate 75 65 66 Respiratory Rate 22 18 18 Blood Pressure 117/68 Pulse Oximetry 98 97 94 L Pulse Oximetry [Exertion on Room Air] Pulse Oximetry [Exertion with Oxygen] Pulse Oximetry [Resting on Room Air] 09/28/18 00:00 09/28/18 04:00 09/28/18 04:33 Temperature 97.4 F L 98.1 F Pulse Rate 77 87 72 Respiratory Rate 18 17 16 Blood Pressure 124/78 137/80 Pulse Oximetry 97 99 97 Pulse Oximetry [Exertion on Room Air] Pulse Oximetry [Exertion with Oxygen] Pulse Oximetry [Resting on Room Air] 09/28/18 05:50 09/28/18 08:00 09/28/18 12:00 Temperature 97.5 F L 97.8 F Pulse Rate 66 76 66 Respiratory Rate 20 20 Blood Pressure 138/81 119/71 Pulse Oximetry 93 L 94 L Pulse Oximetry [Exertion on Room Air] Pulse Oximetry [Exertion with Oxygen] Pulse Oximetry [Resting on Room Air] 09/28/18 14:05 Temperature Pulse Rate Respiratory Rate Blood Pressure Pulse Oximetry Pulse Oximetry [Exertion on Room Air] 87 L Pulse Oximetry [Exertion with Oxygen] 95 Pulse Oximetry [Resting on Room Air] 93 L Intake & Output 09/27/18 09/28/18 09/28/18 18:59 06:59 18:59 Intake Total 442 / 442 1000 / 1000 Balance 442 / 442 1000 / 1000 Weight 77.3 kg Intake: IV 192 / 192 1000 / 1000 Nitroglycerin Drip Premix 50 mg 2 / 2 In 250 ml @ 0 mls/hr .ROUTE . STK-MED ONE Rx#:[id number] Sterile Water for Injection 10 10 / 10 ML @ 0 mls/hr .ROUTE .STK-MED ONE Rx#:[id number] Heparin/D5W 25,000 U/250 mL 25, 180 / 180 000 unit In 250 ml @ Per Protocol IV.CONT TITRATE PRN Rx #:[id number] NS Inj 1,000 ML @ 100 mls/hr IV 1000 / 1000 .CONT .Q10H [facility] Rx#:[id number] Oral 250 / 250 Other: # Voids 3 3 Date of Last Bowel Movement 09/27/18 09/27/18 09/28/18 # Bowel Movements 1 Narrative: Alert Chest diminished BS CV S1S2 irr irr. (AF with CVR on tele Abd soft Right groin OK No edema Results 09/28/18 05:16 09/28/18 05:16 Cardiac Enzymes 09/27/18 Range/Units 04:18 Troponin I 0.09 H D (0.02-0.05) ng/mL Coagulation 09/26/18 09/26/18 09/27/18 Range/Units 17:00 23:00 04:18 APTT 25.3 28.2 30.8 (23.4-31.7) sec CBC 09/27/18 09/28/18 Range/Units 04:32 05:16 WBC 24.6 H 16.0 H (4.0-11.0) th/mm3 RBC 6.11 H 6.04 H (4.00-5.30) mil/mm3 Hgb 14.3 14.1 (11.6-15.3) gm/dL Hct 45.4 45.0 (35.0-46.0) % Plt Count 565 H 540 H (150-450) th/mm3 Comprehensive Metabolic Panel 09/27/18 09/28/18 Range/Units 04:18 05:16 Sodium 137 136 (136-145) meq/L Potassium 4.0 3.7 (3.5-5.1) meq/L Chloride 103 99 (98-107) meq/L Carbon Dioxide 28.1 28.2 (21.0-32.0) meq/L BUN 13 9 (7-18) mg/dL Creatinine 0.68 0.61 (0.50-1.00) mg/dL Calcium 8.7 8.6 (8.5-10.1) mg/dL Intake and Output 09/28/18 09/28/18 09/28/18 06:59 14:59 22:59 Other: # Voids 3 Date of Last Bowel Movement 09/28/18 Weight 77.3 kg Assessment and Plan - Assessment (1) Non-ST elevated myocardial infarction (non-STEMI) Code(s): I21.4 - Non-ST elevation (NSTEMI) myocardial infarction Status: Acute Plan: Suspect she did Not have DE. Elevated troponin secondary to COPD and AF RVR (2) Atrial fibrillation Code(s): I48.91 - Unspecified atrial fibrillation Status: Acute Plan: Controlled. Stop ASA. Cont Eliquis. Change Dilt to 180mg daily. Cont Bystolic (3) Acute exacerbation of chronic obstructive pulmonary disease (COPD) Code(s): J44.1 - Chronic obstructive pulmonary disease with (acute) exacerbation Status: Acute - Plan 09/26/2018: New afib with mildly increased rate started last night. Also new chest pain - has atypical features but there are new TWI anterior leads suggesting LAD ischemia/ NON-STEMI. Currently pain free. I am changing her lovenox to IV heparin. Add PO diltiazem for rate control. NPO after MN for possible heart cath tomorrow. Cancel transfer. 09/28/2018: OK to DC home once COPD stable.
[2018-09-28 20:34] VITALS: O2SAT 94
[2018-09-29] MEDS: Chlorhexidine Gluconate 2% 1 Pack (2 Cloths) TOPICAL SCH (05:52)
[2018-09-29 07:10] LABS: Hematocrit 44.4 % (35.0-46.0); Hemoglobin 13.8 gm/dL (11.6-15.3); Mean Corpuscular HGB Conc 31.1 % (32.0-36.0); Mean Corpuscular Hemoglobin 23.3 pg (27.0-34.0); Mean Corpuscular Volume 74.8 fL (80.0-100.0); Mean Platelet Volume 8.2 fL (7.0-11.0); Platelet Count 575 th/mm3 (150-450); Red Blood Count 5.93 mil/mm3 (4.00-5.30); White Blood Count 18.1 th/mm3 (4.0-11.0)
[2018-09-29] MEDS: Isosorbide Mononitrate 30 MG ER 24HR Tablet (Imdur) PO SCH (07:19)
--- NOTE | 2018-09-29 08:51 | P.DS ---
Date of admission: 09/24/18 06:38 Primary care physician: Pawel Rodriguez MD Brief History from admission: HPI as documented by the admitting provider: [id number] presenting to the Emergency Department via EMS with complaint of shortness of breath and cough x 2-3 days. The patient states that she's had a productive cough and is dyspneic both and rest and on exertion, denies fever or chills, chest pain, palpitations, nausea, or myalgias. On EMS arrival, she was found to have a pulse ox in the 70s on room air, was given 125 mg solumedrol and 2 duonebs prior to arrival. In the ED, the patient was tachypneic and somewhat distressed, found to have pH of 7.27 and pCO2 of 53, bibasilar pneumonia (R>L), and appeared anxious. She was placed on bipap but had difficulty tolerating the mask due to anxiety, was given low-dose ativan and started on low-dose precedex drip with relief of anxiety and respiratory distress. No known recent sick contacts or travel. 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 Former smoking history, quit 40 years ago. Lives at home, no hospitalizations within the past 3 months. Family history is non-contributory. Patient update on day of discharge: Patient reports she is feeling better overall. We discussed discharge planning at length. All of her questions were answered. DS: Diagnosis - Discharge Diagnosis (1) Acute exacerbation of chronic obstructive pulmonary disease (COPD) Status: Acute (2) Community acquired pneumonia Status: Acute (3) Respiratory failure Status: Acute DS: Medications - Discharge Medications Prescriptions: amoxicillin-pot clavulanate 1 tab PO Q12HR #6 tab apixaban [Eliquis] 5 mg PO BID #60 tab azithromycin 500 mg PO DAILY #3 tab isosorbide mononitrate 30 mg PO DAILY@0700 #30 tab prednisone 10 mg PO DAILY #8 tab DS: Summary Hospital Course: 77-year-old female admitted with acute COPD exacerbation, sepsis secondary to bilateral lower lobe pneumonia, acute hypoxemic and hypercapnic respiratory failure requiring BiPAP. Evaluation and treatment course detailed below: Acute hypoxemic and hypercapnic respiratory failure secondary to COPD and pneumonia: - Respiratory status improved. Patient initially required BiPAP. - Continue treatment for pneumonia with a few more days of antibiotics outpatient. -Patient discharged on prednisone taper. -She does require oxygen and was sent home with oxygen to follow-up outpatient. Community acquired pneumonia: given zosyn in ED, continue Zosyn/ azithromycin for ICU CAP, narrow based on culture results -Blood cultures- no growth -UA negative -Urine legionella antigen negative -She was transitioned to Augmentin and Azithromycin. 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 -Continue home doses of amlodipine, nevibolol, losartan, atorvastatin, Imdur was been added. Anxiety: Patient does have anxiety relate to her medical condition. This improved as her condition improved. She will follow up outpatient with PCP. - Time Spent with Patient Total time spent providing and/or coordinating discharge services: Greater than 30 minutes Exam Vital signs: Vital Signs 09/28/18 12:00 09/28/18 14:05 09/28/18 16:00 Temperature 97.8 F 97.9 F Pulse Rate 66 77 Respiratory Rate 20 20 Blood Pressure 119/71 138/81 Pulse Oximetry 94 L 93 L Pulse Oximetry [Exertion on Room Air] 87 L Pulse Oximetry [Exertion with Oxygen] 95 Pulse Oximetry [Resting on Room Air] 93 L 09/28/18 17:04 09/28/18 20:00 09/29/18 00:00 Temperature 97 F L 98.1 F Pulse Rate 85 71 Respiratory Rate 20 20 Blood Pressure 122/56 L 144/77 H Pulse Oximetry 93 L 94 L 94 L Pulse Oximetry [Exertion on Room Air] Pulse Oximetry [Exertion with Oxygen] Pulse Oximetry [Resting on Room Air] 09/29/18 04:00 09/29/18 05:24 Temperature 97.3 F L Pulse Rate 81 72 Respiratory Rate 16 Blood Pressure 136/81 Pulse Oximetry 94 L Pulse Oximetry [Exertion on Room Air] Pulse Oximetry [Exertion with Oxygen] Pulse Oximetry [Resting on Room Air] Intake & Output 09/28/18 09/29/18 09/29/18 18:59 06:59 18:59 Intake Total 1000 / 1000 Balance 1000 / 1000 Weight 76.3 kg Intake: IV 1000 / 1000 NS Inj 1,000 ML @ 100 mls/hr IV 1000 / 1000 .CONT .Q10H [facility] Rx#:[id number] Other: # Voids 3 Date of Last Bowel Movement 09/28/18 09/29/18 # Bowel Movements 1 Narrative: GENERAL: Elderly female in no acute distress. CARDIOVASCULAR: Normal rate and regular rhythm without murmurs, gallops, or rubs. RESPIRATORY: Diminished breath sounds at the bases bilaterally, otherwise clear to auscultation. GASTROINTESTINAL: Abdomen soft, non-tender, non-distended. Normal active bowel sounds MUSCULOSKELETAL: Extremities without cyanosis, or edema. NEURO: Alert & Oriented x4 to person, place, time, situation. Moves all ext x4 PSYCH: Appropriate mood and affect. Results Procedures completed during hospitalization: None Labs on day of discharge: Labs from last 24 hours 09/29/18 09/29/18 09/28/18 07:36 06:26 21:10 WBC 18.1 H RBC 5.93 H Hgb 13.8 Hct 44.4 MCV 74.8 L MCH 23.3 L MCHC 31.1 L RDW 20.0 H Plt Count 575 H MPV 8.2 POC Glucose 124 H 175 H 09/28/18 09/28/18 17:15 12:36 WBC RBC Hgb Hct MCV MCH MCHC RDW Plt Count MPV POC Glucose 208 H 164 H Preliminary micro results at discharge 09/24/18 06:11 Aerobic Blood Culture - Preliminary Blood - Peripheral No growth in 4 days Anaerobic Blood Culture - Preliminary No growth in 4 days 09/24/18 05:50 Aerobic Blood Culture - Preliminary Blood - Peripheral No growth in 4 days Anaerobic Blood Culture - Preliminary No growth in 4 days - Impressions ITS Impressions Chest X-Ray 09/24/18 05:08 CONCLUSION: 1. Mild right greater than left lower lung zone pulmonary opacity. 2. Mild cardiac silhouette enlargement. Discharge Plan - Discharge Disposition Patient Disposition: Disch W/Home Health Service - Discharge Condition Condition: Stable - Discharge Order Discharge Orders: Discharge Order (Routine); Ordered 09/29/18 Ordered By: Yaritza Bennett - Physicians Team Primary Care Provider: Pawel Rodriguez Attending Provider: Yaritza Bennett Other Providers: Ruel Street MD ; [employer] ; [facility]
[2018-09-29] MEDS ORDERED: dilTIAZem CD 180 MG Capsule PO ONE (09:00)
[2018-09-29] MEDS: Insulin NovoLIN Regular Correctional Sugar Inj SQ SCH ×2 (09:29→12:32)
[2018-09-29] MEDS: predniSONE 20 MG Tablet PO SCH (09:30)
[2018-09-29] MEDS: Azithromycin 250 MG Tablet PO SCH (09:31)
[2018-09-29] MEDS: Umeclindinium 62.5 MCG/Vilanterol 25 MCG Inhaler INH SCH (09:31)
[2018-09-29] MEDS: Amoxicillin/Clavulanate 875/125 MG Tablet PO SCH (09:31)
[2018-09-29] MEDS: Senna/Docusate Sodium 8.6/50 MG Tablet PO SCH (09:32)
[2018-09-29 10:19] VITALS: BP 149/92; RESP 18; TEMP 98.2
[2018-09-29 14:39] VITALS: PULSE 93
== END 2018-09-29 14:04 | disposition home health service (06) ==
LOC: NEPE 04:52 → NEDA 06:38 → NEDH 09:12 → N03 12:10 → N05 09-27 18:37
PROVIDERS: ADMIT Family Medicine; ATTEND Family Medicine

== ENCOUNTER 2018-10-28 18:54 | Inpatient (IN) ==
[2018-10-28] MEDS ORDERED: MethylPREDNISolone Sod Succinate Inj 125 MG/2 ML Vial IV.PUSH ONE (19:51)
--- NOTE | 2018-10-28 20:11 | XR ---
EXAM DATE: 10/28/2018 8:08 PM EST AGE/SEX: 77 years / Female INDICATIONS: Shortness of breath. CLINICAL DATA: This is the patient's initial encounter. Patient reports that signs and symptoms have been present for 1 day and indicates a pain score of 3/10. MEDICAL/SURGICAL HISTORY: Chronic obstructive pulmonary disease. Mastectomy, bilateral. [place] [facility] [place]. . FINDINGS: Hazy opacities in the lower lung zones bilaterally. Cardiac silhouette is enlarged with diffuse inter stitial prominence and indistinct central pulmonary vascularity. Remainder of exam is unchanged. CONCLUSION: 1. Cardiomegaly with pulmonary vascular congestion. 2. Likely small bilateral pleural effusions with associated airspace disease in the lower lung zones , right greater than left. Electronically signed by: Bill Méndez MD Board Certified Radiologist 10/28/2018 8:10 PM [facility]
[2018-10-28 20:37] LABS: Albumin 3.6 g/dL (3.4-5.0); Anion Gap 9 meq/L (5-15); Aspartate Aminotransferase 26 U/L (15-37); Blood Urea Nitrogen 9 mg/dL (7-18); Carbon Dioxide 28.4 meq/L (21.0-32.0); Chloride 102 meq/L (98-107); Glomerular Filtration Rate 84 mL/min (>89); Glucose,Random 99 mg/dL (74-106); Potassium 4.1 meq/L (3.5-5.1); Sodium 139 meq/L (136-145)
[2018-10-28 20:38] LABS: Alanine Aminotransferase 38 U/L (10-53)
[2018-10-28 20:42] LABS: Alkaline Phosphatase 145 U/L (45-117); Total Protein 6.9 g/dL (6.4-8.2)
[2018-10-28 21:15] LABS: Baso # (Auto) 0.4 th/mm3 (0.0-0.2); Baso % (Auto) 2.6 % (0.0-2.0); Eos # (Auto) 0.2 th/mm3 (0.0-0.4); Eos % (Auto) 1.3 % (0.0-4.0); Hemoglobin 15.2 gm/dL (11.6-15.3); Lymph # (Auto) 1.3 th/mm3 (1.0-4.8); Lymph % (Auto) 7.7 % (9.0-44.0); Mean Corpuscular HGB Conc 32.4 % (32.0-36.0); Mean Corpuscular Hemoglobin 24.3 pg (27.0-34.0); Mean Corpuscular Volume 74.9 fL (80.0-100.0); Mean Platelet Volume 8.6 fL (7.0-11.0); Mono # (Auto) 0.7 th/mm3 (0.0-0.9); Mono % (Auto) 4.2 % (0.0-8.0); Neut # (Auto) 13.7 th/mm3 (1.8-7.7); Neut % (Auto) 84.2 % (16.0-70.0); Platelet Count 532 th/mm3 (150-450); Red Blood Count 6.28 mil/mm3 (4.00-5.30); Red Cell Distribution Width 21.5 % (11.6-17.2); White Blood Count 16.3 th/mm3 (4.0-11.0)
[2018-10-28 21:22] LABS: Bilirubin,Urine Negative (Negative); Clarity,Urine Clear (Clear); Color,Urine Yellow (Yellw/Straw); Glucose,Urine (UA) 50 mg/dL (Negative); Leukocyte Esterase,Urine Negative (Negative); Mucus,Urine Few /lpf (Occasional); Nitrite,Urine Negative (Negative); Specific Gravity,Urine 1.012 (1.002-1.035); Squamous Epithelial Cell,Urine <1 /hpf (0-5)
[2018-10-28 21:29] LABS: Eosinophils 1 % (0-4); Lymphocytes 6 % (9-44); Monocytes 5 % (0-8)
[2018-10-28 21:30] LABS: Ovalocytes 1+; Platelet Morphology Normal (Normal)
[2018-10-28 21:31] LABS: Toxic Granulation 1+; Toxic Vacuolation Present
--- NOTE | 2018-10-28 21:48 | ED ---
HPI General Chief Complaint: Shortness of Breath/Dyspnea Stated Complaint: SOB Time Seen by Provider: 10/28/18 19:45 Source: patient Mode of arrival: ambulatory Limitations: no limitations History of Present Illness 77-year-old female came to the emergency room with history of progressive shortness of breath since yesterday. Patient has history of COPD and requires 2 -3 L of oxygen via nasal cannula at home. Patient says that today she was having hard time walking a few steps without catching her breath. Her compressed gases tester is Dr. Farfan. Patient also has history of atrial fibrillation and sees Dr. Street. Patient says that she has been experiencing chest tightness and used her inhaler once this morning. No history of fever or chills. Patient had a cardiac catheterization done couple months back which did not show any critical lesions and hence did not require any stenting. Patient is on Eliquis for her atrial fibrillation which was diagnosed 1 month back. She takes 5 mg twice daily. Patient also has history of breast cancer with bilateral mastectomy on remission. Patient was hypoxic at 92% oxygen saturation on 2 L of oxygen via nasal cannula. She appeared to be in some respiratory distress as she was giving me the history. Related Data Home Medications Medication Instructions Recorded Confirmed atorvastatin 10 mg PO DAILY 09/24/18 10/28/18 calcium carbonate-vitamin D3 1 tab PO QAM 09/24/18 10/28/18 [Calcium 600 + D(3)] fluticasone 1 inh INHALATION Q12H 09/24/18 10/28/18 letrozole 2.5 mg PO DAILY 09/24/18 10/28/18 losartan 50 mg PO BID 09/24/18 10/28/18 magnesium oxide 40 mg PO DAILY 09/24/18 10/28/18 nebivolol [Bystolic] 5 mg PO DAILY 09/24/18 10/28/18 nitroglycerin 0.4 mg SUBLINGUAL Q5-15M PRN 09/24/18 10/28/18 omega [id number]-ubj-fish oil [Fish Oil] 1,200 mg PO DAILY 09/24/18 10/28/18 pantoprazole [Protonix] 40 mg PO DAILY 09/24/18 10/28/18 polyethylene glycol 3350 [Miralax] 17 g PO DAILY PRN 09/24/18 10/28/18 umeclidinium-vilanterol [Anoro 1 inh INHALATION Q24H 09/24/18 10/28/18 Ellipta] wheat dextrin [Benefiber Sugar 1 packet PO DAILY 09/24/18 10/28/18 Free (dextrin)] batycxjlgfs-soqoiodiw-uigqkori 1 inh INHALATION DAILY 10/29/18 10/29/18 [Trelegy Ellipta] Previous Rx's Medication Instructions Recorded apixaban [Eliquis] 5 mg PO BID #60 tab 09/29/18 alprazolam [Xanax] 0.25 mg PO Q8H PRN #9 tab 11/01/18 diltiazem HCl 120 mg PO DAILY #30 cap 11/01/18 doxycycline hyclate 100 mg PO BID 4 Days #8 tab 11/01/18 hydrocodone-acetaminophen 1 tab PO Q4H PRN #12 tab 11/01/18 prednisone 20 mg PO DAILY #4 tab 11/01/18 umeclidinium-vilanterol [Anoro 1 inhalation INH Q24H #1 ea 11/01/18 Ellipta] Allergies Allergy/AdvReac Type Severity Reaction Status Date / Time No Known Allergies Allergy Verified 10/28/18 19:00 Review of Systems ROS: all other systems reviewed are negative [facility] Medical History Medical History COPD (chronic obstructive pulmonary disease) (Acute) Diabetes (Acute) HTN (hypertension) (Acute) Surgical History Surgical History H/O mastectomy (Acute) Family History Family History Other Coronary artery disease Diabetes mellitus Social History Social History Substance History: No History of Abuse Second Hand Smoke Exposure: No Smoking Status: Former smoker Tobacco Type: Cigarettes How Often Do You Have a Drink Containing Alcohol: 2 to 4 times a month Hx Recent Travel: No Recent Travel in [facility] within the Last 8 Weeks: No Recent Out of Country Travel within the Last 8 Weeks: No Immunization History Tetanus Immunization: Unsure Exam Narrative Exam Narrative: GENERAL: Awake, alert, anxious, moderate respiratory distress SKIN: Focused skin assessment warm/dry. HEAD: Atraumatic. Normocephalic. EYES: Pupils equal and round. No scleral icterus. No injection or drainage. ENT: No nasal bleeding or discharge. Mucous membranes pink and moist. NECK: Trachea midline. No JVD. CARDIOVASCULAR: Irregularly irregular rhythm. No murmur appreciated. RESPIRATORY: Tachypnea, decreased air entry bilaterally, respiratory to GASTROINTESTINAL: Abdomen soft, non-tender, nondistended. Hepatic and splenic margins not palpable. MUSCULOSKELETAL: No obvious deformities. No clubbing. No cyanosis. No edema. NEUROLOGICAL: Awake and alert. No obvious cranial nerve deficits. Motor grossly within normal limits. Normal speech. PSYCHIATRIC: Appropriate mood and affect; insight and judgment normal. Course Initial Documented Vital Signs Temperature 97.5 F L 10/28/18 19:01 Pulse Rate 95 H 10/28/18 19:01 Respiratory Rate 22 10/28/18 19:01 Blood Pressure 218/104 H 10/28/18 19:01 Pulse Oximetry 95 10/28/18 19:01 Last Documented Vital Signs Temperature 98.4 F 11/01/18 12:00 Pulse Rate 81 11/01/18 16:08 Respiratory Rate 14 11/01/18 16:08 Blood Pressure 124/63 11/01/18 12:00 Pulse Oximetry 95 11/01/18 12:00 Medical Decision Making MDM Narrative Medical decision making narrative: 9:53 PM patient was given 2 duo nebs, IV Solu -Medrol. Blood test results are back and chest x-ray suggestive of mild congestive heart failure. Patient was reassessed earlier after the respiratory medications. Based on the chest x-ray also ordered IV Lasix. Patient had a heart rate at this point in 120s and was in A. fib. I have given her IV Cardizem and p.o. Cardizem to control the heart rate. Currently her heart rate is in the 90s. Given the fact that patient has been decompensating over past 2 days and probably has both respiratory and cardiac issue I decided to admit her. Patient is okay with that plan. Discussed with the hospitalist was accepted the patient. Medical Screen Exam Complete: Yes Emergency Medical Condition: Yes Lab Data Result diagrams: 11/01/18 08:12 10/31/18 06:37 Lab Results 10/28/18 10/28/18 10/28/18 Range/Units 20:00 20:00 20:00 WBC 16.3 H (4.0-11.0) th/mm3 RBC 6.28 H (4.00-5.30) mil/mm3 Hgb 15.2 (11.6-15.3) gm/dL Hct 47.0 H (35.0-46.0) % MCV 74.9 L (80.0-100.0) fL MCH 24.3 L (27.0-34.0) pg MCHC 32.4 (32.0-36.0) % RDW 21.5 H (11.6-17.2) % Plt Count 532 H (150-450) th/mm3 MPV 8.6 (7.0-11.0) fL Prelim Diff (Auto) Slide review pending Neut % (Auto) 84.2 H (16.0-70.0) % Lymph % (Auto) 7.7 L (9.0-44.0) % Major % (Auto) 4.2 (0.0-8.0) % Eos % (Auto) 1.3 (0.0-4.0) % Baso % (Auto) 2.6 H (0.0-2.0) % Neut # (Auto) 13.7 H (1.8-7.7) th/mm3 Lymph # (Auto) 1.3 (1.0-4.8) th/mm3 Major # (Auto) 0.7 (0.0-0.9) th/mm3 Eos # (Auto) 0.2 (0.0-0.4) th/mm3 Baso # (Auto) 0.4 H (0.0-0.2) th/mm3 WBC Differential Manual diff final Seg Neuts % (Manual) 86 H (16-70) % Band Neuts % (Manual) 1 (0-6) % Lymphocytes % (Manual) 6 L (9-44) % Monocytes % (Manual) 5 (0-8) % Eosinophils % (Manual) 1 (0-4) % Basophils % (Manual) 1 (0-2) % Abs Neuts (Manual) 14.2 H (1.8-7.7) th/mm3 Differential Comment . Toxic Granulation 1+ H (None) Toxic Vacuolation Present H (None) Platelet Estimate High H (Normal) Platelet Morphology Normal (Normal) Ovalocytes 1+ H (None) Puncture Site Patient Temperature O2 Saturation (90-100) % ABG pH (7.380-7.420) ABG pCO2 (38-42) mmHg ABG pO2 (61-120) mmHg ABG HCO3 (22-26) mmol/L ABG O2 Content (12.0-20.0) Vol % ABG Base Excess (-2-2) mmol/L ABG Methemoglobin (0-2) % Jorge Test Hemoglobin (12.0-16.0) G/DL Carboxyhemoglobin (0-4) % O2 Delivery Device Liter Flow L/M Critical Value Sodium 139 (136-145) meq/L Potassium 4.1 (3.5-5.1) meq/L Chloride 102 (98-107) meq/L Carbon Dioxide 28.4 (21.0-32.0) meq/L Anion Gap 9 (5-15) meq/L BUN 9 (7-18) mg/dL Creatinine 0.68 (0.50-1.00) mg/dL Estimated GFR 84 L (>89) mL/min Random Glucose 99 (74-106) mg/dL Hemoglobin A1c (4.3-6.0) % Calcium 9.0 (8.5-10.1) mg/dL Total Bilirubin 0.7 (0.2-1.0) mg/dL AST 26 (15-37) U/L ALT 38 (10-53) U/L Alkaline Phosphatase 145 H (45-117) U/L Troponin I Less than 0.02 L (0.02-0.05) ng/mL B-Natriuretic Peptide 215 H (0-100) pg/mL Total Protein 6.9 (6.4-8.2) g/dL Albumin 3.6 (3.4-5.0) g/dL Urine Color (Yellw/Straw) Urine Clarity (Clear) Urine pH (5.0-8.5) Ur Specific [place] (1.002-1.035) Urine Protein (Neg-Trace) mg/dL Urine Glucose (UA) (Negative) mg/dL Urine Ketones (Negative) mg/dL Urine Occult Blood (Negative) Urine Nitrate (Negative) Urine Bilirubin (Negative) Urine Urobilinogen (Less than 2) mg/dL Ur Leukocyte Esterase (Negative) Urine RBC (0-3) /hpf Urine WBC (0-5) /hpf Ur Squamous Epith Cells (0-5) /hpf Urine Mucus (Occasional) /lpf Micro UA Comment Ur Microscopic Review Urine Culture Comments 10/28/18 10/29/18 10/29/18 Range/Units 21:00 06:42 06:43 WBC 19.5 H (4.0-11.0) th/mm3 RBC 6.52 H (4.00-5.30) mil/mm3 Hgb 15.4 H (11.6-15.3) gm/dL Hct 49.7 H (35.0-46.0) % MCV 76.2 L (80.0-100.0) fL MCH 23.6 L (27.0-34.0) pg MCHC 30.9 L (32.0-36.0) % RDW 21.8 H (11.6-17.2) % Plt Count 578 H (150-450) th/mm3 MPV 8.3 (7.0-11.0) fL Prelim Diff (Auto) Neut % (Auto) 94.9 H (16.0-70.0) % Lymph % (Auto) 3.3 L (9.0-44.0) % Major % (Auto) 1.0 (0.0-8.0) % Eos % (Auto) 0.1 (0.0-4.0) % Baso % (Auto) 0.7 (0.0-2.0) % Neut # (Auto) 18.5 H (1.8-7.7) th/mm3 Lymph # (Auto) 0.7 L (1.0-4.8) th/mm3 Major # (Auto) 0.2 (0.0-0.9) th/mm3 Eos # (Auto) 0.0 (0.0-0.4) th/mm3 Baso # (Auto) 0.1 (0.0-0.2) th/mm3 WBC Differential . Seg Neuts % (Manual) (16-70) % Band Neuts % (Manual) (0-6) % Lymphocytes % (Manual) (9-44) % Monocytes % (Manual) (0-8) % Eosinophils % (Manual) (0-4) % Basophils % (Manual) (0-2) % Abs Neuts (Manual) (1.8-7.7) th/mm3 Differential Comment Auto diff final Toxic Granulation (None) Toxic Vacuolation (None) Platelet Estimate (Normal) Platelet Morphology (Normal) Ovalocytes (None) Puncture Site Patient Temperature O2 Saturation (90-100) % ABG pH (7.380-7.420) ABG pCO2 (38-42) mmHg ABG pO2 (61-120) mmHg ABG HCO3 (22-26) mmol/L ABG O2 Content (12.0-20.0) Vol % ABG Base Excess (-2-2) mmol/L ABG Methemoglobin (0-2) % Joreg Test Hemoglobin (12.0-16.0) G/DL Carboxyhemoglobin (0-4) % O2 Delivery Device Liter Flow L/M Critical Value Sodium 138 (136-145) meq/L Potassium 3.9 (3.5-5.1) meq/L Chloride 101 (98-107) meq/L Carbon Dioxide 26.8 (21.0-32.0) meq/L Anion Gap 10 (5-15) meq/L BUN 10 (7-18) mg/dL Creatinine 0.72 (0.50-1.00) mg/dL Estimated GFR 79 L (>89) mL/min Random Glucose 210 H D (74-106) mg/dL Hemoglobin A1c (4.3-6.0) % Calcium 9.3 (8.5-10.1) mg/dL Total Bilirubin (0.2-1.0) mg/dL AST (15-37) U/L ALT (10-53) U/L Alkaline Phosphatase (45-117) U/L Troponin I (0.02-0.05) ng/mL B-Natriuretic Peptide (0-100) pg/mL Total Protein (6.4-8.2) g/dL Albumin (3.4-5.0) g/dL Urine Color Yellow (Yellw/Straw) Urine Clarity Clear (Clear) Urine pH 7.0 (5.0-8.5) Ur Specific [place] 1.012 (1.002-1.035) Urine Protein Negative (Neg-Trace) mg/dL Urine Glucose (UA) 50 (Negative) mg/dL Urine Ketones Negative (Negative) mg/dL Urine Occult Blood Negative (Negative) Urine Nitrate Negative (Negative) Urine Bilirubin Negative (Negative) Urine Urobilinogen Less than 2 (Less than 2) mg/dL Ur Leukocyte Esterase Negative (Negative) Urine RBC 1 (0-3) /hpf Urine WBC 5 (0-5) /hpf Ur Squamous Epith Cells <1 (0-5) /hpf Urine Mucus Few H (Occasional) /lpf Micro UA Comment Culture not ind Ur Microscopic Review Not Reportable Urine Culture Comments Culture not ind 10/30/18 10/30/18 10/30/18 Range/Units 06:43 06:43 06:43 WBC 28.5 H (4.0-11.0) th/mm3 RBC 5.86 H (4.00-5.30) mil/mm3 Hgb 14.3 (11.6-15.3) gm/dL Hct 44.1 (35.0-46.0) % MCV 75.3 L (80.0-100.0) fL MCH 24.4 L (27.0-34.0) pg MCHC 32.4 (32.0-36.0) % RDW 22.0 H (11.6-17.2) % Plt Count 600 H (150-450) th/mm3 MPV 8.5 (7.0-11.0) fL Prelim Diff (Auto) Neut % (Auto) (16.0-70.0) % Lymph % (Auto) (9.0-44.0) % Major % (Auto) (0.0-8.0) % Eos % (Auto) (0.0-4.0) % Baso % (Auto) (0.0-2.0) % Neut # (Auto) (1.8-7.7) th/mm3 Lymph # (Auto) (1.0-4.8) th/mm3 Major # (Auto) (0.0-0.9) th/mm3 Eos # (Auto) (0.0-0.4) th/mm3 Baso # (Auto) (0.0-0.2) th/mm3 WBC Differential Seg Neuts % (Manual) (16-70) % Band Neuts % (Manual) (0-6) % Lymphocytes % (Manual) (9-44) % Monocytes % (Manual) (0-8) % Eosinophils % (Manual) (0-4) % Basophils % (Manual) (0-2) % Abs Neuts (Manual) (1.8-7.7) th/mm3 Differential Comment Toxic Granulation (None) Toxic Vacuolation (None) Platelet Estimate (Normal) Platelet Morphology (Normal) Ovalocytes (None) Puncture Site Patient Temperature O2 Saturation (90-100) % ABG pH (7.380-7.420) ABG pCO2 (38-42) mmHg ABG pO2 (61-120) mmHg ABG HCO3 (22-26) mmol/L ABG O2 Content (12.0-20.0) Vol % ABG Base Excess (-2-2) mmol/L ABG Methemoglobin (0-2) % Jorge Test Hemoglobin (12.0-16.0) G/DL Carboxyhemoglobin (0-4) % O2 Delivery Device Liter Flow L/M Critical Value Sodium 138 (136-145) meq/L Potassium 3.6 (3.5-5.1) meq/L Chloride 99 (98-107) meq/L Carbon Dioxide 30.7 (21.0-32.0) meq/L Anion Gap 8 (5-15) meq/L BUN 18 (7-18) mg/dL Creatinine 0.66 (0.50-1.00) mg/dL Estimated GFR 87 L (>89) mL/min Random Glucose 198 H (74-106) mg/dL Hemoglobin A1c 6.9 H (4.3-6.0) % Calcium 9.0 (8.5-10.1) mg/dL Total Bilirubin (0.2-1.0) mg/dL AST (15-37) U/L ALT (10-53) U/L Alkaline Phosphatase (45-117) U/L Troponin I (0.02-0.05) ng/mL B-Natriuretic Peptide (0-100) pg/mL Total Protein (6.4-8.2) g/dL Albumin (3.4-5.0) g/dL Urine Color (Yellw/Straw) Urine Clarity (Clear) Urine pH (5.0-8.5) Ur Specific [place] (1.002-1.035) Urine Protein (Neg-Trace) mg/dL Urine Glucose (UA) (Negative) mg/dL Urine Ketones (Negative) mg/dL Urine Occult Blood (Negative) Urine Nitrate (Negative) Urine Bilirubin (Negative) Urine Urobilinogen (Less than 2) mg/dL Ur Leukocyte Esterase (Negative) Urine RBC (0-3) /hpf Urine WBC (0-5) /hpf Ur Squamous Epith Cells (0-5) /hpf Urine Mucus (Occasional) /lpf Micro UA Comment Ur Microscopic Review Urine Culture Comments 10/31/18 10/31/18 10/31/18 Range/Units 06:37 06:37 16:18 WBC 28.1 H (4.0-11.0) th/mm3 RBC 6.03 H (4.00-5.30) mil/mm3 Hgb 14.9 (11.6-15.3) gm/dL Hct 45.7 (35.0-46.0) % MCV 75.7 L (80.0-100.0) fL MCH 24.7 L (27.0-34.0) pg MCHC 32.6 (32.0-36.0) % RDW 22.3 H (11.6-17.2) % Plt Count 634 H (150-450) th/mm3 MPV 7.8 (7.0-11.0) fL Prelim Diff (Auto) Neut % (Auto) 90.5 H (16.0-70.0) % Lymph % (Auto) 5.9 L (9.0-44.0) % Major % (Auto) 3.1 (0.0-8.0) % Eos % (Auto) 0.3 (0.0-4.0) % Baso % (Auto) 0.2 (0.0-2.0) % Neut # (Auto) 25.5 H (1.8-7.7) th/mm3 Lymph # (Auto) 1.7 (1.0-4.8) th/mm3 Major # (Auto) 0.9 (0.0-0.9) th/mm3 Eos # (Auto) 0.1 (0.0-0.4) th/mm3 Baso # (Auto) 0.1 (0.0-0.2) th/mm3 WBC Differential . Seg Neuts % (Manual) (16-70) % Band Neuts % (Manual) (0-6) % Lymphocytes % (Manual) (9-44) % Monocytes % (Manual) (0-8) % Eosinophils % (Manual) (0-4) % Basophils % (Manual) (0-2) % Abs Neuts (Manual) (1.8-7.7) th/mm3 Differential Comment Auto diff final Toxic Granulation (None) Toxic Vacuolation (None) Platelet Estimate (Normal) Platelet Morphology (Normal) Ovalocytes (None) Puncture Site Left radial Patient Temperature 98.6 O2 Saturation 92 (90-100) % ABG pH 7.44 H (7.380-7.420) ABG pCO2 47 H (38-42) mmHg ABG pO2 72 (61-120) mmHg ABG HCO3 31 H (22-26) mmol/L ABG O2 Content 20.1 H (12.0-20.0) Vol % ABG Base Excess 6.9 H (-2-2) mmol/L ABG Methemoglobin 1.1 (0-2) % Jorge Test Present Hemoglobin 15.5 (12.0-16.0) G/DL Carboxyhemoglobin 1.3 (0-4) % O2 Delivery Device Nasal cannula Liter Flow 2.00 L/M Critical Value No Sodium 136 (136-145) meq/L Potassium 3.8 (3.5-5.1) meq/L Chloride 98 (98-107) meq/L Carbon Dioxide 30.6 (21.0-32.0) meq/L Anion Gap 7 (5-15) meq/L BUN 19 H (7-18) mg/dL Creatinine 0.72 (0.50-1.00) mg/dL Estimated GFR 79 L (>89) mL/min Random Glucose 126 H (74-106) mg/dL Hemoglobin A1c (4.3-6.0) % Calcium 9.2 (8.5-10.1) mg/dL Total Bilirubin (0.2-1.0) mg/dL AST (15-37) U/L ALT (10-53) U/L Alkaline Phosphatase (45-117) U/L Troponin I (0.02-0.05) ng/mL B-Natriuretic Peptide (0-100) pg/mL Total Protein (6.4-8.2) g/dL Albumin (3.4-5.0) g/dL Urine Color (Yellw/Straw) Urine Clarity (Clear) Urine pH (5.0-8.5) Ur Specific [place] (1.002-1.035) Urine Protein (Neg-Trace) mg/dL Urine Glucose (UA) (Negative) mg/dL Urine Ketones (Negative) mg/dL Urine Occult Blood (Negative) Urine Nitrate (Negative) Urine Bilirubin (Negative) Urine Urobilinogen (Less than 2) mg/dL Ur Leukocyte Esterase (Negative) Urine RBC (0-3) /hpf Urine WBC (0-5) /hpf Ur Squamous Epith Cells (0-5) /hpf Urine Mucus (Occasional) /lpf Micro UA Comment Ur Microscopic Review Urine Culture Comments 11/01/18 Range/Units 08:12 WBC 19.8 H (4.0-11.0) th/mm3 RBC 6.22 H (4.00-5.30) mil/mm3 Hgb 14.8 (11.6-15.3) gm/dL Hct 47.5 H (35.0-46.0) % MCV 76.4 L (80.0-100.0) fL MCH 23.8 L (27.0-34.0) pg MCHC 31.2 L (32.0-36.0) % RDW 21.8 H (11.6-17.2) % Plt Count 524 H (150-450) th/mm3 MPV 8.0 (7.0-11.0) fL Prelim Diff (Auto) Neut % (Auto) 90.5 H (16.0-70.0) % Lymph % (Auto) 4.4 L (9.0-44.0) % Major % (Auto) 4.1 (0.0-8.0) % Eos % (Auto) 0.4 (0.0-4.0) % Baso % (Auto) 0.6 (0.0-2.0) % Neut # (Auto) 17.9 H (1.8-7.7) th/mm3 Lymph # (Auto) 0.9 L (1.0-4.8) th/mm3 Major # (Auto) 0.8 (0.0-0.9) th/mm3 Eos # (Auto) 0.1 (0.0-0.4) th/mm3 Baso # (Auto) 0.1 (0.0-0.2) th/mm3 WBC Differential . Seg Neuts % (Manual) (16-70) % Band Neuts % (Manual) (0-6) % Lymphocytes % (Manual) (9-44) % Monocytes % (Manual) (0-8) % Eosinophils % (Manual) (0-4) % Basophils % (Manual) (0-2) % Abs Neuts (Manual) (1.8-7.7) th/mm3 Differential Comment Auto diff final Toxic Granulation (None) Toxic Vacuolation (None) Platelet Estimate (Normal) Platelet Morphology (Normal) Ovalocytes (None) Puncture Site Patient Temperature O2 Saturation (90-100) % ABG pH (7.380-7.420) ABG pCO2 (38-42) mmHg ABG pO2 (61-120) mmHg ABG HCO3 (22-26) mmol/L ABG O2 Content (12.0-20.0) Vol % ABG Base Excess (-2-2) mmol/L ABG Methemoglobin (0-2) % Jorge Test Hemoglobin (12.0-16.0) G/DL Carboxyhemoglobin (0-4) % O2 Delivery Device Liter Flow L/M Critical Value Sodium (136-145) meq/L Potassium (3.5-5.1) meq/L Chloride (98-107) meq/L Carbon Dioxide (21.0-32.0) meq/L Anion Gap (5-15) meq/L BUN (7-18) mg/dL Creatinine (0.50-1.00) mg/dL Estimated GFR (>89) mL/min Random Glucose (74-106) mg/dL Hemoglobin A1c (4.3-6.0) % Calcium (8.5-10.1) mg/dL Total Bilirubin (0.2-1.0) mg/dL AST (15-37) U/L ALT (10-53) U/L Alkaline Phosphatase (45-117) U/L Troponin I (0.02-0.05) ng/mL B-Natriuretic Peptide (0-100) pg/mL Total Protein (6.4-8.2) g/dL Albumin (3.4-5.0) g/dL Urine Color (Yellw/Straw) Urine Clarity (Clear) Urine pH (5.0-8.5) Ur Specific [place] (1.002-1.035) Urine Protein (Neg-Trace) mg/dL Urine Glucose (UA) (Negative) mg/dL Urine Ketones (Negative) mg/dL Urine Occult Blood (Negative) Urine Nitrate (Negative) Urine Bilirubin (Negative) Urine Urobilinogen (Less than 2) mg/dL Ur Leukocyte Esterase (Negative) Urine RBC (0-3) /hpf Urine WBC (0-5) /hpf Ur Squamous Epith Cells (0-5) /hpf Urine Mucus (Occasional) /lpf Micro UA Comment Ur Microscopic Review Urine Culture Comments Imaging Data Radiologist's impression: Chest X-Ray 10/28/18 19:51 CONCLUSION: 1. Cardiomegaly with pulmonary vascular congestion. 2. Likely small bilateral pleural effusions with associated airspace disease in the lower lung zones, right greater than left. Foot X-Ray 10/29/18 00:00 CONCLUSION: Stable plain films of left foot compared to the prior examination. There continues to be degenerative changes especially at the first metatarsal- phalangeal joint and a small heel spur. Foot MRI 10/30/18 00:00 CONCLUSION: 1. There is no evidence to indicate a stress fracture involving the foot. 2. There are degenerative changes involving the first metatarsal-phalangeal joint as well as the PIP and DIP joints characteristic for patient's age. 3. Nonspecific soft tissue swelling in the subcutaneous soft tissues along the dorsum of the midfoot. Chest X-Ray 10/31/18 00:00 CONCLUSION: 1. Improved aeration of the right lung base compared with previous examination. 2. Tiny right pleural effusion. 3. Cardiomegaly. 4. Stable right apical fibrotic scarring. 5. Stable COPD. ECG Data Attestation: I personally reviewed and interpreted this ECG as follows: Interpretation: Twelve-lead EKG was reviewed by me. A. fib, normal axis. Heart rate of 89 bpm. Discharge Plan Discharge Disposition Patient Disposition: ED Admit(ED Internal Use Only) Discharge Condition Condition: Stable Discharge Order Discharge Orders: Discharge Order (Routine); Ordered 11/01/18 Ordered By: Raman Sauceda ED Use Only Admit Order (Routine); Ordered 10/28/18 Ordered By: Benja Krishnamurthy Discharge Details Anticipated Discharge Date: 11/01/18 Discharge Comment: Please have registered nurse hh case manager go over home health care per patient request Physicians Team ED Provider: Benja Krishnamurthy Primary Care Provider: Pawel Rodriguez Attending Provider: Raman Sauceda Other Providers: Ambrose Boggs ; Ruel Street ; [facility],Agency Status ED Status: Left Department Discharge Information Discharge Date/Time: 10/29/18 00:14
[2018-10-28] MEDS ORDERED: Acetaminophen 325 MG Tablet PO PRN (23:38)
[2018-10-28] MEDS ORDERED: Bisacodyl 10 MG Supp RECTAL PRN (23:38)
[2018-10-28] MEDS ORDERED: FLOVENT INH SCH (23:45)
[2018-10-28] MEDS ORDERED: Heparin - SQ 10,000 UNITS/ML Vial SQ SCH (23:45)
[2018-10-28] MEDS ORDERED: Umeclindinium 62.5 MCG/Vilanterol 25 MCG Inhaler INH SCH (23:45)
[2018-10-28] MEDS ORDERED: [UNRECOGNIZED DRUG - OTHER] INH SCH (23:45)
--- NOTE | 2018-10-28 23:52 | P.HP ---
History of Present Illness Service: [facility] Primary Care Physician: Pawel Rodriguez MD History of Present Illness: 77-year-old female with past medical history significant for newly diagnosed atrial fibrillation anticoagulated on Eliquis, hypertension, hyperlipidemia, COPD on 2 L nasal cannula, history of breast cancer and history of brain aneurysm which has been stable for 7 years presents to the emergency department for the evaluation of shortness of breath. The patient reports her symptoms started last night and worsened throughout the day today. She endorses fatigue and weakness with accompanying nausea. No emesis. The patient reports palpitations and a home heart rate of 115. She denies any chest pain. No abdominal pain. No diarrhea. No fever/chills. No focal neurologic deficits. Inpatient Certification: I certify that the inpatient services were ordered in accordance with Medicare regulations governing the order. This includes certification that hospital inpatient services are reasonable and necessary and in the case of services not specified as inpatient-only under 42 CFR 419.22(n), that they are appropriately provided as inpatient services in accordance to with the 2-midnight benchmark under 43 CFR 412.3(e) Estimated Total Length of Stay (Days): 2 Plans for Post Hospital Care: Not yet determined Review of Systems All other systems reviewed negative except as stated in [facility] - History History Provided By: Patient, Iron Worker Foreman / EMT - Medical History Medical History: Medical History (Last Updated 10/28/18 @ 23:44 by Darshana Delacruz MD) Atrial fibrillation History of breast cancer Hyperlipidemia COPD (chronic obstructive pulmonary disease) HTN (hypertension) - Surgical History Surgical History: Surgical History (Last Reviewed 10/28/18 @ 21:46 by Benja Krishnamurthy MD) H/O mastectomy - Family History Family History: Family History (Last Updated 10/28/18 @ 23:45 by Darshana Delacruz MD) Other Coronary artery disease Diabetes mellitus - Social History I have reviewed the patient's Social History: Yes - Tobacco History Smoking Status: Former smoker Tobacco Type: Cigarettes - Alcohol History How Often Do You Have a Drink Containing Alcohol: Monthly or less - Substance Use History Substance History: No History of Abuse - Travel History History of Recent Travel: No Recent Travel in the [place] Within the Last 8 Weeks: No Recent Travel Out of the Country Within the Last 8 Weeks: No - Immunization History Tetanus Immunization: Unsure Medications and Allergies Allergies Allergy/AdvReac Type Severity Reaction Status Date / Time No Known Allergies Allergy Verified 10/28/18 19:00 Home Medications Medication Instructions Recorded Confirmed Type atorvastatin 10 mg PO DAILY 09/24/18 10/28/18 History calcium carbonate-vitamin D3 1 tab PO QAM 09/24/18 10/28/18 History [Calcium 600 + D(3)] fluticasone 1 inh INHALATION Q12H 09/24/18 10/28/18 History letrozole 2.5 mg PO DAILY 09/24/18 10/28/18 History losartan 50 mg PO BID 09/24/18 10/28/18 History magnesium oxide 40 mg PO DAILY 09/24/18 10/28/18 History nebivolol [Bystolic] 5 mg PO DAILY 09/24/18 10/28/18 History nitroglycerin 0.4 mg SUBLINGUAL Q5-15M PRN 09/24/18 10/28/18 History omega 0-jli-xsc-fish oil [Fish Oil] 1,200 mg PO DAILY 09/24/18 10/28/18 History pantoprazole [Protonix] 40 mg PO DAILY 09/24/18 10/28/18 History polyethylene glycol 3350 [Miralax] 17 g PO DAILY PRN 09/24/18 10/28/18 History umeclidinium-vilanterol [Anoro 1 inh INHALATION Q24H 09/24/18 10/28/18 History Ellipta] wheat dextrin [Benefiber Sugar 1 packet PO DAILY 09/24/18 10/28/18 History Free (dextrin)] Exam Vital signs: Vital Signs 10/28/18 19:01 10/28/18 19:08 10/28/18 20:05 Temperature 97.5 F L Pulse Rate 95 H 90 98 H Respiratory Rate 22 20 18 Blood Pressure 218/104 H 203/97 H Pulse Oximetry 95 96 10/28/18 20:15 10/28/18 21:36 10/28/18 21:37 Temperature Pulse Rate 96 H 86 87 Respiratory Rate 18 20 Blood Pressure 134/64 Pulse Oximetry 92 L 92 L 10/28/18 21:49 10/28/18 23:10 Temperature Pulse Rate 85 Respiratory Rate 18 Blood Pressure 132/85 Pulse Oximetry 96 92 L Intake & Output 10/28/18 10/28/18 10/29/18 06:59 18:59 06:59 Weight 72.575 kg Narrative: Gen.: No acute distress Head: Normocephalic. Atraumatic. EENT: Pupils equal round and reactive to light. Nose without drainage. Airway intact. Throat without injection. Cardiovascular: Regular rate and irregularly irregular rhythm. No murmurs, rubs or gallops. Respiratory: Lungs clear to auscultation bilaterally. No wheezes or rhonchi. Poor air movement. Abdomen: Soft, nontender, nondistended. No peritoneal signs. Musculoskeletal: No gross deformities. No edema. Skin: No obvious rashes or erythema. Neuro: Sensory and motor grossly intact. Cranial nerves II through XII grossly intact. Results - Labs CBC & Chem 7: 10/28/18 20:00 10/28/18 20:00 Labs: Laboratory Results - last 24 hr 10/28/18 10/28/18 10/28/18 20:00 20:00 20:00 WBC 16.3 H RBC 6.28 H Hgb 15.2 Hct 47.0 H MCV 74.9 L MCH 24.3 L MCHC 32.4 RDW 21.5 H Plt Count 532 H MPV 8.6 Prelim Diff (Auto) Slide review pending Neut % (Auto) 84.2 H Lymph % (Auto) 7.7 L [place] % (Auto) 4.2 Eos % (Auto) 1.3 Baso % (Auto) 2.6 H Neut # (Auto) 13.7 H Lymph # (Auto) 1.3 [place] # (Auto) 0.7 Eos # (Auto) 0.2 Baso # (Auto) 0.4 H WBC Differential Manual diff final Seg Neuts % (Manual) 86 H Band Neuts % (Manual) 1 Lymphocytes % (Manual) 6 L Monocytes % (Manual) 5 Eosinophils % (Manual) 1 Basophils % (Manual) 1 Abs Neuts (Manual) 14.2 H Differential Comment . Toxic Granulation 1+ H Toxic Vacuolation Present H Platelet Estimate High H Platelet Morphology Normal Ovalocytes 1+ H Sodium 139 Potassium 4.1 Chloride 102 Carbon Dioxide 28.4 Anion Gap 9 BUN 9 Creatinine 0.68 Estimated GFR 84 L Random Glucose 99 Calcium 9.0 Total Bilirubin 0.7 AST 26 ALT 38 Alkaline Phosphatase 145 H Troponin I Less than 0.02 L B-Natriuretic Peptide 215 H Total Protein 6.9 Albumin 3.6 Urine Color Urine Clarity Urine pH Ur Specific [place] Urine Protein Urine Glucose (UA) Urine Ketones Urine Occult Blood Urine Nitrate Urine Bilirubin Urine Urobilinogen Ur Leukocyte Esterase Urine RBC Urine WBC Ur Squamous Epith Cells Urine Mucus Micro UA Comment Ur Microscopic Review Urine Culture Comments 10/28/18 21:00 WBC RBC Hgb Hct MCV MCH MCHC RDW Plt Count MPV Prelim Diff (Auto) Neut % (Auto) Lymph % (Auto) [place] % (Auto) Eos % (Auto) Baso % (Auto) Neut # (Auto) Lymph # (Auto) [place] # (Auto) Eos # (Auto) Baso # (Auto) WBC Differential Seg Neuts % (Manual) Band Neuts % (Manual) Lymphocytes % (Manual) Monocytes % (Manual) Eosinophils % (Manual) Basophils % (Manual) Abs Neuts (Manual) Differential Comment Toxic Granulation Toxic Vacuolation Platelet Estimate Platelet Morphology Ovalocytes Sodium Potassium Chloride Carbon Dioxide Anion Gap BUN Creatinine Estimated GFR Random Glucose Calcium Total Bilirubin AST ALT Alkaline Phosphatase Troponin I B-Natriuretic Peptide Total Protein Albumin Urine Color Yellow Urine Clarity Clear Urine pH 7.0 Ur Specific [place] 1.012 Urine Protein Negative Urine Glucose (UA) 50 Urine Ketones Negative Urine Occult Blood Negative Urine Nitrate Negative Urine Bilirubin Negative Urine Urobilinogen Less than 2 Ur Leukocyte Esterase Negative Urine RBC 1 Urine WBC 5 Ur Squamous Epith Cells <1 Urine Mucus Few H Micro UA Comment Culture not ind Ur Microscopic Review Not Reportable Urine Culture Comments Culture not ind - Imaging Impressions Chest X-Ray 10/28/18 19:51 CONCLUSION: 1. Cardiomegaly with pulmonary vascular congestion. 2. Likely small bilateral pleural effusions with associated airspace disease in the lower lung zones, right greater than left. Caprini VTE Risk Assessment Caprini VTE Risk Assessment: Moderate/High Risk (score >= 2) Caprini Risk Assessment Model: Point Value = 1 Point Value = 2 Point Value = 3 Point Value = 5 Age 41-60 Minor surgery BMI > 25 kg/m2 Swollen legs Varicose veins or History of unexplained or recurrent spontaneous Oral contraceptives or hormone replacement Sepsis (< 1 month) Serious lung disease, including pneumonia (< 1 month) Abnormal pulmonary function Acute myocardial infarction Congestive heart failure (< 1 month) History of inflammatory bowel disease Medical patient at bed rest Age 61-74 Arthroscopic surgery Major open surgery (> 45 min) Laparoscopic surgery (> 45 min) Malignancy Confined to bed (> 72 hours) Immobilizing plaster cast Central venous access Age >= 75 History of VTE Family history of VTE Factor V Leiden Prothrombin [id number] Lupus anticoagulant Anticardiolipin antibodies Elevated serum homocysteine Heparin-induced thrombocytopenia Other congenital or acquired thrombophilia Stroke (< 1 month) Elective arthroplasty Hip, pelvis, or leg fracture Acute spinal cord injury (< 1 month) Prophylaxis Regimen: Total Risk Factor Score Risk Level Prophylaxis Regimen 0-1 Low Early ambulation 2 Moderate Order ONE of the following: *Sequential Compression Device (SCD) *Heparin 5000 units SQ BID 3-4 Higher Order ONE of the following medications: *Heparin 5000 units SQ TID *Enoxaparin/Lovenox 40 mg SQ daily (WT < 150 kg, CrCl > 30 mL/min) *Enoxaparin/Lovenox 30 mg SQ daily (WT < 150 kg, CrCl > 10-29 mL/min) *Enoxaparin/Lovenox 30 mg SQ BID (WT < 150 kg, CrCl > 30 mL/min) AND/OR *Sequential Compression Device (SCD) 5 or more Highest Order ONE of the following medications: *Heparin 5000 units SQ TID (Preferred with Epidurals) *Enoxaparin/Lovenox 40 mg SQ daily (WT < 150 kg, CrCl > 30 mL/min) *Enoxaparin/Lovenox 30 mg SQ daily (WT < 150 kg, CrCl > 10-29 mL/min) *Enoxaparin/Lovenox 30 mg SQ BID (WT < 150 kg, CrCl > 30 mL/min) AND *Sequential Compression Device (SCD) Assessment and Plan - Plan Assessment/plan: 1. Atrial fibrillation EKG shows A. fib without signs of ischemia, personally reviewed Status post p.o./IV diltiazem with subsequent rate control Monitor on telemetry, will start diltiazem drip if needed Cardiology consulted, appreciate assistance Continue home Bystolic and anticoagulation with Eliquis 2. Shortness of breath/COPD exacerbation/? CHF Echo done on 09/24/18 shows an EF of 50-55% Chest x-ray significant for cardiomegaly and pulmonary vascular congestion BNP 215 IV Lasix Cardiology consulted as above Solu-Medrol Duo nebs Continue supplemental oxygen 3. Hypertension/hyperlipidemia Continue home medications 4. Left foot pain Patient reports traumatic event where she kicked a chair 3 view foot x-ray demonstrated no fracture on 10/19/18 PT FEN Cardiac diet Electrolytes: Monitor and replete as needed Callie
[2018-10-29] MEDS ORDERED: MethylPREDNISolone Sod Succinate Inj 40 MG/ML Vial IV.PUSH SCH (06:00)
[2018-10-29 07:18] LABS: Baso # (Auto) 0.1 th/mm3 (0.0-0.2); Baso % (Auto) 0.7 % (0.0-2.0); Eos % (Auto) 0.1 % (0.0-4.0); Hematocrit 49.7 % (35.0-46.0); Hemoglobin 15.4 gm/dL (11.6-15.3); Lymph # (Auto) 0.7 th/mm3 (1.0-4.8); Lymph % (Auto) 3.3 % (9.0-44.0); Mean Corpuscular Hemoglobin 23.6 pg (27.0-34.0); Mean Corpuscular Volume 76.2 fL (80.0-100.0); Mean Platelet Volume 8.3 fL (7.0-11.0); Mono # (Auto) 0.2 th/mm3 (0.0-0.9); Neut # (Auto) 18.5 th/mm3 (1.8-7.7); Neut % (Auto) 94.9 % (16.0-70.0); Platelet Count 578 th/mm3 (150-450); Red Blood Count 6.52 mil/mm3 (4.00-5.30); Red Cell Distribution Width 21.8 % (11.6-17.2); White Blood Count 19.5 th/mm3 (4.0-11.0)
[2018-10-29 07:29] LABS: Mean Corpuscular HGB Conc 30.9 % (32.0-36.0)
[2018-10-29 07:54] LABS: Calcium 9.3 mg/dL (8.5-10.1); Carbon Dioxide 26.8 meq/L (21.0-32.0); Potassium 3.9 meq/L (3.5-5.1)
[2018-10-29] MEDS: Senna/Docusate Sodium 8.6/50 MG Tablet PO SCH ×2 (08:31→21:31)
[2018-10-29] MEDS ORDERED: MAGNESIUM OXIDE PO SCH (09:00)
[2018-10-29] MEDS ORDERED: ALPRAZolam 0.25 MG Tablet PO PRN (09:20)
--- NOTE | 2018-10-29 09:21 | P.PN ---
Subjective Interval history: Follow up for Afib RVR, CHF, COPD: Pt. seen and examined, endorses SOB with activity but better today with short distance. No CP, no palpitation. Tele reviewed, Afib, HR up to 130s at times. C/O inc. left foot pain, has not been walking much. Uses ortho shoe. No fever. Physical Exam Vital signs: Vital Signs 10/28/18 19:01 10/28/18 19:08 10/28/18 20:05 Temperature 97.5 F L Pulse Rate 95 H 90 98 H Respiratory Rate 22 20 18 Blood Pressure 218/104 H 203/97 H Pulse Oximetry 95 96 10/28/18 20:15 10/28/18 21:36 10/28/18 21:37 Temperature Pulse Rate 96 H 86 87 Respiratory Rate 18 20 Blood Pressure 134/64 Pulse Oximetry 92 L 92 L 10/28/18 21:49 10/28/18 23:10 10/29/18 00:26 Temperature Pulse Rate 85 76 Respiratory Rate 18 Blood Pressure 132/85 Pulse Oximetry 96 92 L 10/29/18 04:00 Temperature 97.9 F Pulse Rate 74 Respiratory Rate 16 Blood Pressure 119/66 Pulse Oximetry 93 L Intake & Output 10/28/18 10/29/18 10/29/18 18:59 06:59 18:59 Weight 72.575 kg Narrative: Gen.: 77 year old WDWN elderly female, NAD Head: Normocephalic. Atraumatic. EENT: Pupils equal round and reactive to light. Nose without drainage. Airway intact. Throat without injection. Cardiovascular: Regular rate and irregularly irregular rhythm. No murmurs, rubs or gallops. Respiratory: Essentially clear, poor inspiratory effort. Abdomen: Soft, nontender, nondistended. No peritoneal signs. Musculoskeletal: Intact ROM. Trace ankle edema bilat. Left foot mild edema. Fifth ray with bruising, tender to ROM. Pedal pulses 2+ bilat Skin: No obvious rashes or erythema. Neuro: Sensory and motor grossly intact. Cranial nerves II through XII grossly intact. Results - Labs CBC & Chem 7: 10/29/18 06:42 10/29/18 06:43 Laboratory Results - last 24 hr 10/28/18 10/28/18 10/28/18 20:00 20:00 20:00 WBC 16.3 H RBC 6.28 H Hgb 15.2 Hct 47.0 H MCV 74.9 L MCH 24.3 L MCHC 32.4 RDW 21.5 H Plt Count 532 H MPV 8.6 Prelim Diff (Auto) Slide review pending Neut % (Auto) 84.2 H Lymph % (Auto) 7.7 L [place] % (Auto) 4.2 Eos % (Auto) 1.3 Baso % (Auto) 2.6 H Neut # (Auto) 13.7 H Lymph # (Auto) 1.3 [place] # (Auto) 0.7 Eos # (Auto) 0.2 Baso # (Auto) 0.4 H WBC Differential Manual diff final Seg Neuts % (Manual) 86 H Band Neuts % (Manual) 1 Lymphocytes % (Manual) 6 L Monocytes % (Manual) 5 Eosinophils % (Manual) 1 Basophils % (Manual) 1 Abs Neuts (Manual) 14.2 H Differential Comment . Toxic Granulation 1+ H Toxic Vacuolation Present H Platelet Estimate High H Platelet Morphology Normal Ovalocytes 1+ H Sodium 139 Potassium 4.1 Chloride 102 Carbon Dioxide 28.4 Anion Gap 9 BUN 9 Creatinine 0.68 Estimated GFR 84 L Random Glucose 99 Calcium 9.0 Total Bilirubin 0.7 AST 26 ALT 38 Alkaline Phosphatase 145 H Troponin I Less than 0.02 L B-Natriuretic Peptide 215 H Total Protein 6.9 Albumin 3.6 Urine Color Urine Clarity Urine pH Ur Specific [place] Urine Protein Urine Glucose (UA) Urine Ketones Urine Occult Blood Urine Nitrate Urine Bilirubin Urine Urobilinogen Ur Leukocyte Esterase Urine RBC Urine WBC Ur Squamous Epith Cells Urine Mucus Micro UA Comment Ur Microscopic Review Urine Culture Comments 10/28/18 10/29/18 10/29/18 21:00 06:42 06:43 WBC 19.5 H RBC 6.52 H Hgb 15.4 H Hct 49.7 H MCV 76.2 L MCH 23.6 L MCHC 30.9 L RDW 21.8 H Plt Count 578 H MPV 8.3 Prelim Diff (Auto) Neut % (Auto) 94.9 H Lymph % (Auto) 3.3 L [place] % (Auto) 1.0 Eos % (Auto) 0.1 Baso % (Auto) 0.7 Neut # (Auto) 18.5 H Lymph # (Auto) 0.7 L [place] # (Auto) 0.2 Eos # (Auto) 0.0 Baso # (Auto) 0.1 WBC Differential . Seg Neuts % (Manual) Band Neuts % (Manual) Lymphocytes % (Manual) Monocytes % (Manual) Eosinophils % (Manual) Basophils % (Manual) Abs Neuts (Manual) Differential Comment Auto diff final Toxic Granulation Toxic Vacuolation Platelet Estimate Platelet Morphology Ovalocytes Sodium 138 Potassium 3.9 Chloride 101 Carbon Dioxide 26.8 Anion Gap 10 BUN 10 Creatinine 0.72 Estimated GFR 79 L Random Glucose 210 H D Calcium 9.3 Total Bilirubin AST ALT Alkaline Phosphatase Troponin I B-Natriuretic Peptide Total Protein Albumin Urine Color Yellow Urine Clarity Clear Urine pH 7.0 Ur Specific [place] 1.012 Urine Protein Negative Urine Glucose (UA) 50 Urine Ketones Negative Urine Occult Blood Negative Urine Nitrate Negative Urine Bilirubin Negative Urine Urobilinogen Less than 2 Ur Leukocyte Esterase Negative Urine RBC 1 Urine WBC 5 Ur Squamous Epith Cells <1 Urine Mucus Few H Micro UA Comment Culture not ind Ur Microscopic Review Not Reportable Urine Culture Comments Culture not ind - Imaging Impressions Chest X-Ray 10/28/18 19:51 CONCLUSION: 1. Cardiomegaly with pulmonary vascular congestion. 2. Likely small bilateral pleural effusions with associated airspace disease in the lower lung zones, right greater than left. Assessment and Plan - Assessment (1) Atrial fibrillation Code(s): I48.91 - Unspecified atrial fibrillation Status: Acute (2) Left foot pain Code(s): M79.672 - Pain in left foot Status: Acute (3) Acute exacerbation of chronic obstructive pulmonary disease (COPD) Code(s): J44.1 - Chronic obstructive pulmonary disease with (acute) exacerbation Status: Acute - Plan 77-year-old female with past medical history significant for newly diagnosed atrial fibrillation anticoagulated on Eliquis, hypertension, hyperlipidemia, COPD on 2 L nasal cannula, history of breast cancer and history of brain aneurysm which has been stable for 7 years presents to the emergency department for the evaluation of shortness of breath. Recently admitted in September for COPD/PNA. Reported symptoms started last night and worsened throughout the day today. She endorsed fatigue and weakness with accompanying nausea. No emesis. C/O palpitations and a home heart rate of 115. She denied any chest pain. No abdominal pain. No diarrhea. No fever/chills. No focal neurologic deficits. C /O left foot pain, had recent fall. Atrial fibrillation, EKG + afib Status post p.o./IV diltiazem with subsequent rate control (in ED) -continue telemetry monitoring -Cardiology consultation pending -HR remains occ. elevated, up to 130s, will start Cardizem 30 mg PO QID -Continue Bystolic and Eliquis Shortness of breath, likely a combination of COPD exac and mild CHF. Echo done on 09/24/18 shows an EF of 50-55% Chest x-ray significant for cardiomegaly and pulmonary vascular congestion, BNP 215, started on IV Lasix -Cardiology consulted as above -Oct. Solu-Medrol 40 mg IV BID -continue duonebs -Continue supplemental oxygen -change Lasix to 40 mg PO BID Hypertension -continue Cozaar, Bystolic Left foot pain, s/p traumatic event where she kicked a chair 3 view foot x-ray demonstrated no fracture on 10/19/18 -repeat xray -Add [place] 5/325 1 tab po q 6 prn pain -PT eval and treat -wear ortho shoe when out of bed Leukocytosis WBC initially 16.3>>19.5 S/P IV steroids -monitor CBC, fever. Hx breast cancer, bilat mastectomy. Stable, in remission -continue Letrozole Eliquis for DVT prophylaxis Code Status: Full code Discussed Condition With: RN, pt Discharge Planning: Poss dc 1-2 days with [facility] (1) Atrial fibrillation Qualifiers: Atrial fibrillation type: persistent Qualified Code(s): I48.1 - Persistent atrial fibrillation
--- NOTE | 2018-10-29 09:54 | XR ---
EXAM DATE: 10/29/2018 9:46 AM EST AGE/SEX: 77 years / Female INDICATIONS: Left lateral foot pain, no known injury. CLINICAL DATA: This is the patient's subsequent encounter. Patient reports that signs and symptoms h ave been present for 2 weeks and indicates a pain score of 8/10. MEDICAL/SURGICAL HISTORY: None. None. COMPARISON: [facility] [place] 3V, 10/19/2018. . FINDINGS: Bony structures are intact and in normal alignment. There are some degenerative changes especially at the first metatarsal-phalangeal joint. Osseous density is osteopenic. Soft tissues are unremarkable. No radiopaque foreign bodies seen. There is a heel spur on the plantar surface of the calcaneus. C ompared to the prior study there've been no new or significant changes. CONCLUSION: Stable plain films of left foot compared to the prior examination. There continues to be degenerative changes especially at the first metatarsal-phalangeal joint and a small heel spur. Electronically signed by: Guille Cruz MD Board Certified Radiologist 10/29/2018 9:52 AM EST
[2018-10-29] MEDS: LETROZOLE 2.5 MG PO SCH (10:45)
[2018-10-29] MEDS: Umeclindinium 62.5 MCG/Vilanterol 25 MCG Inhaler INH SCH (10:46)
[2018-10-29] MEDS: dilTIAZem 30 MG Tablet PO SCH ×3 (13:14→21:31)
--- NOTE | 2018-10-29 13:54 | P.DCO ---
- Diagnosis (1) Atrial fibrillation Status: Acute (2) Left foot pain Status: Acute - Physical Therapy Order: Evaluate and treat - Home Health Nursing Order: Medical education, Oxygen administration education, Nursing assessment with vital signs - Case Management Consult Case Management Consult-Home Health: Yes - Certification I have seen patient Rajni Randolph on 10/29/18. My clinical findings support the need for the requested home health care services because: recent fall with left foot injury, difficulty ambulating, sob with activity. Patient has SOB, Deconditioned with increased weakness, High risk of falls I certify that my clinical findings support that this patient is homebound because: Hx COPD - exertion dyspnea/weakness, Unsteady gait/balance, Need for psychosocial assistance
[2018-10-29] MEDS: Furosemide 40 MG Tablet PO SCH (17:15)
--- NOTE | 2018-10-29 18:40 | ECG ---
Date Performed: 10/28/2018 Time Performed: 19:19:50 PTAGE: 77 years EKG: ATRIAL FIBRILLATION ABNORMAL RHYTHM ECG PREVIOUS TRACING : 09/26/2018 10.13 Compared to previous tracing, ST-T changes resolved DOCTOR: Germán Gale Interpretating Date/Time 10/29/2018 18:39:14
--- NOTE | 2018-10-29 20:51 | MB ---
cc: Vel Varghese DO DATE: 10/29/2018 REASON FOR CONSULTATION: Atrial fibrillation. HISTORY OF PRESENT ILLNESS: Rajni Randolph is a pleasant 77-year-old female who sees my partner Dr. Street in the office and presented to [facility] due to shortness of breath and fatigue. She was recently here at the end of September and had a cardiac catheterization which showed mild coronary artery disease. She was found to have new onset atrial fibrillation and started on Eliquis. She also received diltiazem during her hospitalization and looks to be that she was supposed to be discharged on it but was not. She went home, and she hit her toe and came into the emergency room at that time and had some ecchymosis of her left toes. She was then discharged, and she has noted since that time that she has had more extensive shortness of breath. Her biggest complaint really is just fatigue and overall weakness. At home, she noticed her heart rates were in the 110-120 range, and so she came to the emergency room. She denies any chest pain. Since that time, she has been started on Cardizem, and her heart rates are better controlled. PAST MEDICAL HISTORY: 1. Atrial fibrillation. 2. Breast cancer. 3. Hyperlipidemia. 4. COPD. 5. Hypertension. PAST SURGICAL HISTORY: 1. Mastectomy. 2. Cardiac catheterization (09/27/2018): Left main normal. LAD, 35% mid. Left circumflex 10%. RCA 50% proximal and 50% distal (IFR 1.0 showing nonsignificant stenosis). ALLERGIES: NO KNOWN DRUG ALLERGIES. MEDICATIONS: 1. Bystolic 5 mg daily. 2. Magnesium 400 mg daily. 3. Lipitor 10 mg daily. 4. Protonix 40 mg daily. 5. Losartan 50 mg b.i.d. 6. Nitro sublingual as needed. 7. Fluconazole 50 mcg every 12 hours. 8. Anoro Ellipta daily. 9. Letrozole 2.5 mg daily. 10. Eliquis 5 mg b.i.d. 11. Trelegy Ellipta daily. FAMILY HISTORY: Denies premature coronary artery disease or sudden cardiac within the family. SOCIAL HISTORY: The patient is a former smoker. Denies alcohol or drug abuse. REVIEW OF SYSTEMS: Fourteen systems were reviewed including osteopathic. Pertinent positives and negatives above, otherwise negative. PHYSICAL EXAMINATION: VITAL SIGNS: Temperature 98.0, heart rate 96, blood pressure 127/70, respirations 20, pulse oximetry 95% on 2 L. GENERAL: The patient appears well, in no acute distress. Alert, awake, and oriented x3. HEENT: Extraocular muscles intact. Mucous membranes moist. NECK: Supple. No JVD at 45 degrees. No carotid bruits heard bilaterally. Carotid upstroke is brisk in nature. HEART: Irregularly irregular. Positive first and second heart sounds with no known murmurs, gallops, or rubs. LUNGS: Decreased breath sounds at the bases, but no overt wheezes, rales, or rhonchi. ABDOMEN: Soft, nontender, nondistended. No organomegaly noted. EXTREMITIES: Trace edema bilaterally. Left fifth toe with mild bruising. NEUROLOGIC: No focal deficits. SKIN: Warm, dry, and intact. OSTEOPATHIC: No kyphoscoliosis, lordosis, or paraspinal tender points. LABORATORY DATA: Hemoglobin 15.4, hematocrit 49.7, platelets 578. Potassium 3.9, BUN 10, creatinine 0.72. Troponin less than 0.02. Electrocardiogram (10/28/2018 at 1919): Atrial fibrillation with controlled ventricular response. Nonspecific ST-T wave changes. IMPRESSIONS: 1. Atrial fibrillation with rapid ventricular response. 2. Accelerated hypertension with a blood pressure of 218/104 on arrival. 3. Mild coronary artery disease by cardiac catheterization. 4. Chronic obstructive pulmonary disease. 5. History of breast cancer. 6. Hyperlipidemia. RECOMMENDATIONS: 1. Ms. Randolph appears to have had atrial fibrillation with rapid ventricular response while at home as well as accelerated hypertension. 2. This is most likely the overall cause of her shortness of breath and fatigue. 3. She will continue Eliquis for her atrial fibrillation. 4. It appears that she was supposed to be discharged on Cardizem and was not. She has since been started on Cardizem, and her heart rates and blood pressure are better controlled. We will plan on discharging her on Cardizem-CD 120 mg daily if her heart rates and blood pressure are stable. 5. I did discuss with her consideration of TIANA with cardioversion to get her out of atrial fibrillation if possible. She would like to hold off and attempt medications at this time and follow up in the outpatient setting with Dr. Street, and if further troubles with atrial fibrillation, we will consider it. 6. If stable, in the morning, we will consider discharge. Thank you for allowing me to see Rajni Randolph. If there are any questions, please do not hesitate to call. DO IRIS Romero/annalisa , 07:57 PM , 08:08 PM
[2018-10-29] MEDS: MethylPREDNISolone Sod Succinate Inj 40 MG/ML Vial IV.PUSH SCH (21:32)
[2018-10-30 07:50] LABS: Hematocrit 44.1 % (35.0-46.0); Hemoglobin 14.3 gm/dL (11.6-15.3); Mean Corpuscular HGB Conc 32.4 % (32.0-36.0); Mean Corpuscular Hemoglobin 24.4 pg (27.0-34.0); Mean Corpuscular Volume 75.3 fL (80.0-100.0); Mean Platelet Volume 8.5 fL (7.0-11.0); Platelet Count 600 th/mm3 (150-450); Red Blood Count 5.86 mil/mm3 (4.00-5.30); White Blood Count 28.5 th/mm3 (4.0-11.0)
[2018-10-30] MEDS: Senna/Docusate Sodium 8.6/50 MG Tablet PO SCH ×2 (08:00→20:07)
[2018-10-30] MEDS: Furosemide 40 MG Tablet PO SCH (08:01)
[2018-10-30] MEDS: LETROZOLE 2.5 MG PO SCH (08:01)
[2018-10-30] MEDS: dilTIAZem 30 MG Tablet PO SCH ×2 (08:01→12:29)
[2018-10-30] MEDS: MethylPREDNISolone Sod Succinate Inj 40 MG/ML Vial IV.PUSH SCH (08:02)
[2018-10-30] MEDS: Umeclindinium 62.5 MCG/Vilanterol 25 MCG Inhaler INH SCH (08:03)
[2018-10-30 08:15] LABS: Carbon Dioxide 30.7 meq/L (21.0-32.0); Potassium 3.6 meq/L (3.5-5.1)
--- NOTE | 2018-10-30 14:02 | P.PNIM ---
Subjective Interval history: The patient was anxious about going home. She said she has no idea how she will do at home because of her severe left foot pain. She wants to know how to be functional at home. She is even considering rehab. She says her breathing is better. She says she feels some palpitations upon ambulation at times. Discussed with her friend at the bedside. Physical Exam Vital signs: Vital Signs 10/29/18 16:00 10/29/18 20:00 10/29/18 20:48 Temperature 97.4 F L 97.8 F Pulse Rate 81 81 Respiratory Rate 18 17 Blood Pressure 154/80 H 141/88 H Pulse Oximetry 94 L 96 94 L 10/30/18 00:00 10/30/18 04:00 10/30/18 08:00 Temperature 98.6 F 97.9 F 97.7 F Pulse Rate 79 65 77 Respiratory Rate 17 17 16 Blood Pressure 130/76 122/57 L 128/64 Pulse Oximetry 95 97 94 L 10/30/18 12:00 Temperature 97.9 F Pulse Rate 90 Respiratory Rate 18 Blood Pressure 128/72 Pulse Oximetry 94 L Intake & Output 10/29/18 10/30/18 10/30/18 18:59 06:59 18:59 Intake Total 840 / 840 Output Total 800 / 800 Balance 40 / 40 Weight 71 kg Intake: Oral 840 / 840 Output: Urine 800 / 800 Other: # Voids 2 # Bowel Movements 0 0 Narrative: General: Appears nervous. Head: Normocephalic. Atraumatic. EENT: Pupils equal round and reactive to light. Nose without drainage. Airway intact. Throat without injection. Cardiovascular: Irregularly irregular. No murmurs, rubs or gallops. Respiratory: Essentially clear, poor inspiratory effort. Abdomen: Soft, nontender, nondistended. Musculoskeletal: Intact ROM. Trace ankle edema bilaterally. Left foot mild edema. Fifth ray with bruising, tender to ROM. Pedal pulses 2+ bilat. Neuro: Sensory and motor grossly intact. Cranial nerves II through XII grossly intact. Psych: Tearful. Results - Labs CBC & Chem 7: 10/30/18 06:43 10/30/18 06:43 Laboratory Results - last 24 hr 10/30/18 10/30/18 06:43 06:43 WBC 28.5 H RBC 5.86 H Hgb 14.3 Hct 44.1 MCV 75.3 L MCH 24.4 L MCHC 32.4 RDW 22.0 H Plt Count 600 H MPV 8.5 Sodium 138 Potassium 3.6 Chloride 99 Carbon Dioxide 30.7 Anion Gap 8 BUN 18 Creatinine 0.66 Estimated GFR 87 L Random Glucose 198 H Calcium 9.0 Assessment and Plan - Assessment (1) Atrial fibrillation Code(s): I48.91 - Unspecified atrial fibrillation Status: Acute (2) Left foot pain Code(s): M79.672 - Pain in left foot Status: Acute (3) Acute exacerbation of chronic obstructive pulmonary disease (COPD) Code(s): J44.1 - Chronic obstructive pulmonary disease with (acute) exacerbation Status: Acute - Plan 77-year-old female with past medical history significant for newly diagnosed atrial fibrillation anticoagulated on Eliquis, hypertension, hyperlipidemia, COPD on 2 L nasal cannula, history of breast cancer and history of brain aneurysm which has been stable for 7 years presents to the emergency department for the evaluation of shortness of breath. Recently admitted in September for COPD/PNA. Reported symptoms started last night and worsened throughout the day today. She endorsed fatigue and weakness with accompanying nausea. No emesis. C/O palpitations and a home heart rate of 115. She denied any chest pain. No abdominal pain. No diarrhea. No fever/chills. No focal neurologic deficits. C /O left foot pain, had recent fall. Atrial fibrillation, EKG + afib Status post p.o./IV diltiazem with subsequent rate control (in ED). Cardiology consult appreciated. -continue telemetry monitoring -Continue Eliquis. -change short acting to Cardizem 120 mg daily. Shortness of breath, likely a combination of COPD exac and mild CHF. Echo done on 09/24/18 shows an EF of 50-55% Chest x-ray significant for cardiomegaly and pulmonary vascular congestion, BNP 215. -Cardiology consulted as above. -Oct. Solu-Medrol. -continue Duonebs. -Continue supplemental oxygen. -continue Lasix 40 mg PO BID. Left foot pain, s/p traumatic event where she kicked a chair x ray negative x 2. -Add [place] 5/325 1 tab po q 6 prn pain. -PT eval and treat, add OT. -wear ortho shoe when out of bed. -MRI pending. Leukocytosis Exacerbated by steroids. -monitor CBC. Hx breast cancer, bilat mastectomy. Stable, in remission -continue Letrozole Eliquis for DVT prophylaxis (1) Atrial fibrillation Qualifiers: Atrial fibrillation type: persistent Qualified Code(s): I48.1 - Persistent atrial fibrillation
--- NOTE | 2018-10-30 15:42 | MR ---
EXAM DATE: 10/30/2018 3:34 PM EST AGE/SEX: 78 years / Female INDICATIONS: . Pain. Lateral forefoot plantar foot pain post kicking a chair. CLINICAL DATA: This is the patient's initial encounter. Patient reports that signs and symptoms have been present for 3 days and indicates a pain score of 9/10. MEDICAL/SURGICAL HISTORY: Carcinoma, breast. Hypertension. Chronic obstructive pulmonary dise ase. Atrial fibrillation. Mastectomy, bilateral. COMPARISON: [facility], FOOT COMPLETE LEFT 3V, 10/29/2018. . TECHNIQUE: Multiplanar, multisequence MRI examination was performed without contrast. FINDINGS: Bones: The osseous structures are in normal alignment. No evidence of fracture or bony edema. There are no obvious erosions present. Joint Spaces: There is some degenerative changes involving the first metatarsal-phalangeal joint with a small subchondral cyst in the distal first metatarsal. There are some mild degenerative changes in volving the PIP and DIP joints. Tendons: The flexor tendons are intact. Soft Tissues: Nonspecific soft tissue swelling and edema in the subcutaneous soft tissues along the d orsum of the mid foot. No loculated fluid collections are demonstrated. Other: The plantar fascia is intact. No signal abnormalities are seen in the plantar musculature. CONCLUSION: 1. There is no evidence to indicate a stress fracture involving the foot. 2. There are degenerative changes involving the first metatarsal-phalangeal joint as well as the PIP and DIP joints characteristic for patient's age. 3. Nonspecific soft tissue swelling in the subcutaneous soft tissues along the dorsum of the midfoot . Electronically signed by: Guille Cruz MD Board Certified Radiologist 10/30/2018 3:41 PM EST
[2018-10-30] MEDS: dilTIAZem CD 120 MG Capsule PO SCH (16:07)
[2018-10-30 16:15] LABS: Hemoglobin A1c 6.9 % (4.3-6.0)
--- NOTE | 2018-10-30 20:10 | P.PNCA ---
Subjective Interval history: No events overnight Feeling better overall Worried about going home with her foot pain, getting around, etc Friend at the bedside Medications and Allergies Active Medications: Active Medications Acetaminophen (Tylenol) 650 mg PO Q4H PRN PRN Reason: Temp > 100.4 Hydrocodone Bitart/Acetaminophen ([place] 5/325) 1 tab PO Q4H PRN PRN Reason: PAIN 4-6 Last Admin: 10/30/18 16:07 Dose: 1 tab Al Hydroxide/Mg Hydroxide (Milk Of Magnesia Liq) 30 ml PO Q12H PRN PRN Reason: Mild Constipation Albuterol (Duoneb Neb (Prn)) 1 ampul NEB Q4HR NEB PRN PRN Reason: sob/wheezing Alprazolam (Xanax) 0.25 mg PO Q8H PRN PRN Reason: ANXIETY Apixaban (Eliquis) 5 mg PO BID [facility] Last Admin: 10/30/18 08:01 Dose: 5 mg Atorvastatin Calcium (Lipitor) 10 mg PO DAILY [facility] Last Admin: 10/30/18 08:00 Dose: 10 mg Bisacodyl (Dulcolax Supp) 10 mg RECTAL DAILY PRN PRN Reason: SEVERE CONSITIPATION Diltiazem HCl (Cardizem Cd 24hr) 120 mg PO DAILY [facility] Last Admin: 10/30/18 16:07 Dose: 120 mg Furosemide (Lasix) 40 mg PO DAILY [facility] Heparin Sodium (Porcine) (Heparin Inj) 5,000 units SQ Q12H [facility] Last Admin: 10/29/18 03:06 Dose: 5,000 units Lactulose (Lactulose Liq) 30 ml PO DAILY PRN PRN Reason: SEVERE CONSITIPATION Losartan Potassium (Cozaar) 50 mg PO BID [facility] Last Admin: 10/30/18 08:01 Dose: 50 mg Nebivolol (Bystolic) 5 mg PO DAILY [facility] Last Admin: 10/30/18 07:59 Dose: 5 mg Non-Formulary Medication (Letrozole [Letrozole]) 2.5 mg PO DAILY [facility] Last Admin: 10/30/18 08:01 Dose: 2.5 mg Ondansetron HCl (Zofran Inj) 4 mg IV.PUSH Q6H PRN PRN Reason: NAUSEA OR VOMITING Pantoprazole Sodium (Protonix) 40 mg PO DAILY [facility] Last Admin: 10/30/18 08:02 Dose: 40 mg Flovent Diskus 50mcg /Blister Aerosol Powder 1 each INH Q12HR [facility] Last Admin: 10/29/18 06:28 Dose: Not Given Senna/Docusate Sodium (Ita-Colace) 1 tab PO BID [facility] Last Admin: 10/30/18 08:00 Dose: 1 tab Sennosides (Senokot) 17.2 mg PO Q12H PRN PRN Reason: Moderate Constipation Sodium Chloride (Ns Flush) 2 ml IV.FLUSH BID [facility] Last Admin: 10/30/18 08:03 Dose: 2 ml Sodium Chloride (Ns Flush) 2 ml IV.FLUSH PRN PRN PRN Reason: FLUSH AFTER USING IV ACCESS Umeclidinium/Vilanterol (Anoro-Ellipta 62.5/25 Mcg Inh) 1 inhalation INH Q24H [facility] Last Admin: 10/30/18 08:03 Dose: Not Given Allergies Allergy/AdvReac Type Severity Reaction Status Date / Time No Known Allergies Allergy Verified 10/28/18 19:00 Home Medications Medication Instructions Recorded Confirmed Type atorvastatin 10 mg PO DAILY 09/24/18 10/28/18 History calcium carbonate-vitamin D3 1 tab PO QAM 09/24/18 10/28/18 History [Calcium 600 + D(3)] fluticasone 1 inh INHALATION Q12H 09/24/18 10/28/18 History letrozole 2.5 mg PO DAILY 09/24/18 10/28/18 History losartan 50 mg PO BID 09/24/18 10/28/18 History magnesium oxide 40 mg PO DAILY 09/24/18 10/28/18 History nebivolol [Bystolic] 5 mg PO DAILY 09/24/18 10/28/18 History nitroglycerin 0.4 mg SUBLINGUAL Q5-15M PRN 09/24/18 10/28/18 History omega 3-wwr-grg-fish oil [Fish Oil] 1,200 mg PO DAILY 09/24/18 10/28/18 History pantoprazole [Protonix] 40 mg PO DAILY 09/24/18 10/28/18 History polyethylene glycol 3350 [Miralax] 17 g PO DAILY PRN 09/24/18 10/28/18 History umeclidinium-vilanterol [Anoro 1 inh INHALATION Q24H 09/24/18 10/28/18 History Ellipta] wheat dextrin [Benefiber Sugar 1 packet PO DAILY 09/24/18 10/28/18 History Free (dextrin)] sxofgpwhhys-vttbkbzfk-piqyacsl 1 inh INHALATION DAILY 10/29/18 10/29/18 History [Trelegy Ellipta] Physical Exam Vital signs: Vital Signs 10/29/18 20:48 10/30/18 00:00 10/30/18 04:00 Temperature 98.6 F 97.9 F Pulse Rate 79 65 Respiratory Rate 17 17 Blood Pressure 130/76 122/57 L Pulse Oximetry 94 L 95 97 10/30/18 08:00 10/30/18 12:00 10/30/18 16:00 Temperature 97.7 F 97.9 F 97.3 F L Pulse Rate 77 90 89 Respiratory Rate 16 18 18 Blood Pressure 128/64 128/72 153/72 H Pulse Oximetry 94 L 94 L 97 Intake & Output 10/30/18 10/30/18 10/31/18 06:59 18:59 06:59 Intake Total 960 / 960 Output Total 1300 / 1300 Balance -340 / -340 Weight 71 kg Intake: Oral 960 / 960 Output: Urine 1300 / 1300 Other: # Voids 2 # Bowel Movements 0 0 Narrative: General: Appears nervous. Head: Normocephalic. Atraumatic. EENT: Pupils equal round and reactive to light. Nose without drainage. Airway intact. Throat without injection. Cardiovascular: Irregularly irregular. No murmurs, rubs or gallops. Respiratory: Essentially clear, poor inspiratory effort. Abdomen: Soft, nontender, nondistended. Musculoskeletal: Intact ROM. Trace ankle edema bilaterally. Left foot mild edema. Fifth ray with bruising, tender to ROM. Pedal pulses 2+ bilat. Neuro: Sensory and motor grossly intact. Cranial nerves II through XII grossly intact. Psych: Tearful. Results 10/30/18 06:43 10/30/18 06:43 Cardiac Enzymes 10/28/18 10/28/18 Range/Units 20:00 20:00 AST 26 (15-37) U/L Troponin I Less than 0.02 L (0.02-0.05) ng/mL B-Natriuretic Peptide 215 H (0-100) pg/mL Coagulation 10/28/18 Range/Units 20:00 B-Natriuretic Peptide 215 H (0-100) pg/mL CBC 10/28/18 10/29/18 10/30/18 Range/Units 20:00 06:42 06:43 WBC 16.3 H 19.5 H 28.5 H (4.0-11.0) th/mm3 RBC 6.28 H 6.52 H 5.86 H (4.00-5.30) mil/mm3 Hgb 15.2 15.4 H 14.3 (11.6-15.3) gm/dL Hct 47.0 H 49.7 H 44.1 (35.0-46.0) % Plt Count 532 H 578 H 600 H (150-450) th/mm3 Neut # (Auto) 13.7 H 18.5 H (1.8-7.7) th/mm3 Lymph # (Auto) 1.3 0.7 L (1.0-4.8) th/mm3 [place] # (Auto) 0.7 0.2 (0.0-0.9) th/mm3 Eos # (Auto) 0.2 0.0 (0.0-0.4) th/mm3 Baso # (Auto) 0.4 H 0.1 (0.0-0.2) th/mm3 Comprehensive Metabolic Panel 10/28/18 10/29/18 10/30/18 Range/Units 20:00 06:43 06:43 Sodium 139 138 138 (136-145) meq/L Potassium 4.1 3.9 3.6 (3.5-5.1) meq/L Chloride 102 101 99 (98-107) meq/L Carbon Dioxide 28.4 26.8 30.7 (21.0-32.0) meq/L BUN 9 10 18 (7-18) mg/dL Creatinine 0.68 0.72 0.66 (0.50-1.00) mg/dL Calcium 9.0 9.3 9.0 (8.5-10.1) mg/dL AST 26 (15-37) U/L ALT 38 (10-53) U/L Alkaline Phosphatase 145 H (45-117) U/L Total Protein 6.9 (6.4-8.2) g/dL Albumin 3.6 (3.4-5.0) g/dL Intake and Output 12/27/18 12/27/18 12/27/18 06:59 14:59 22:59 Intake Total 960 / 960 Output Total 1300 / 1300 Balance -340 / -340 Intake: Oral 960 / 960 Output: Urine 1300 / 1300 Other: # Voids 2 # Bowel Movements 0 0 Weight 71 kg - Imaging and Cardiology Imaging: Impressions Chest X-Ray 10/28/18 19:51 CONCLUSION: 1. Cardiomegaly with pulmonary vascular congestion. 2. Likely small bilateral pleural effusions with associated airspace disease in the lower lung zones, right greater than left. Foot X-Ray 10/29/18 00:00 CONCLUSION: Stable plain films of left foot compared to the prior examination. There continues to be degenerative changes especially at the first metatarsal- phalangeal joint and a small heel spur. Foot MRI 10/30/18 00:00 CONCLUSION: 1. There is no evidence to indicate a stress fracture involving the foot. 2. There are degenerative changes involving the first metatarsal-phalangeal joint as well as the PIP and DIP joints characteristic for patient's age. 3. Nonspecific soft tissue swelling in the subcutaneous soft tissues along the dorsum of the midfoot. Assessment and Plan - Assessment (1) Weakness Code(s): R53.1 - Weakness Status: Acute (2) Atrial fibrillation Code(s): I48.91 - Unspecified atrial fibrillation Status: Acute (3) Left foot pain Code(s): M79.672 - Pain in left foot Status: Acute - Plan 1. Atrial fibrillation with rapid ventricular response. Now controlled on Cardizem Plan to change to Cardizem CD 120mg, can increase if needed Consideration of TIANA/CV, wants to try medications first, will discuss further with Dr. Street outpatient Con't Eliqugilson 2. Accelerated hypertension with a blood pressure of 218/104 on arrival. Blood pressure better on Cardizem 3. Mild coronary artery disease by cardiac catheterization. 4. Chronic obstructive pulmonary disease. 5. History of breast cancer. 6. Hyperlipidemia. 7. Considering rehab due to foot pain and unsure if she can take care of herself (2) Atrial fibrillation Qualifiers: Atrial fibrillation type: persistent Qualified Code(s): I48.1 - Persistent atrial fibrillation
[2018-10-31 07:01] LABS: Baso # (Auto) 0.1 th/mm3 (0.0-0.2); Baso % (Auto) 0.2 % (0.0-2.0); Eos # (Auto) 0.1 th/mm3 (0.0-0.4); Eos % (Auto) 0.3 % (0.0-4.0); Hematocrit 45.7 % (35.0-46.0); Hemoglobin 14.9 gm/dL (11.6-15.3); Lymph # (Auto) 1.7 th/mm3 (1.0-4.8); Lymph % (Auto) 5.9 % (9.0-44.0); Mean Corpuscular HGB Conc 32.6 % (32.0-36.0); Mean Corpuscular Hemoglobin 24.7 pg (27.0-34.0); Mean Corpuscular Volume 75.7 fL (80.0-100.0); Mean Platelet Volume 7.8 fL (7.0-11.0); Mono # (Auto) 0.9 th/mm3 (0.0-0.9); Mono % (Auto) 3.1 % (0.0-8.0); Neut # (Auto) 25.5 th/mm3 (1.8-7.7); Neut % (Auto) 90.5 % (16.0-70.0); Platelet Count 634 th/mm3 (150-450); Red Blood Count 6.03 mil/mm3 (4.00-5.30); Red Cell Distribution Width 22.3 % (11.6-17.2); White Blood Count 28.1 th/mm3 (4.0-11.0)
[2018-10-31 07:23] LABS: Calcium 9.2 mg/dL (8.5-10.1); Carbon Dioxide 30.6 meq/L (21.0-32.0); Potassium 3.8 meq/L (3.5-5.1)
[2018-10-31] MEDS: Senna/Docusate Sodium 8.6/50 MG Tablet PO SCH ×2 (08:02→21:00)
[2018-10-31] MEDS: LETROZOLE 2.5 MG PO SCH (08:03)
[2018-10-31] MEDS: Furosemide 40 MG Tablet PO SCH (08:03)
[2018-10-31] MEDS: dilTIAZem CD 120 MG Capsule PO SCH (08:03)
[2018-10-31] MEDS ORDERED: predniSONE 20 MG Tablet PO SCH (09:00)
[2018-10-31] MEDS: Umeclindinium 62.5 MCG/Vilanterol 25 MCG Inhaler INH SCH (12:33)
[2018-10-31] MEDS ORDERED: ALPRAZolam 0.5 MG Tablet PO ONE (15:13)
--- NOTE | 2018-10-31 15:27 | P.PNIM ---
Subjective Interval history: The patient said that she felt worse today. She said she was feeling more short of breath. She said she felt anxious. Her friends were at the bedside and their questions were answered. Discussed with nursing. Physical Exam Vital signs: Vital Signs 10/30/18 16:00 10/30/18 20:00 10/30/18 20:32 Temperature 97.3 F L 98 F Pulse Rate 89 80 Respiratory Rate 18 15 Blood Pressure 153/72 H 150/71 H Pulse Oximetry 97 94 L 97 10/30/18 22:07 10/31/18 00:00 10/31/18 04:00 Temperature 97.8 F 97.8 F Pulse Rate 70 69 80 Respiratory Rate 17 17 Blood Pressure 133/87 156/98 H Pulse Oximetry 96 94 L 10/31/18 08:00 10/31/18 11:06 10/31/18 12:00 Temperature 98.2 F 98.5 F Pulse Rate 80 71 Respiratory Rate 17 17 Blood Pressure 151/76 H 136/81 Pulse Oximetry 96 96 97 Intake & Output 10/30/18 10/31/18 10/31/18 18:59 06:59 18:59 Intake Total 1200 / 1200 Output Total 1300 / 1300 Balance -100 / -100 Weight 71 kg Intake: Oral 1200 / 1200 Output: Urine 1300 / 1300 Other: # Voids 2 # Bowel Movements 0 Narrative: General: Appears nervous. Head: Normocephalic. Atraumatic. EENT: Pupils equal round and reactive to light. Nose without drainage. Airway intact. Throat without injection. Cardiovascular: Irregularly irregular. No murmurs, rubs or gallops. Respiratory: Essentially clear, poor inspiratory effort. Abdomen: Soft, nontender, nondistended. Musculoskeletal: Intact ROM. Trace ankle edema bilaterally. Left foot mild edema. Fifth ray with bruising, tender to ROM. Pedal pulses 2+ bilat. Neuro: Sensory and motor grossly intact. Cranial nerves II through XII grossly intact. Psych: Anxious. Results - Labs CBC & Chem 7: 10/31/18 06:37 10/31/18 06:37 Laboratory Results - last 24 hr 10/30/18 10/31/18 10/31/18 06:43 06:37 06:37 WBC 28.1 H RBC 6.03 H Hgb 14.9 Hct 45.7 MCV 75.7 L MCH 24.7 L MCHC 32.6 RDW 22.3 H Plt Count 634 H MPV 7.8 Neut % (Auto) 90.5 H Lymph % (Auto) 5.9 L [place] % (Auto) 3.1 Eos % (Auto) 0.3 Baso % (Auto) 0.2 Neut # (Auto) 25.5 H Lymph # (Auto) 1.7 [place] # (Auto) 0.9 Eos # (Auto) 0.1 Baso # (Auto) 0.1 WBC Differential . Differential Comment Auto diff final Sodium 136 Potassium 3.8 Chloride 98 Carbon Dioxide 30.6 Anion Gap 7 BUN 19 H Creatinine 0.72 Estimated GFR 79 L Random Glucose 126 H Hemoglobin A1c 6.9 H Calcium 9.2 - Imaging Impressions Foot MRI 10/30/18 00:00 CONCLUSION: 1. There is no evidence to indicate a stress fracture involving the foot. 2. There are degenerative changes involving the first metatarsal-phalangeal joint as well as the PIP and DIP joints characteristic for patient's age. 3. Nonspecific soft tissue swelling in the subcutaneous soft tissues along the dorsum of the midfoot. Assessment and Plan - Assessment (1) Atrial fibrillation Code(s): I48.91 - Unspecified atrial fibrillation Status: Acute (2) Left foot pain Code(s): M79.672 - Pain in left foot Status: Acute (3) Acute exacerbation of chronic obstructive pulmonary disease (COPD) Code(s): J44.1 - Chronic obstructive pulmonary disease with (acute) exacerbation Status: Acute - Plan 77-year-old female with past medical history significant for newly diagnosed atrial fibrillation anticoagulated on Eliquis, hypertension, hyperlipidemia, COPD on 2 L nasal cannula, history of breast cancer and history of brain aneurysm which has been stable for 7 years presents to the emergency department for the evaluation of shortness of breath. Recently admitted in September for COPD/PNA. Reported symptoms started last night and worsened throughout the day today. She endorsed fatigue and weakness with accompanying nausea. No emesis. C/O palpitations and a home heart rate of 115. She denied any chest pain. No abdominal pain. No diarrhea. No fever/chills. No focal neurologic deficits. C /O left foot pain, had recent fall. Atrial fibrillation, EKG + afib Status post p.o./IV diltiazem with subsequent rate control (in ED). Cardiology consult appreciated. -continue telemetry monitoring -Continue Eliquis. -continue Cardizem 120 mg daily. Shortness of breath, likely a combination of COPD exac and mild CHF. Echo done on 09/24/18 shows an EF of 50-55% Chest x-ray significant for cardiomegaly and pulmonary vascular congestion, BNP 215. -Cardiology consulted as above. -prednisone daily. -continue Duonebs standing and as needed. -Continue supplemental oxygen. -continue Lasix 40 mg PO daily. -add PO Levaquin. -add Xanax for anxiety. Left foot pain, s/p traumatic event where she kicked a chair x ray negative x 2. -Add [place] 5/325 1 tab po q 6 prn pain. -PT eval and treat, add OT. -wear ortho shoe when out of bed. -MRI negative. Leukocytosis Exacerbated by steroids. Chronic, follows with Dr. Pisano. -monitor CBC. -outpt follow-up with hematology. Hx breast cancer, bilat mastectomy. Stable, in remission -continue Letrozole -outpt follow-up with oncology. Eliquis for DVT prophylaxis (1) Atrial fibrillation Qualifiers: Atrial fibrillation type: persistent Qualified Code(s): I48.1 - Persistent atrial fibrillation
--- NOTE | 2018-10-31 15:53 | XR ---
EXAM DATE: 10/31/2018 3:48 PM EST AGE/SEX: 78 years / Female INDICATIONS: . Shortness of breath. CLINICAL DATA: This is the patient's initial encounter. Patient reports that signs and symptoms have been present for 1 day and indicates a pain score of 0/10. MEDICAL/SURGICAL HISTORY: Chronic obstructive pulmonary disease. Mastectomy, bilateral. COMPARISON: [facility] [place] 1[place] SING[place] AP, 10/28/2018. . FINDINGS: The heart is enlarged. There is improved aeration of the right lung base compared with previous exami nation. Scattered scarring is noted within the right apex and is stable. Tiny right pleural effusion is noted. Stable changes suggestive of COPD are noted. CONCLUSION: 1. Improved aeration of the right lung base compared with previous examination. 2. Tiny right pleural effusion. 3. Cardiomegaly. 4. Stable right apical fibrotic scarring. 5. Stable COPD. Electronically signed by: Faizan Garcia MD Board Certified Radiologist 10/31/2018 3:52 PM EST
[2018-10-31] MEDS: levoFLOXacin 500 MG Tablet PO SCH (16:03)
[2018-10-31 16:32] LABS: ABG Base Excess 6.9 mmol/L (-2-2); ABG PCO2 47 mmHg (38-42); ABG PO2 72 mmHg (61-120)
[2018-10-31] MEDS: predniSONE 20 MG Tablet PO SCH (17:48)
--- NOTE | 2018-10-31 18:28 | P.PNCA ---
Subjective Interval history: Feels ok Concerned about going home and taking care of herself Medications and Allergies Active Medications: Active Medications Acetaminophen (Tylenol) 650 mg PO Q4H PRN PRN Reason: Temp > 100.4 Hydrocodone Bitart/Acetaminophen ([place] 5/325) 1 tab PO Q4H PRN PRN Reason: PAIN 4-6 Last Admin: 10/31/18 12:32 Dose: 1 tab Hydrocodone Bitart/Acetaminophen ([place] 10/325) 1 tab PO Q4H PRN PRN Reason: pain 7-10 Last Admin: 10/31/18 16:41 Dose: 1 tab Al Hydroxide/Mg Hydroxide (Milk Of Magnesia Liq) 30 ml PO Q12H PRN PRN Reason: Mild Constipation Albuterol (Duoneb Neb (Prn)) 1 ampul NEB Q4HR NEB PRN PRN Reason: sob/wheezing Albuterol (Duoneb Neb (Ruben)) 1 ampul NEB Q6HR NEB [facility] Last Admin: 10/31/18 16:33 Dose: 1 ampul Alprazolam (Xanax) 0.25 mg PO Q8H PRN PRN Reason: ANXIETY Apixaban (Eliquis) 5 mg PO BID [facility] Last Admin: 10/31/18 08:02 Dose: 5 mg Atorvastatin Calcium (Lipitor) 10 mg PO DAILY [facility] Last Admin: 10/31/18 08:03 Dose: 10 mg Bisacodyl (Dulcolax Supp) 10 mg RECTAL DAILY PRN PRN Reason: SEVERE CONSITIPATION Diltiazem HCl (Cardizem Cd 24hr) 120 mg PO DAILY [facility] Last Admin: 10/31/18 08:03 Dose: 120 mg Furosemide (Lasix) 40 mg PO DAILY [facility] Last Admin: 10/31/18 08:03 Dose: 40 mg Lactulose (Lactulose Liq) 30 ml PO DAILY PRN PRN Reason: SEVERE CONSITIPATION Levofloxacin (Levaquin) 500 mg PO Q24H [facility] Last Admin: 10/31/18 16:03 Dose: 500 mg Losartan Potassium (Cozaar) 50 mg PO BID [facility] Last Admin: 10/31/18 08:02 Dose: 50 mg Nebivolol (Bystolic) 5 mg PO DAILY [facility] Last Admin: 10/31/18 08:03 Dose: 5 mg Non-Formulary Medication (Letrozole [Letrozole]) 2.5 mg PO DAILY [facility] Last Admin: 10/31/18 08:03 Dose: 2.5 mg Pantoprazole Sodium (Protonix) 40 mg PO DAILY [facility] Last Admin: 10/31/18 08:02 Dose: 40 mg Flovent Diskus 50mcg /Blister Aerosol Powder 1 each INH Q12HR [facility] Last Admin: 10/29/18 06:28 Dose: Not Given Prednisone (Deltasone) 20 mg PO DAILY [facility] Last Admin: 10/31/18 17:48 Dose: 20 mg Senna/Docusate Sodium (Ita-Colace) 1 tab PO BID [facility] Last Admin: 10/31/18 08:02 Dose: 1 tab Sennosides (Senokot) 17.2 mg PO Q12H PRN PRN Reason: Moderate Constipation Sodium Chloride (Ns Flush) 2 ml IV.FLUSH BID [facility] Last Admin: 10/31/18 08:07 Dose: 2 ml Sodium Chloride (Ns Flush) 2 ml IV.FLUSH PRN PRN PRN Reason: FLUSH AFTER USING IV ACCESS Umeclidinium/Vilanterol (Anoro-Ellipta 62.5/25 Mcg Inh) 1 inhalation INH Q24H [facility] Last Admin: 10/31/18 12:33 Dose: Not Given Allergies Allergy/AdvReac Type Severity Reaction Status Date / Time No Known Allergies Allergy Verified 10/28/18 19:00 Home Medications Medication Instructions Recorded Confirmed Type atorvastatin 10 mg PO DAILY 09/24/18 10/28/18 History calcium carbonate-vitamin D3 1 tab PO QAM 09/24/18 10/28/18 History [Calcium 600 + D(3)] fluticasone 1 inh INHALATION Q12H 09/24/18 10/28/18 History letrozole 2.5 mg PO DAILY 09/24/18 10/28/18 History losartan 50 mg PO BID 09/24/18 10/28/18 History magnesium oxide 40 mg PO DAILY 09/24/18 10/28/18 History nebivolol [Bystolic] 5 mg PO DAILY 09/24/18 10/28/18 History nitroglycerin 0.4 mg SUBLINGUAL Q5-15M PRN 09/24/18 10/28/18 History omega 3-iah-mba-fish oil [Fish Oil] 1,200 mg PO DAILY 09/24/18 10/28/18 History pantoprazole [Protonix] 40 mg PO DAILY 09/24/18 10/28/18 History polyethylene glycol 3350 [Miralax] 17 g PO DAILY PRN 09/24/18 10/28/18 History umeclidinium-vilanterol [Anoro 1 inh INHALATION Q24H 09/24/18 10/28/18 History Ellipta] wheat dextrin [Benefiber Sugar 1 packet PO DAILY 09/24/18 10/28/18 History Free (dextrin)] ygfjlyoltnm-eqnysovqi-jcxrcsso 1 inh INHALATION DAILY 10/29/18 10/29/18 History [Trelegy Ellipta] Physical Exam Vital signs: Vital Signs 10/30/18 20:00 10/30/18 20:32 10/30/18 22:07 Temperature 98 F Pulse Rate 80 70 Respiratory Rate 15 Blood Pressure 150/71 H Pulse Oximetry 94 L 97 10/31/18 00:00 10/31/18 04:00 10/31/18 08:00 Temperature 97.8 F 97.8 F 98.2 F Pulse Rate 69 80 80 Respiratory Rate 17 17 17 Blood Pressure 133/87 156/98 H 151/76 H Pulse Oximetry 96 94 L 96 10/31/18 11:06 10/31/18 12:00 10/31/18 16:00 Temperature 98.5 F 99.1 F Pulse Rate 83 87 Respiratory Rate 17 17 Blood Pressure 136/81 135/73 Pulse Oximetry 96 97 95 10/31/18 16:34 Temperature Pulse Rate 83 Respiratory Rate 18 Blood Pressure Pulse Oximetry Intake & Output 10/30/18 10/31/18 10/31/18 18:59 06:59 18:59 Intake Total 1200 / 1200 Output Total 1300 / 1300 Balance -100 / -100 Weight 71 kg Intake: Oral 1200 / 1200 Output: Urine 1300 / 1300 Other: # Voids 2 # Bowel Movements 0 Narrative: General: Appears nervous. Head: Normocephalic. Atraumatic. EENT: Pupils equal round and reactive to light. Nose without drainage. Airway intact. Throat without injection. Cardiovascular: Irregularly irregular. No murmurs, rubs or gallops. Respiratory: Essentially clear, poor inspiratory effort. Abdomen: Soft, nontender, nondistended. Musculoskeletal: Intact ROM. Trace ankle edema bilaterally. Left foot mild edema. Fifth ray with bruising, tender to ROM. Pedal pulses 2+ bilat. Neuro: Sensory and motor grossly intact. Cranial nerves II through XII grossly intact. Psych: Anxious. Results 10/31/18 06:37 10/31/18 06:37 CBC 10/30/18 10/31/18 Range/Units 06:43 06:37 WBC 28.5 H 28.1 H (4.0-11.0) th/mm3 RBC 5.86 H 6.03 H (4.00-5.30) mil/mm3 Hgb 14.3 14.9 (11.6-15.3) gm/dL Hct 44.1 45.7 (35.0-46.0) % Plt Count 600 H 634 H (150-450) th/mm3 Neut # (Auto) 25.5 H (1.8-7.7) th/mm3 Lymph # (Auto) 1.7 (1.0-4.8) th/mm3 Spink # (Auto) 0.9 (0.0-0.9) th/mm3 Eos # (Auto) 0.1 (0.0-0.4) th/mm3 Baso # (Auto) 0.1 (0.0-0.2) th/mm3 Comprehensive Metabolic Panel 10/30/18 10/31/18 Range/Units 06:43 06:37 Sodium 138 136 (136-145) meq/L Potassium 3.6 3.8 (3.5-5.1) meq/L Chloride 99 98 (98-107) meq/L Carbon Dioxide 30.7 30.6 (21.0-32.0) meq/L BUN 18 19 H (7-18) mg/dL Creatinine 0.66 0.72 (0.50-1.00) mg/dL Calcium 9.0 9.2 (8.5-10.1) mg/dL Intake and Output 10/31/18 10/31/18 10/31/18 06:59 14:59 22:59 Intake Total 240 / 240 Balance 240 / 240 Intake: Oral 240 / 240 Other: # Voids 2 # Bowel Movements 0 Weight 71 kg - Imaging and Cardiology Imaging: Impressions Foot MRI 10/30/18 00:00 CONCLUSION: 1. There is no evidence to indicate a stress fracture involving the foot. 2. There are degenerative changes involving the first metatarsal-phalangeal joint as well as the PIP and DIP joints characteristic for patient's age. 3. Nonspecific soft tissue swelling in the subcutaneous soft tissues along the dorsum of the midfoot. Chest X-Ray 10/31/18 00:00 CONCLUSION: 1. Improved aeration of the right lung base compared with previous examination. 2. Tiny right pleural effusion. 3. Cardiomegaly. 4. Stable right apical fibrotic scarring. 5. Stable COPD. Assessment and Plan - Assessment (1) Weakness Code(s): R53.1 - Weakness Status: Acute (2) Atrial fibrillation Code(s): I48.91 - Unspecified atrial fibrillation Status: Acute (3) Left foot pain Code(s): M79.672 - Pain in left foot Status: Acute - Plan 1. Atrial fibrillation with rapid ventricular response. Now controlled on Cardizem Changed to Cardizem CD 120mg, can increase if needed Consideration of TIANA/CV, wants to try medications first, will discuss further with Dr. Street outpatient Con't Eliquis 2. Accelerated hypertension with a blood pressure of 218/104 on arrival. Blood pressure better on Cardizem 3. Mild coronary artery disease by cardiac catheterization. 4. Chronic obstructive pulmonary disease. 5. History of breast cancer. 6. Hyperlipidemia. 7. Considering rehab due to foot pain and unsure if she can take care of herself 8. Dr. Diaz will be covering over the weekend, he will see PRN (2) Atrial fibrillation Qualifiers: Atrial fibrillation type: persistent Qualified Code(s): I48.1 - Persistent atrial fibrillation
[2018-11-01] MEDS: dilTIAZem CD 120 MG Capsule PO SCH (08:32)
[2018-11-01] MEDS: Furosemide 40 MG Tablet PO SCH (08:33)
[2018-11-01] MEDS: LETROZOLE 2.5 MG PO SCH (08:33)
[2018-11-01] MEDS: Senna/Docusate Sodium 8.6/50 MG Tablet PO SCH (08:33)
[2018-11-01] MEDS: predniSONE 20 MG Tablet PO SCH (08:33)
[2018-11-01 09:07] LABS: Baso # (Auto) 0.1 th/mm3 (0.0-0.2); Baso % (Auto) 0.6 % (0.0-2.0); Eos # (Auto) 0.1 th/mm3 (0.0-0.4); Eos % (Auto) 0.4 % (0.0-4.0); Hematocrit 47.5 % (35.0-46.0); Hemoglobin 14.8 gm/dL (11.6-15.3); Lymph # (Auto) 0.9 th/mm3 (1.0-4.8); Lymph % (Auto) 4.4 % (9.0-44.0); Mean Corpuscular HGB Conc 31.2 % (32.0-36.0); Mean Corpuscular Hemoglobin 23.8 pg (27.0-34.0); Mean Corpuscular Volume 76.4 fL (80.0-100.0); Mono # (Auto) 0.8 th/mm3 (0.0-0.9); Mono % (Auto) 4.1 % (0.0-8.0); Neut # (Auto) 17.9 th/mm3 (1.8-7.7); Neut % (Auto) 90.5 % (16.0-70.0); Platelet Count 524 th/mm3 (150-450); Red Blood Count 6.22 mil/mm3 (4.00-5.30); Red Cell Distribution Width 21.8 % (11.6-17.2); White Blood Count 19.8 th/mm3 (4.0-11.0)
[2018-11-01] MEDS: Umeclindinium 62.5 MCG/Vilanterol 25 MCG Inhaler INH SCH (10:58)
[2018-11-01 14:27] VITALS: BP 124/63; TEMP 98.4; O2SAT 95
--- NOTE | 2018-11-01 15:11 | P.DCO ---
Diagnosis (1) Weakness: Status: Acute (2) Atrial fibrillation: Status: Acute (3) Left foot pain: Status: Acute Physical Therapy Order: Evaluate and treat, Improve ambulation and Strength and gait training Occupational Therapy Order: Evaluate and treat, Improve ADL, Gross motor coordination and Fine motor coordination Home Health Nursing Order: Medical education, Oxygen administration education, Medication education- adverse effect and Nursing assessment with vital signs Case Management Consult Case Management Consult-Home Health: Yes I have seen patient Rajni Randolph on 11/01/18. My clinical findings support the need for the requested home health care services because: I certify that my clinical findings support that this patient is homebound because: _ (1) Atrial fibrillation Qualifiers: Atrial fibrillation type: persistent Qualified Code(s): I48.1 - Persistent atrial fibrillation
--- NOTE | 2018-11-01 15:28 | P.DS ---
DS: Providers Date of admission: 10/28/18 21:59 Primary care physician: Pawel Rodriguez MD Consults: 10/28/18 22:30 HUB Only Consult Order Routine Consulting Provider: Ambrose Boggs 10/28/18 23:37 Consult to Cardiology Routine Consulting Provider: Ruel Street Does the patient have a Floor Worker [place] who follows them?: Yes Preferred Pastrycook:: Ruel Street Reason for Consultation: a fib, ? CHF Notified:: Service Spoke with:: holly Date Notified:: 10/29/18 Time Notified:: 00:18 Ordering Provider: GEORGINA 10/30/18 09:26 HUB Only Consult Order Routine Consulting Provider: [facility] Brief History from admission: 77-year-old female with past medical history significant for newly diagnosed atrial fibrillation anticoagulated on Eliquis, hypertension, hyperlipidemia, COPD on 2 L nasal cannula, history of breast cancer and history of brain aneurysm which has been stable for 7 years presents to the emergency department for the evaluation of shortness of breath. The patient reports her symptoms started last night and worsened throughout the day today. She endorses fatigue and weakness with accompanying nausea. No emesis. The patient reports palpitations and a home heart rate of 115. She denies any chest pain. No abdominal pain. No diarrhea. No fever/chills. No focal neurologic deficits. DS: Diagnosis Discharge Diagnosis (1) Weakness: Status: Acute (2) Atrial fibrillation: Status: Acute (3) Left foot pain: Status: Acute DS: Summary Afib 77-year-old female with past medical history significant for newly diagnosed atrial fibrillation anticoagulated on Eliquis, hypertension, hyperlipidemia, COPD on 2 L nasal cannula, history of breast cancer and history of brain aneurysm which has been stable for 7 years presents to the emergency department for the evaluation of shortness of breath. Recently admitted in September for COPD/PNA. C/O palpitations and a home heart rate of 115. Status post p.o./IV diltiazem with subsequent rate control. Cardiology was consulted. She was monitored on telemetry. Cardizem changed to 120 mg daily. She was continued on Eliquis. She will follow up with cardiology as an outpt. Shortness of breath Echo done on 09/24/18 showed an EF of 50-55%. Chest x-ray significant for cardiomegaly and pulmonary vascular congestion, BNP 215. Cardiology consulted as above. She was switched to prednisone daily. She was continued on Duonebs standing and as needed. She will continue supplemental oxygen. She was diuresed. She will complete a course of PO doxycycline. She improved with Xanax. She will follow up with her PCP. Left foot pain Started after a traumatic event where she kicked a chair. x ray negative x 2. We addd Spray for pain control. MRI was negative. She worked with PT/OT and will be discharged with [facility]. She was given an ortho shoe. She will follow up with podiatry. Leukocytosis Chronic, follows with Dr. Pisano. She will have outpt follow-up with hematology. She was continued on letrozole. Time Spent with Patient Total time spent providing and/or coordinating discharge services: Greater than 30 minutes Quality: VTE Deep Vein Thrombosis/Pulmonary Embolism Present on Admission: No Exam Narrative Exam Narrative: General: Appears nervous. Head: Normocephalic. Atraumatic. EENT: Pupils equal round and reactive to light. Nose without drainage. Airway intact. Throat without injection. Cardiovascular: Irregularly irregular. No murmurs, rubs or gallops. Respiratory: Essentially clear, poor inspiratory effort. Abdomen: Soft, nontender, nondistended. Musculoskeletal: Intact ROM. Trace ankle edema bilaterally. Left foot mild edema. Fifth ray with bruising, tender to ROM. Pedal pulses 2+ bilat. Neuro: Sensory and motor grossly intact. Cranial nerves II through XII grossly intact. Psych: Anxious. Results Labs on day of discharge: Labs from last 24 hours 11/01/18 10/31/18 08:12 16:18 WBC 19.8 H RBC 6.22 H Hgb 14.8 Hct 47.5 H MCV 76.4 L MCH 23.8 L MCHC 31.2 L RDW 21.8 H Plt Count 524 H MPV 8.0 Neut % (Auto) 90.5 H Lymph % (Auto) 4.4 L Foster % (Auto) 4.1 Eos % (Auto) 0.4 Baso % (Auto) 0.6 Neut # (Auto) 17.9 H Lymph # (Auto) 0.9 L Foster # (Auto) 0.8 Eos # (Auto) 0.1 Baso # (Auto) 0.1 WBC Differential . Differential Comment Auto diff final Puncture Site Left radial Patient Temperature 98.6 O2 Saturation 92 ABG pH 7.44 H ABG pCO2 47 H ABG pO2 72 ABG HCO3 31 H ABG O2 Content 20.1 H ABG Base Excess 6.9 H ABG Methemoglobin 1.1 Jorge Test Present Hemoglobin 15.5 Carboxyhemoglobin 1.3 O2 Delivery Device Nasal cannula Liter Flow 2.00 Critical Value No Impressions ITS Impressions Foot X-Ray 10/29/18 00:00 CONCLUSION: Stable plain films of left foot compared to the prior examination. There continues to be degenerative changes especially at the first metatarsal- phalangeal joint and a small heel spur. Foot MRI 10/30/18 00:00 CONCLUSION: 1. There is no evidence to indicate a stress fracture involving the foot. 2. There are degenerative changes involving the first metatarsal-phalangeal joint as well as the PIP and DIP joints characteristic for patient's age. 3. Nonspecific soft tissue swelling in the subcutaneous soft tissues along the dorsum of the midfoot. Chest X-Ray 10/31/18 00:00 CONCLUSION: 1. Improved aeration of the right lung base compared with previous examination. 2. Tiny right pleural effusion. 3. Cardiomegaly. 4. Stable right apical fibrotic scarring. 5. Stable COPD. Discharge Plan Discharge Disposition Patient Disposition: W/Home Health Service Discharge Condition Condition: Stable Discharge Order Discharge Orders: Discharge Order (Routine); Ordered 11/01/18 Ordered By: Raman Sauceda Discharge Details Anticipated Discharge Date: 11/01/18 Discharge Comment: Please have case monitor go over home health care per patient request Physicians Team ED Provider: Benja Krishnamurthy Primary Care Provider: Pawel Rodriguez Attending Provider: Raman Sauceda Other Providers: Ambrose Boggs ; Ruel Street ; [facility] Rxs /Orders / Referrals /Forms Prescriptions: New hydrocodone-acetaminophen 5-325 mg Tablet 1 tab PO Q4H PRN (Reason: PAIN 4-6) Qty: 12 RF: 0 prednisone 20 mg Tablet 20 mg PO DAILY Qty: 4 RF: 0 alprazolam [Xanax] 0.25 mg Tablet 0.25 mg PO Q8H PRN (Reason: Anxiety) Qty: 9 RF: 0 diltiazem HCl 120 mg Capsule,Extended Release 24hr 120 mg PO DAILY Qty: 30 RF: 0 umeclidinium-vilanterol [Anoro Ellipta] 62.5-25 mcg/actuation Blister With Device 1 inhalation INH Q24H Qty: 1 RF: 0 doxycycline hyclate 100 mg tablet 100 mg PO BID 4 Days Qty: 8 RF: 0 Continue losartan 50 mg Tablet 50 mg PO BID RF: 0 atorvastatin 10 mg Tablet 10 mg PO DAILY RF: 0 pantoprazole [Protonix] 40 mg Tablet,Delayed Release (Dr/Ec) 40 mg PO DAILY RF: 0 nebivolol [Bystolic] 5 mg Tablet 5 mg PO DAILY RF: 0 magnesium oxide 400 mg Capsule 40 mg PO DAILY RF: 0 fluticasone 50 mcg/actuation Blister With Device 1 inh INHALATION Q12H RF: 0 polyethylene glycol 3350 [Miralax] 17 gram Powder In Packet 17 g PO DAILY PRN (Reason: Abdominal Discomfort) RF: 0 nitroglycerin 0.4 mg Tablet, Sublingual 0.4 mg SUBLINGUAL Q5-15M PRN (Reason: Constipation) RF: 0 letrozole 2.5 mg Tablet 2.5 mg PO DAILY RF: 0 calcium carbonate-vitamin D3 [Calcium 600 + D(3)] 600 mg calcium- 200 unit Capsule 1 tab PO QAM RF: 0 omega 6-ucs-lwt-fish oil [Fish Oil] 1,000 mg (120 mg-180 mg) Capsule 1,200 mg PO DAILY RF: 0 wheat dextrin [Benefiber Sugar Free (dextrin)] 3 gram/3.8 gram Powder 1 packet PO DAILY RF: 0 umeclidinium-vilanterol [Anoro Ellipta] 62.5-25 mcg/actuation Blister With Device 1 inh INHALATION Q24H RF: 0 apixaban [Eliquis] 5 mg Tablet 5 mg PO BID Qty: 60 RF: 0 ijxiawadxgo-kylbarhfn-bmxpjyjq [Trelegy Ellipta] 100-62.5-25 mcg Blister With Device 1 inh INHALATION DAILY RF: 0 Referrals: jonnathan noel [Other] - See Instructions (1 week ) Niru Barrera [Other] - See Instructions (1-2 weeks) Pawel Rodriguez MD [Primary Care Provider] - See Instructions Deveras,Ariadna A, MD [Physician] - See Instructions (as scheduled) Status ED Status: Left Department
[2018-11-01] MEDS: levoFLOXacin 500 MG Tablet PO SCH (15:32)
[2018-11-01 16:08] VITALS: PULSE 81; RESP 14
== END 2018-11-01 16:45 | disposition home health service (06) | DRG 309 ==
LOC: NEPE 18:54 → NEDA 21:59 → N04 23:59
PROVIDERS: ADMIT Hospitalist; ATTEND Hospitalist
DX: E11.9 Type 2 diabetes mellitus without complications; I48.1 Persistent atrial fibrillation; E78.5 Hyperlipidemia, unspecified; Z85.3 Personal history of malignant neoplasm of breast; F41.9 Anxiety disorder, unspecified; I67.1 Cerebral aneurysm, nonruptured; W22.03XA Walked into furniture, initial encounter; I11.0 Hypertensive heart disease with heart failure; Z79.01 Long term (current) use of anticoagulants; Z87.891 Personal history of nicotine dependence; T38.0X5A Adverse effect of glucocorticoids and synthetic analogues, initial encounter; I25.10 Atherosclerotic heart disease of native coronary artery without angina pectoris; R09.02 Hypoxemia; R53.1 Weakness; J44.1 Chronic obstructive pulmonary disease with (acute) exacerbation; I50.9 Heart failure, unspecified; D72.829 Elevated white blood cell count, unspecified; M79.672 Pain in left foot
CPT/HCPCS: 36600; 71010; 71020; 71045; 71046; 73630; 73718; 80048; 80053; 81001; 82805; 83036; 83520; 83880; 84484; 85025; 85027; 90774; 90775; 90784; 93005; 94150; 94640; 94664; 94665; 96374; 96375; 97116; 97162; 97166; 99285; C8952; J1644; J1940; J2920; J2930; J7506; J7512